=== PATIENT | male | born 1935 | race Caucasian/White ===

== ENCOUNTER 2018-06-18 11:32 | Emergency (ER) | payer MEDICARE, BC ==
[2018-06-18 12:03] VITALS: BP 158/90; PULSE 70; RESP 18; TEMP 98.4
--- NOTE | 2018-06-18 12:21 | ED ---
General Adult HPI - General Chief complaint: Skin/Abscess/Foreign Body Stated complaint: bleeding cyst in stomach Time Seen by Provider: 06/18/18 12:07 Source: patient Mode of arrival: ambulatory Limitations: no limitations - History of Present Illness Initial comments: 83-year-old male presenting with left lower abdominal quadrant skin lesion that he noticed 2 days ago. He denies any trauma, itching, pain to the area. He states he nurse's small amount bleeding from it today. He denies any fevers chills, chest pain shortness of breath, nausea vomiting diarrhea, other rashes. He did have a basal cell carcinoma removed recently but denies any other similar skin lesions. - Related Data Home Medications Medication Instructions Recorded Confirmed Tamsulosin HCl [Flomax] 0.4 mg PO BID 11/25/14 12/13/15 Finasteride [Proscar] 5 mg PO DAILY 11/11/15 12/13/15 Lovastatin [Mevacor] 40 mg PO HS 11/11/15 12/13/15 Multivit-Min/FA/Lycopen/Lutein 1 tab PO DAILY 11/11/15 12/13/15 [Centrum Silver Tablet] Ranitidine HCl [Zantac] 300 mg PO BID 11/11/15 12/13/15 amLODIPine BESYLATE/BENAZEPRIL 1 cap PO BID 11/11/15 12/13/15 [Lotrel 5-20 mg Capsule] Previous Rx's Medication Instructions Recorded Cephalexin [Keflex] 500 mg PO Q6HR 7 Days #28 cap 06/18/18 Allergies Allergy/AdvReac Type Severity Reaction Status Date / Time No Known Allergies Allergy Verified 12/13/15 11:32 Review of Systems ROS Statement: Those systems with pertinent positive or pertinent negative responses have been documented in the HPI. Review of Systems Constitutional: Denies fever, chills Eyes: Denies change in vision, Denies pain Ears, nose, mouth, throat: Denies headaches, Denies sore throat Cardiovascular: Denies chest pain. Denies palpitations Respiratory: Denies shortness of breath, Denies cough Gastrointestinal: Denies abdominal pain. Denies nausea, vomiting, diarrhea. Genitourinary: Denies hematuria, Denies infections Musculoskeletal: Denies pain, Denies swelling Integumentary: Positive rash Neurological: Denies headache, focal weakness, focal numbness Psychiatric: Denies anxiety, Denies depression Hematologic/Lymphatic: Denies easy bleeding or bruising ROS Other: All systems not noted in ROS Statement are negative. Past Medical History Past Medical History: Hypertension, Prostate Disorder History of Any Multi-Drug Resistant Organisms: None Reported Past Surgical History: Appendectomy Additional Past Surgical History / Comment(s): L sided basal cell carcinoma removed from L ear Past Psychological History: No Psychological Hx Reported Smoking Status: Never smoker Past Alcohol Use History: None Reported Past Drug Use History: None Reported General Exam - General Exam Comments Initial Comments: General: Awake, alert, No acute Distress HENT: Normocephalic. Atraumatic Eyes: PERRL. EOMI. No scleral icterus. No injected conjunctiva Neck: Full ROM Chest/Lungs: Clear to auscultation bilaterally. No wheezing, rhonchi, or rales Cardiac: Regular rate, rhythm. No murmurs or rubs Abdomen/GI: Soft, nontender, nondistended. No rebound, guarding, or rigidity. Musculoskeletal: Full ROM Skin: Warm, dry, intact. 1 cm circular lesion with serosanginous drainage. No induration or flluctuance. No warmth. Neurologic: A/Ox3, no weakness, no sensory deficit, no abnormal gait, no coordination deficit Limitations: no limitations Course Vital Signs 06/18/18 12:00 Temperature 98.4 F Pulse Rate 70 Respiratory 18 Rate Blood Pressure 158/90 O2 Sat by Pulse 93 L Oximetry Medical Decision Making - Medical Decision Making 83-year-old male presenting with skin lesion.On initial exam the patient is awake, alert, and in NAD. VSS. The lesion is not warm, there is no induration or fluctuance. Bedside ultrasound showed no area of fluid collection to be drained. A line of demarcation was drawn around the wound and it was dressed with Neosporin and a Band-Aid. The patient was instructed start taking Keflex tomorrow if the if any erythema extends beyond the line. He hasn't with his primary care physician on July 01 he was instructed to see him earlier this week for wound recheck. The patient is nontoxic and well-appearing and there is no evidence of systemic infection.No further emergent workup indicated. The patient was given return to ED instructions. They were instructed to follow up with their primary care provider. Stable for discharge at this time. Disposition Clinical Impression: Skin abnormality Disposition: HOME SELF-CARE Condition: Good Instructions: Cellulitis (ED) Prescriptions: Cephalexin [Keflex] 500 mg PO Q6HR 7 Days #28 cap Is patient prescribed a controlled substance at d/c from ED?: No
== END 2018-06-18 12:58 | disposition home or self-care (01) ==
LOC: EC 11:32
DX: L98.9 Disorder of the skin and subcutaneous tissue, unspecified (principal); I10 Essential (primary) hypertension; N42.9 Disorder of prostate, unspecified; Z85.828 Personal history of other malignant neoplasm of skin; Z90.49 Acquired absence of other specified parts of digestive tract; Z79.899 Other long term (current) drug therapy
CPT/HCPCS: 99283

== ENCOUNTER 2019-01-30 21:08 | Emergency (ER) | payer MEDICARE ==
[2019-01-30 21:39] VITALS: RESP 18; TEMP 98.5
[2019-01-30 22:50] VITALS: BP 136/83; PULSE 88
--- NOTE | 2019-01-30 23:32 | ED ---
ENT HPI - General Source: patient Mode of arrival: ambulatory Limitations: no limitations <Denise Lloyd - Last Filed: 01/31/19 04:28> <Ericka Salas - Last Filed: 01/31/19 06:17> - General Chief complaint: ENT Stated complaint: High BP, had a nosebleed - History of Present Illness Initial comments: 84-year-old male patient presents to the emergency department today for evaluation of epistaxis and elevated blood pressure. Patient states that around quarter after 8 this evening he developed nosebleed. Patient states he is ex periencing bleeding from the right nostril. Patient states this lasted approximately 45 minutes before stopped. Patient states during the nose. He did check his blood pressure was elevated in the 180s systolic, with diastolic around 100. Patient states he did check his blood pressures 6 or 7 times within a half an hour. In all blood pressures were elevated. Patient states he does take blood pressure medication Lotrel once in the morning and once at night. Patient denies any headache, facial pain, blurred vision, or double vision. Denies any chest pain or shortness of breath. Patient states he takes a baby aspirin but denies any other blood thinning medications. Denies any history of nosebleeds or nasal trauma. Patient denies any recent rash, fever, chills, abdominal pain, nausea, vomiting, diarrhea, constipation, back pain, numbness, tingling, dizziness, weakness, hematuria, dysuria, urinary urgency, urinary frequency, headache, visual changes, or any other complaints. (Denise Lloyd) - Related Data Home Medications Medication Instructions Recorded Confirmed Tamsulosin HCl [Flomax] 0.4 mg PO BID 11/25/14 12/13/15 Finasteride [Proscar] 5 mg PO DAILY 11/11/15 12/13/15 Lovastatin [Mevacor] 40 mg PO HS 11/11/15 12/13/15 Multivit-Min/FA/Lycopen/Lutein 1 tab PO DAILY 11/11/15 12/13/15 [Centrum Silver Tablet] Ranitidine HCl [Zantac] 300 mg PO BID 11/11/15 12/13/15 amLODIPine BESYLATE/BENAZEPRIL 1 cap PO BID 11/11/15 12/13/15 [Lotrel 5-20 mg Capsule] Previous Rx's Medication Instructions Recorded Cephalexin [Keflex] 500 mg PO Q6HR 7 Days #28 cap 06/18/18 Allergies Allergy/AdvReac Type Severity Reaction Status Date / Time No Known Allergies Allergy Verified 01/30/19 21:39 Review of Systems ROS Other: All systems not noted in ROS Statement are negative. <Denise Lloyd M - Last Filed: 01/31/19 04:28> ROS Other: All systems not noted in ROS Statement are negative. <Ericka Salas - Last Filed: 01/31/19 06:17> ROS Statement: Those systems with pertinent positive or pertinent negative responses have been documented in the HPI. Past Medical History Past Medical History: Hypertension, Prostate Disorder History of Any Multi-Drug Resistant Organisms: None Reported Past Surgical History: Appendectomy Additional Past Surgical History / Comment(s): L sided basal cell carcinoma removed from L ear, Past Psychological History: No Psychological Hx Reported Smoking Status: Never smoker Past Alcohol Use History: Daily Past Drug Use History: None Reported <Denise Lloyd M - Last Filed: 01/31/19 04:28> General Exam Limitations: no limitations General appearance: alert, in no apparent distress, other (Physical well- developed, well-nourished elderly male patient in no acute distress. Vital signs upon presentation are temperature 98.5F, pulse 95, respirations 18, blood pressure 167/91, pulse ox 93% on room air.) Eye exam: Present: normal appearance, PERRL, EOMI. Absent: scleral icterus, conjunctival injection, periorbital swelling ENT exam: Present: normal oropharynx, mucous membranes moist, other (Dried blood noted to the right naris. No evidence of septal hematoma or obvious nasal injury.). Absent: normal exam Neck exam: Present: normal inspection. Absent: tenderness, meningismus, lymphadenopathy Respiratory exam: Present: normal lung sounds bilaterally. Absent: respiratory distress, wheezes, rales, rhonchi, stridor Cardiovascular Exam: Present: regular rate, normal rhythm, normal heart sounds. Absent: systolic murmur, diastolic murmur, rubs, gallop, clicks GI/Abdominal exam: Present: soft, normal bowel sounds. Absent: distended, tenderness, guarding, rebound, rigid Neurological exam: Present: alert, oriented X3, CN II-XII intact Psychiatric exam: Present: normal affect, normal mood Skin exam: Present: warm, dry, intact, normal color. Absent: rash <Denise Lloyd - Last Filed: 01/31/19 04:28> Course Vital Signs 01/30/19 01/30/19 21:35 22:49 Temperature 98.5 F Pulse Rate 95 88 Respiratory 18 18 Rate Blood Pressure 167/91 136/83 O2 Sat by Pulse 93 L 94 L Oximetry Medical Decision Making <Denise Lloyd - Last Filed: 01/31/19 04:28> <Ericka Salas - Last Filed: 01/31/19 06:17> - Medical Decision Making 84-year-old male patient presented to the emergency department today for evaluation of nasal bleeding and elevated blood pressure. Physical examination did reveal dried blood to the right knee are however no active bleeding was noted. Patient's blood pressure did improve while in the emergency department to the 130s over 80s. He denies any current symptoms. We did discussed use of [id number] nasal saline to keep nasal passages moist. We discussed applying pressure if bleeding should recur. He is instructed to keep a log of his blood pressures and to follow-up with his primary care physician for recheck in 1-2 days. Return parameters were discussed in detail. He verbalizes understanding and agrees with this plan. (Denise Lloyd) I was available for consultation in the emergency department. The history and physical exam were done by the midlevel provider. I was consulted for this patient's care. I reviewed the case with the midlevel provider and based on their presentation of the patient, I agree with the assessment, medical decision making and plan of care as documented. Chart was dictated using [employer] dictation software. Attempts were made to correct any dictation errors however some typographical errors may persist. (Ericka Salas) Disposition Is patient prescribed a controlled substance at d/c from ED?: No Time of Disposition: 23:31 <Denise Lloyd - Last Filed: 01/31/19 04:28> <Ericka Salas - Last Filed: 01/31/19 06:17> Clinical Impression: Epistaxis, Hypertension Disposition: HOME SELF-CARE Condition: Good Instructions (If sedation given, give patient instructions): Nosebleed (ED), Hypertension (ED) Additional Instructions: Obtain nasal saline [id number]-vwo-[id number] and use to the nostrils 2-3 times a day to keep nasal passages moist. If bleeding recurs apply pressure for 20 minutes without letting up. It is process twice, bleeding continues present to the nearest emergency department for immediate evaluation. Monitor blood pressures over the next week, keep a log. Follow-up through primary care physician for recheck take the blood pressure log with you. Return to the emergency department immediately for any new, worsening, or concerning symptoms. Referrals: Hugh Walter MD [Primary Care Provider] - 1-2 days
== END 2019-01-31 00:04 | disposition home or self-care (01) ==
LOC: EC 21:08
DX: I10 Essential (primary) hypertension (principal); R04.0 Epistaxis; N42.9 Disorder of prostate, unspecified; Z79.82 Long term (current) use of aspirin; Z79.899 Other long term (current) drug therapy
CPT/HCPCS: 99283

== ENCOUNTER 2019-11-09 07:24 | Inpatient (IN) | payer MEDICARE ==
[2019-11-09] MEDS ORDERED: PANTOPRAZOLE 40 MG/10 ML VIAL IVP STA (07:51)
--- NOTE | 2019-11-09 07:54 | ED ---
General Adult HPI - General Chief complaint: GI Bleed Stated complaint: Rectal Bleeding Time Seen by Provider: 11/09/19 07:35 Source: patient, RN notes reviewed Mode of arrival: ambulatory Limitations: no limitations - History of Present Illness Initial comments: Patient is a pleasant 84-year-old male presenting to the emergency department with rectal bleeding. Patient did feel somewhat constipated and did take oral Dulcolax. Patient did have an episode of bright red blood per rectum around 36 hours ago. Patient had another episode is morning. No rectal pain. No abdominal pain. No history of similar symptoms. No nausea or vomiting. No weakness or fatigue or dyspnea. - Related Data Home Medications Medication Instructions Recorded Confirmed Tamsulosin HCl [Flomax] 0.4 mg PO BID 11/25/14 11/09/19 Finasteride [Proscar] 5 mg PO DAILY 11/11/15 11/09/19 Lovastatin [Mevacor] 40 mg PO HS 11/11/15 11/09/19 Ranitidine HCl [Zantac] 300 mg PO BID 11/11/15 11/09/19 amLODIPine BESYLATE/BENAZEPRIL 1 cap PO BID 11/11/15 11/09/19 [Lotrel 5-20 mg Capsule] Allergies Allergy/AdvReac Type Severity Reaction Status Date / Time No Known Allergies Allergy Verified 11/09/19 08:24 Review of Systems ROS Statement: Those systems with pertinent positive or pertinent negative responses have been documented in the HPI. ROS Other: All systems not noted in ROS Statement are negative. Constitutional: Denies: fever Eyes: Denies: eye pain ENT: Denies: ear pain Respiratory: Denies: cough Cardiovascular: Denies: chest pain Endocrine: Denies: fatigue Gastrointestinal: Reports: as per HPI. Denies: abdominal pain, nausea, vomiting , diarrhea Genitourinary: Denies: dysuria Musculoskeletal: Denies: back pain Skin: Denies: rash Neurological: Denies: weakness Past Medical History Past Medical History: Hypertension, Prostate Disorder History of Any Multi-Drug Resistant Organisms: None Reported Past Surgical History: Appendectomy Additional Past Surgical History / Comment(s): L sided basal cell carcinoma removed from L ear, Past Psychological History: No Psychological Hx Reported Smoking Status: Never smoker Past Alcohol Use History: Daily Past Drug Use History: None Reported General Exam Limitations: no limitations General appearance: alert, in no apparent distress Head exam: Present: normocephalic Eye exam: Present: normal appearance, PERRL ENT exam: Present: normal oropharynx Neck exam: Present: normal inspection Respiratory exam: Present: normal lung sounds bilaterally Cardiovascular Exam: Present: regular rate, normal rhythm Expanded Peripheral pulses: 2+: Dorsalis Pedis (R), Dorsalis Pedis (L) GI/Abdominal exam: Present: soft. Absent: distended, tenderness, guarding, rebound, rigid Rectal exam: Present: normal inspection, normal rectal tone, other (No stool on exam) Extremities exam: Present: normal inspection Neurological exam: Present: alert Psychiatric exam: Present: normal affect, normal mood Skin exam: Present: normal color Course Vital Signs 11/09/19 07:31 Temperature 97.8 F Pulse Rate 71 Respiratory 19 Rate Blood Pressure 181/106 O2 Sat by Pulse 94 L Oximetry Medical Decision Making - Medical Decision Making Patient reevaluated and updated. Case discussed with Dr. Bustillo, who will admit covering for medical call. - Lab Data Result diagrams: 11/09/19 08:04 11/09/19 08:04 Lab Results 11/09/19 11/09/19 11/09/19 Range/Units 08:04 08:04 08:04 WBC 4.6 (3.8-10.6) k/uL RBC 5.31 (4.30-5.90) m/uL Hgb 16.6 (13.0-17.5) gm/dL Hct 50.0 (39.0-53.0) % MCV 94.1 (80.0-100.0) fL MCH 31.2 (25.0-35.0) pg MCHC 33.2 (31.0-37.0) g/dL RDW 13.1 (11.5-15.5) % Plt Count 128 L (150-450) k/uL Neutrophils % 67 % Lymphocytes % 19 % Monocytes % 8 % Eosinophils % 2 % Basophils % 0 % Neutrophils # 3.1 (1.3-7.7) k/uL Lymphocytes # 0.9 L (1.0-4.8) k/uL Monocytes # 0.4 (0-1.0) k/uL Eosinophils # 0.1 (0-0.7) k/uL Basophils # 0.0 (0-0.2) k/uL PT 10.9 (9.0-12.0) sec INR 1.1 (<1.2) APTT 24.4 (22.0-30.0) sec Sodium (137-145) mmol/L Potassium (3.5-5.1) mmol/L Chloride (98-107) mmol/L Carbon Dioxide (22-30) mmol/L Anion Gap mmol/L BUN (9-20) mg/dL Creatinine (0.66-1.25) mg/dL Est GFR (CKD-EPI)AfAm (>60 ml/min/1.73 sqM) Est GFR (CKD-EPI)NonAf (>60 ml/min/1.73 sqM) Glucose (74-99) mg/dL Calcium (8.4-10.2) mg/dL Total Bilirubin (0.2-1.3) mg/dL AST (17-59) U/L ALT (4-49) U/L Alkaline Phosphatase (38-126) U/L Total Protein (6.3-8.2) g/dL Albumin (3.5-5.0) g/dL Stool Occult Blood Positive (Negative) 11/09/19 Range/Units 08:04 WBC (3.8-10.6) k/uL RBC (4.30-5.90) m/uL Hgb (13.0-17.5) gm/dL Hct (39.0-53.0) % MCV (80.0-100.0) fL MCH (25.0-35.0) pg MCHC (31.0-37.0) g/dL RDW (11.5-15.5) % Plt Count (150-450) k/uL Neutrophils % % Lymphocytes % % Monocytes % % Eosinophils % % Basophils % % Neutrophils # (1.3-7.7) k/uL Lymphocytes # (1.0-4.8) k/uL Monocytes # (0-1.0) k/uL Eosinophils # (0-0.7) k/uL Basophils # (0-0.2) k/uL PT (9.0-12.0) sec INR (<1.2) APTT (22.0-30.0) sec Sodium 139 (137-145) mmol/L Potassium 3.9 (3.5-5.1) mmol/L Chloride 107 (98-107) mmol/L Carbon Dioxide 28 (22-30) mmol/L Anion Gap 4 mmol/L BUN 16 (9-20) mg/dL Creatinine 0.97 (0.66-1.25) mg/dL Est GFR (CKD-EPI)AfAm 83 (>60 ml/min/1.73 sqM) Est GFR (CKD-EPI)NonAf 72 (>60 ml/min/1.73 sqM) Glucose 103 H (74-99) mg/dL Calcium 8.3 L (8.4-10.2) mg/dL Total Bilirubin 0.7 (0.2-1.3) mg/dL AST 20 (17-59) U/L ALT 12 (4-49) U/L Alkaline Phosphatase 61 (38-126) U/L Total Protein 6.2 L (6.3-8.2) g/dL Albumin 3.6 (3.5-5.0) g/dL Stool Occult Blood (Negative) Disposition Clinical Impression: Lower gastrointestinal hemorrhage Disposition: ADMITTED IP TO THIS HOSP Is patient prescribed a controlled substance at d/c from ED?: No Referrals: Hugh Walter MD [Primary Care Provider] - 1-2 days Decision Time: 10:00
[2019-11-09 08:24] LABS: Basophils % (A) 0 %; Eosinophils # (A) 0.1 k/uL (0-0.7); Eosinophils % (A) 2 %; HGB 16.6 gm/dL (13.0-17.5); Lymphocytes # (A) 0.9 k/uL (1.0-4.8); Lymphocytes % (A) 19 %; MCH 31.2 pg (25.0-35.0); MCHC 33.2 g/dL (31.0-37.0); MCV 94.1 fL (80.0-100.0); Mean Platelet Volume 7.2; Monocytes # (A) 0.4 k/uL (0-1.0); Monocytes % (A) 8 %; Neutrophils # (A) 3.1 k/uL (1.3-7.7); Neutrophils % (A) 67 %; Platelet Count 128 k/uL (150-450); RBC 5.31 m/uL (4.30-5.90); RDW 13.1 % (11.5-15.5); WBC 4.6 k/uL (3.8-10.6)
--- NOTE | 2019-11-09 08:29 | XR ---
EXAMINATION TYPE: XR abdomen 1V DATE OF EXAM: 11/09/2019 8:23 AM CLINICAL HISTORY: Rectal bleeding. TECHNIQUE: Two Upright KUB images of the abdomen are obtained. COMPARISON: None. FINDINGS: Scattered gas is seen in non-distended small bowel loops. Gas and fecal material is seen in non-distended colon. There is small left pleural effusion. Cardiomegaly. Osseous structures are kailey neralized. No pneumoperitoneum or suspicious calcifications. IMPRESSION: Overall nonobstructive bowel gas pattern.
[2019-11-09 08:34] LABS: INR 1.1 (<1.2); Partial Thromboplastin Time 24.4 sec (22.0-30.0); Prothrombin Time 10.9 sec (9.0-12.0)
[2019-11-09 08:37] LABS: Albumin 3.6 g/dL (3.5-5.0); Calcium 8.3 mg/dL (8.4-10.2); Potassium 3.9 mmol/L (3.5-5.1); Total Bilirubin 0.7 mg/dL (0.2-1.3); Total Protein 6.2 g/dL (6.3-8.2)
[2019-11-09] MEDS ORDERED: NALOXONE 0.4 MG/ML 1 ML VIAL IV PRN ×2 (10:00→11:17)
[2019-11-09] MEDS: SODIUM CHLORIDE 0.9% 1,000 ML IV SCH ×2 (11:01→21:34)
--- NOTE | 2019-11-09 11:29 | P.HPIM ---
History of Present Illness H&P Date: 11/09/19 Chief Complaint: Bleeding 84-year-old male presenting to the emergency department with rectal bleeding. Over the last few days patient has been feeling constipated, did not have a bowel movement for 2-3 days. He took oral Dulcolax. Patient had an episode of bright red blood per rectum around 36 hours ago then had another episode this morning. He states that he has history of hemorrhoids but they never bled in the past. He had constipation on and off but does not take any laxative on a regular basis. No rectal pain. No abdominal pain. No history of similar symptoms. No nausea or vomiting. No weakness or fatigue or dyspnea. No fevers or chills, no recent illness. In the emergency department her vital signs were all within normal limits. Hemoglobin was normal. No further bleeding was noted in the ER. He was admitted for further evaluation by GI. Review of Systems Complete review of system performed, pertinent positives per HPI, otherwise negative. Past Medical History Past Medical History: Hypertension, Prostate Disorder History of Any Multi-Drug Resistant Organisms: None Reported Past Surgical History: Appendectomy Additional Past Surgical History / Comment(s): L sided basal cell carcinoma removed from L ear, Past Psychological History: No Psychological Hx Reported Smoking Status: Never smoker Past Alcohol Use History: Daily Past Drug Use History: None Reported Medications and Allergies Home Medications Medication Instructions Recorded Confirmed Type Tamsulosin HCl [Flomax] 0.4 mg PO BID 11/25/14 11/09/19 History Finasteride [Proscar] 5 mg PO DAILY 11/11/15 11/09/19 History Lovastatin [Mevacor] 40 mg PO HS 11/11/15 11/09/19 History Ranitidine HCl [Zantac] 300 mg PO BID 11/11/15 11/09/19 History amLODIPine BESYLATE/BENAZEPRIL 1 cap PO BID 11/11/15 11/09/19 History [Lotrel 5-20 mg Capsule] Allergies Allergy/AdvReac Type Severity Reaction Status Date / Time No Known Allergies Allergy Verified 11/09/19 08:24 Physical Exam Vitals: Vital Signs Temp Pulse Resp BP Pulse Ox 11/09/19 10:20 89 18 144/89 94 L 11/09/19 07:31 97.8 F 71 19 181/106 94 L Intake and Output 0311/09/19 11/09/19 22:59 06:59 14:59 Other: Weight 109.679 kg Constitutional: No acute distress, conversant, pleasant Eyes:Anicteric sclerae, moist conjunctiva, no lid-lag, PERRLA, ENMT: Oropharynx clear, no erythema, exudates Neck: Supple, FROM, no masses, or JVD, No carotid bruits, No thyromegaly Lungs: Clear to auscultation, Clear to percussion, Normal respiratory effort, no accessory muscle use Cardiovascular: Heart regular in rate and rhythm, No murmurs, gallops, or rubs, No peripheral edema Abdominal: Soft, Nontender, no guarding, rebound or rigidity, Normoactive bowel sounds, No hepatomegaly, No splenomegaly, No palpable mass Skin: Normal temperature, tone, texture, turgor, no induration, No subcutaneous nodules, No rash, lesions, No ulcers Extremities: No digital cyanosis, No clubbing, Pedal pulses intact and symmetrical, Radial pulses intact and symmetrical, No calf tenderness Psychiatric: Alert and oriented to person, place and time, appropriate affect, intact judgement Neuro: Muscles Strength 5/5 in all 4 extremities, Sensation to light touch grossly present throughout, Cranial nerves II-XII grossly intact, no focal sensory deficits Results CBC & Chem 7: 11/09/19 08:04 11/09/19 08:04 Labs: Abnormal Lab Results - Last 24 Hours (Table) 11/09/19 11/09/19 Range/Units 08:04 08:04 Plt Count 128 L (150-450) k/uL Lymphocytes # 0.9 L (1.0-4.8) k/uL Glucose 103 H (74-99) mg/dL Calcium 8.3 L (8.4-10.2) mg/dL Total Protein 6.2 L (6.3-8.2) g/dL Assessment and Plan Plan: Acute lower GI bleeding Case discussed with GI, no plans for colonoscopy at this point. Bleeding is likely secondary to internal hemorrhoids We'll use Anusol rectal cream Monitor CBC Advised to take laxatives on a regular basis. Essential hypertension BPH Stable Resume meds Patient admitted to inpatient, expected length of stay more than 2 midnights Anticipated disposition: home anticipated discharge: 1-2 days
[2019-11-09] MEDS: FAMOTIDINE 20 MG TAB PO SCH ×2 (12:51→21:35)
[2019-11-09] MEDS: TAMSULOSIN 0.4 MG CAP.ER.24H PO SCH ×2 (12:51→21:35)
[2019-11-09] MEDS: amLODIPine 5 MG TAB PO SCH ×2 (12:51→21:35)
[2019-11-09] MEDS: FINASTERIDE 5 MG TAB PO SCH (12:51)
[2019-11-09] MEDS: LISINOPRIL 20 MG TAB PO SCH (12:51)
[2019-11-09] MEDS: HYDROCORTISONE 2.5% RECTAL CREAM 30 GM TUBE RECTAL SCH ×2 (12:52→21:36)
--- NOTE | 2019-11-09 20:24 | P.CONS ---
History of Present Illness - Reason for Consult Consult date: 11/09/19 Rectal bleeding Requesting physician: Adarsh Emanuel - Chief Complaint Rectal bleeding - History of Present Illness 84-year-old male with a medical history significant for hypertension, BPH and dyslipidemia who presented to the hospital due to reports of right red blood per rectum. The patient reports 2 episodes of painless bright red blood per rectum prior to presentation. He reports intermittent constipation over the past year. He reports that during times of constipation he will take MiraLAX as needed in order to bowel movement. Earlier in the week the patient had been suffering from constipation for 2-3 days and noted blood on the toilet paper and in the bowl after having a bowel movement. He does state that he was having significant straining with a bowel movement but denies any pain or cramping. No nausea, vomiting or melena. He does take aspirin daily. The patient subsequently had a further bloody bowel movement and presented for further e valuation. No prior history of GI bleed reported. Last colonoscopy over 10 years ago per his recollection and negative. The patient had an x-ray of the abdomen which was negative and stool testing which was positive. Hemoglobin on presentation 16.6 with WBC 4.6, platelet count 128,000 and INR 1.1. No further episodes since presentation. Review of Systems REVIEW OF SYSTEMS: CONSTITUTIONAL: Denies any fevers, chills, weight change or fatigue. CARDIOVASCULAR: Denies any chest pain, palpitations high or low blood pressures RESPIRATORY: Denies any shortness of breath, hemoptysis or cough. GENITOURINARY: No dysuria or hematuria, patient has a known history of BPH. MUSCULOSKELETAL: No weakness reported. SKIN: Denies any new rashes or lesions, jaundice or pallor. PSYCHIATRIC: Denies any depression or anxiety. NEUROLOGY: Denies headache, denies any new focal deficits. EARS/NOSE/THROAT: No recent hearing change, congestion, nasal discharge or sore throat. EYES: No pain in eyes, discharge or change in vision. GASTROINTESTINAL: As per HPI. Past Medical History Past Medical History: Hypertension, Prostate Disorder History of Any Multi-Drug Resistant Organisms: None Reported Past Surgical History: Appendectomy Additional Past Surgical History / Comment(s): L sided basal cell carcinoma removed from L ear, Past Psychological History: No Psychological Hx Reported Smoking Status: Never smoker Past Alcohol Use History: Daily Past Drug Use History: None Reported - Past Family History Mother Family Medical History: CVA/TIA Father Family Medical History: Myocardial Infarction ([place]) Medications and Allergies Home Medications Medication Instructions Recorded Confirmed Type Tamsulosin HCl [Flomax] 0.4 mg PO BID 11/25/14 11/09/19 History Finasteride [Proscar] 5 mg PO DAILY 11/11/15 11/09/19 History Lovastatin [Mevacor] 40 mg PO HS 11/11/15 11/09/19 History Ranitidine HCl [Zantac] 300 mg PO BID 11/11/15 11/09/19 History amLODIPine BESYLATE/BENAZEPRIL 1 cap PO BID 11/11/15 11/09/19 History [Lotrel 5-20 mg Capsule] Allergies Allergy/AdvReac Type Severity Reaction Status Date / Time No Known Allergies Allergy Verified 11/09/19 08:24 Physical Exam Vitals: Vital Signs Temp Pulse Pulse Resp BP BP Pulse Ox 11/09/19 16:00 76 17 11/09/19 15:00 97.8 F 76 17 145/88 89 L 11/09/19 13:04 18 11/09/19 10:40 97.8 F 89 18 144/89 94 L 11/09/19 10:20 89 18 144/89 94 L 11/09/19 07:31 97.8 F 71 19 181/106 94 L Intake and Output 11/09/19 11/09/19 11/09/19 06:59 14:59 22:59 Intake Total 600 Balance 600 Intake: Intake, IV Titration 350 Amount Sodium Chloride 0.9% 1, 350 000 ml @ 100 mls/hr IV . Q10H [facility] Rx#:[id number] Oral 250 Other: Weight 109.679 kg On physical examination, patient appears comfortable in no apparent distress. HEAD: Normocephalic, atraumatic. EYES: No scleral icterus. No conjunctival injection. MOUTH: No lesions, tongue midline. NECK: Trachea midline, no gross abnormalities. CHEST: Clear to auscultation with no wheezing or rhonchi appreciated. HEART: Regular rate and rhythm. ABDOMEN: Soft, obese. Bowel sounds are positive. No organomegaly. No guarding or rigidity. EXTREMITIES: No pedal edema. SKIN: No rashes, no jaundice. NEUROLOGIC: Alert and oriented x3. No focal deficits. Results CBC & Chem 7: 11/09/19 08:04 11/09/19 08:04 Labs: Abnormal Lab Results - Last 24 Hours (Table) 11/09/19 11/09/19 Range/Units 08:04 08:04 Plt Count 128 L (150-450) k/uL Lymphocytes # 0.9 L (1.0-4.8) k/uL Glucose 103 H (74-99) mg/dL Calcium 8.3 L (8.4-10.2) mg/dL Total Protein 6.2 L (6.3-8.2) g/dL Abdominal x-ray: report reviewed (Overall nonobstructive bowel gas pattern on x- ray abdomen.) Assessment and Plan (1) Lower gastrointestinal hemorrhage Narrative/Plan: 84-year-old male with no prior history of GI bleeding presenting to the hospital with complaints of 2 episodes of painless bright red blood per rectum. Patient reports intermittent constipation over the past year and prior to development of painless bright red blood per rectum. He'll intermittently uses MiraLAX for improvement of his constipation. He does report straining prior to seeing the blood both with wiping and in the toilet paper. Last colonoscopy over 10 years ago. No prior history of GI bleed. No abdominal pain or cramping reported. He does report some perirectal soreness. Unknown etiology of GI bleed with gregory picion for likely perirectal disease, cannot rule out diverticular bleed, AVM, malignancy or other etiology. Current Visit: Yes Status: Acute Code(s): K92.2 - GASTROINTESTINAL HEMORRHAGE, UNSPECIFIED SNOMED Code(s): 95551636 Plan: Supportive care Clear liquid diet Monitor hemoglobin and hematocrit and transfuse as needed Local hemorrhoidal care MiraLAX nightly Will hold off on endoscopic evaluation at this time, but can consider in the future either during hospitalization as patient has further rectal bleeding or fall in hemoglobin or in the outpatient setting after discharge Anusol twice a day Thank you for allowing us to participate in the care of the patient we will continue to follow
[2019-11-09] MEDS ORDERED: ATORVASTATIN 10 MG TAB PO SCH (21:00)
[2019-11-09] MEDS ORDERED: POLYETHYLENE GLYCOL 3350 17 GM POWD.PACK PO SCH (21:00)
[2019-11-09 21:02] VITALS: RESP 18
[2019-11-10 02:01] VITALS: PULSE 76
[2019-11-10] MEDS: SODIUM CHLORIDE 0.9% 1,000 ML IV SCH (05:55)
[2019-11-10 07:00] LABS: Basophils % (A) 0 %; Eosinophils # (A) 0.1 k/uL (0-0.7); Eosinophils % (A) 2 %; HGB 15.5 gm/dL (13.0-17.5); Lymphocytes # (A) 1.1 k/uL (1.0-4.8); Lymphocytes % (A) 21 %; MCH 31.3 pg (25.0-35.0); MCHC 33.1 g/dL (31.0-37.0); MCV 94.6 fL (80.0-100.0); Mean Platelet Volume 7.3; Monocytes # (A) 0.4 k/uL (0-1.0); Monocytes % (A) 7 %; Neutrophils # (A) 3.5 k/uL (1.3-7.7); Neutrophils % (A) 67 %; Platelet Count 131 k/uL (150-450); RBC 4.97 m/uL (4.30-5.90); RDW 13.1 % (11.5-15.5); WBC 5.2 k/uL (3.8-10.6)
[2019-11-10 07:11] LABS: African American GFR (CKD) >90 (>60 ml/min/1.73 sqM); Anion Gap 3 mmol/L; Blood Urea Nitrogen 10 mg/dL (9-20); Calcium 8.1 mg/dL (8.4-10.2); Carbon Dioxide 27 mmol/L (22-30); Chloride 107 mmol/L (98-107); Glucose 90 mg/dL (74-99); Non-African American GFR(CKD) 79 (>60 ml/min/1.73 sqM); Sodium 137 mmol/L (137-145)
[2019-11-10 07:35] VITALS: BP 154/82; TEMP 98.4
[2019-11-10] MEDS: FAMOTIDINE 20 MG TAB PO SCH (07:58)
[2019-11-10] MEDS: FINASTERIDE 5 MG TAB PO SCH (07:58)
[2019-11-10] MEDS: LISINOPRIL 20 MG TAB PO SCH (07:58)
[2019-11-10] MEDS: amLODIPine 5 MG TAB PO SCH (07:58)
[2019-11-10] MEDS: TAMSULOSIN 0.4 MG CAP.ER.24H PO SCH (07:59)
[2019-11-10] MEDS: HYDROCORTISONE 2.5% RECTAL CREAM 30 GM TUBE RECTAL SCH (07:59)
[2019-11-10] MEDS ORDERED: PANTOPRAZOLE 40 MG/10 ML VIAL IV SCH (09:00)
[2019-11-10] MEDS ORDERED: WITCH HAZEL 1 EACH MED..PAD TOPICAL PRN (11:53)
[2019-11-10] MEDS ORDERED: HYDROCORTISONE SUPPOSITORY 25 MG SUPP RECTAL SCH (12:00)
--- NOTE | 2019-11-10 13:07 | P.DS ---
Providers Date of admission: 11/09/19 11:17 Expected date of discharge: 11/10/19 Attending physician: Adarsh Emanuel MD Consults: 11/09/19 10:01 Consult Physician Urgent Consulting Provider: Antwan Porras Consult Reason/Comments: gi hemorrhage Do you want consulting provider notified?: Yes Primary care physician: [facility] Course: 84-year-old male presenting to the emergency department with rectal bleeding. Over the last few days patient has been feeling constipated, did not have a bowel movement for 2-3 days. He took oral Dulcolax. Patient had an episode of bright red blood per rectum around 36 hours ago then had another episode this morning. He states that he has history of hemorrhoids but they never bled in the past. His hemoglobin on admission was 16.6. His hemoglobin the following day was 15.5. He was evaluated by GI and recommended colonoscopy in the outpatient setting and symptomatic treatment for hemorrhoids. Patient was seen and examined. No acute events overnight. Patient reports streaks of blood when he wipes but has not had a bowel movement today. He denies any chest pain, shortness of breath or palpitations. No nausea or vomiting. No fever or chills. General: [non toxic], [no distress], [appears at stated age] Derm: [warm], [dry] Head: [atraumatic], [normocephalic], [symmetric] Eyes: [EOMI], [no lid lag], [anicteric sclera] Mouth: [no lip lesion], [mucus membranes moist] Cardiovascular: [S1S2 reg], [no murmur], [positive DP pulse bilateral], Lungs: [CTA bilateral], [no rhonchi, no rales] , [no accessory muscle use] Abdominal: [soft], [ nontender to palpation], [no guarding], [no appreciable organomegaly] Ext: [no gross muscle atrophy], [no edema], [no contractures] Neuro: [no focal neuro deficits] Psych: [Alert], [oriented], [appropriate affect] Acute lower GI bleed likely hemorrhoids Hypertension BPH Patient's hemoglobin has been stable during his admission. His stool for occult blood was positive. GI has evaluated the patient and recommended supportive care, advancing his diet and monitoring hemoglobin. I discussed the case with Dr. Porras, colonoscopy recommended in the outpatient setting. He has been started on hydrocortisone rectal suppository along with witch rich. His blood pressure today is 154/82. His home medication of amlodipine has been resumed. We'll monitor the patient during lunch for which she has been started on low fiber diet. If there is no further rectal bleed, patient will be discharged home today with close follow-up with his PCP within 3 days and with gastroenterology within 1 week. Patient verbalized understanding of the plan. This complex discharge took about 35 minutes to complete. Pertinent Studies: KUB Plan - Discharge Summary Discharge Rx Participant: No New Discharge Prescriptions: New Hydrocortisone Suppository [Anusol-Hc] 25 mg RECTAL DAILY #30 supp Polyethylene Glycol 3350 [Miralax] 17 gm PO HS #30 powd.pack Hydrocortisone Pr Cream [Proctosol-Hc 2.5%] 1 applic RECTAL BID applic Witch Rich [Tucks Medicated Pads] 1 each TOPICAL QID PRN med..pad PRN Reason: Hemorrhoids Continue Tamsulosin HCl [Flomax] 0.4 mg PO BID Finasteride [Proscar] 5 mg PO DAILY Lovastatin [Mevacor] 40 mg PO HS Ranitidine HCl [Zantac] 300 mg PO BID amLODIPine BESYLATE/BENAZEPRIL [Lotrel 5-20 MG] 1 cap PO BID Discharge Medication List Tamsulosin HCl [Flomax] 0.4 mg PO BID 11/25/14 [History] Finasteride [Proscar] 5 mg PO DAILY 11/11/15 [History] Lovastatin [Mevacor] 40 mg PO HS 11/11/15 [History] Ranitidine HCl [Zantac] 300 mg PO BID 11/11/15 [History] amLODIPine BESYLATE/BENAZEPRIL [Lotrel 5-20 MG] 1 cap PO BID 11/11/15 [History] Hydrocortisone Pr Cream [Proctosol-Hc 2.5%] 1 applic RECTAL BID applic 11/10/19 [Rx] Hydrocortisone Suppository [Anusol-Hc] 25 mg RECTAL DAILY #30 supp 11/10/19 [Rx] Polyethylene Glycol 3350 [Miralax] 17 gm PO HS #30 powd.pack 11/10/19 [Rx] Witch Rich [Tucks Medicated Pads] 1 each TOPICAL QID PRN med..pad 11/10/19 [Rx] Follow up Appointment(s)/Referral(s): Hugh Walter MD [Primary Care Provider] - 1-2 days Antwan Porras MD [STAFF PHYSICIAN] - 1 Week Activity/Diet/Wound Care/Special Instructions: Diet: Low fiber Follow-up PCP within 3 days of discharge. Follow-up with GI within 1 week of discharge. Take all medications as advised. Come back to the ED for large amounts of rectal bleed, chest pain, dizziness, shortness of breath or palpitations. Discharge Disposition: HOME SELF-CARE
== END 2019-11-10 14:47 | disposition home or self-care (01) | DRG 395 ==
LOC: EC 07:24 → 4SSUR 10:08 → OBSVTOIN 11:17
PROVIDERS: ADMIT Internal Medicine; ATTEND Internal Medicine
DX: K64.8 Other hemorrhoids (principal); E78.5 Hyperlipidemia, unspecified; I10 Essential (primary) hypertension; K59.00 Constipation, unspecified; N40.0 Benign prostatic hyperplasia without lower urinary tract symptoms; Z79.82 Long term (current) use of aspirin; Z79.899 Other long term (current) drug therapy; Z82.49 Family history of ischemic heart disease and other diseases of the circulatory system; Z85.828 Personal history of other malignant neoplasm of skin
CPT/HCPCS: 36415; 74018; 80048; 80053; 82272; 85025; 85610; 85730; 96374; 99284

== ENCOUNTER → 2023-06-01 | Outpatient (CLI) | payer MEDICARE ==
[2023-06-01 14:53] LABS: African American GFR (CKD) 86 (>60 ml/min/1.73 sqM); Blood Urea Nitrogen 17 mg/dL (9-20); Non-African American GFR(CKD) 75 (>60 ml/min/1.73 sqM)
--- NOTE | 2023-06-02 07:31 | CT ---
EXAMINATION TYPE: CT urogram wo/w con CT DLP: 5132.90 mGycm, Automated exposure control for dose reduction was used. DATE OF EXAM: 06/01/2023 4:06 PM COMPARISON: None CLINICAL INDICATION:Male, 88 years old with history of R31.0 GROSS HEMATURIA; PHH, UTI, gross hematur ia TECHNIQUE: Urogram of the abdomen and pelvis was performed before and after the administration of 100 cc of IV c ontrast Isovue 300 contrast. Delayed imaging was performed. Coronal and sagittal reformats were perfo rmed. One or more CT dose reduction strategies were utilized during this examination. 2D and 3D recon structions are performed to assist visualization of the urinary tract on a separate workstation. FINDINGS: GENITOURINARY: RIGHT KIDNEY AND URETER: No calculi. No hydronephrosis or hydroureter. No renal mass or other lesions . No urothelial lesions: no filling defect, dilation, stricture or wall thickening. LEFT KIDNEY AND URETER: No calculi. No hydronephrosis or hydroureter. No solid enhancing mass. Exophy tic left mid kidney 1.4 cm cyst. No urothelial lesions: no filling defect, dilation, stricture or wal l thickening. URINARY BLADDER: Not optimally distended. No evidence of calculi. No gross evidence of mass or other lesions. REPRODUCTIVE: Markedly enlarged prostate gland measuring 8.1 x 7.9 cm. Coarse calcifications identifi ed. This indents upon the urinary bladder base. ABDOMEN LIVER: . GALLBLADDER AND BILE DUCTS: Unremarkable PANCREAS: Unremarkable. SPLEEN: Unremarkable. ADRENAL GLANDS: Unremarkable. STOMACH AND BOWEL: Distal colonic diverticulosis without evidence for acute diverticulitis.. No evide nce of bowel obstruction. PERITONEUM: No evidence of pneumoperitoneum, free fluid, or adenopathy. VASCULATURE: Atherosclerotic calcifications are present throughout the abdominal aorta and its branch es. No abdominal aortic aneurysm. MUSCULOSKELETAL: No acute osseous abnormalities. Moderate multilevel degenerative changes of the thor acolumbar spine. Remote anterior wedge compression deformity of the L1 vertebral body with approximat tesha 50% height loss and no retropulsion. There are 6 lumbar type vertebral bodies identified. SOFT TISSUE/ABDOMINAL WALL: Fat filled bilateral inguinal hernias. 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 Bilate ral gynecomastia. Left basilar subsegmental atelectasis. Moderate coronary artery calcifications. Dil ated main pulmonary measuring up to 3.8 cm. IMPRESSION: 1. No evidence of urolithiasis or concerning renal/urothelial neoplasm. 2. Markedly enlarged prostate gland with indentation upon the urinary bladder base. Correlate with PS A values. 3. 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 4. Colonic diverticulosis without evidence for acute diverticulitis. 5. Chronic appearing anterior wedge compression deformity the L1 vertebral body. Correlate with point tenderness. 6. Dilated main pulmonary artery which can be seen in the setting of pulmonary arterial hypertension. 7. Fat filled bilateral inguinal hernias.
== END | disposition home or self-care (01) ==
LOC: RADCTMAIN 13:49
PROVIDERS: ATTEND Urology
DX: N39.0 Urinary tract infection, site not specified (principal); K57.30 Diverticulosis of large intestine without perforation or abscess without bleeding; M48.56XA Collapsed vertebra, not elsewhere classified, lumbar region, initial encounter for fracture; N40.2 Nodular prostate without lower urinary tract symptoms; K40.20 Bilateral inguinal hernia, without obstruction or gangrene, not specified as recurrent; R31.0 Gross hematuria
CPT/HCPCS: 82565; 84520; 74178; 36415; 74400; Q9967

== ENCOUNTER 2023-11-09 13:08 | Inpatient (IN) | payer MEDICARE ==
[2023-11-09] MEDS: ACETAMINOPHEN TAB 500 MG TAB PO STA (13:38)
[2023-11-09] MEDS: IBUPROFEN 600 MG TAB PO STA (13:39)
[2023-11-09 13:40] LABS: HCT 45.4 % (39.0-53.0); HGB 14.8 gm/dL (13.0-17.5); MCH 32.2 pg (25.0-35.0); MCHC 32.7 g/dL (31.0-37.0); MCV 98.5 fL (80.0-100.0); Mean Platelet Volume 7.4; RBC 4.61 m/uL (4.30-5.90); RDW 13.4 % (11.5-15.5); WBC 3.8 k/uL (3.8-10.6)
--- NOTE | 2023-11-09 13:51 | ED ---
General Adult HPI - General Chief complaint: Arrhythmia/Palpitations Stated complaint: AFIB Time Seen by Provider: 11/09/23 13:15 Source: patient, EMS, RN notes reviewed, old records reviewed Mode of arrival: EMS Limitations: no limitations - History of Present Illness Initial comments: This is an 88-year-old male who presents to the emergency department because he was having difficulty breathing and felt his heart racing. When EMS arrived his heart rate was 145 and they gave the patient 20 of Cardizem. On arrival patient's heart rate was about 90 beats a minute. Patient states he still feels short of breath in the emergency department. Patient denies any fever chills or cough. Patient denies any chest pain. Patient has no abdominal pain patient has no nausea vomiting diarrhea. Patient denies any headache patient denies numbness or weakness - Related Data Home Medications Medication Instructions Recorded Confirmed Tamsulosin HCl [Flomax] 0.4 mg PO BID 11/25/14 11/09/23 Finasteride [Proscar] 5 mg PO DAILY 11/11/15 11/09/23 Lovastatin [Mevacor] 40 mg PO HS 11/11/15 11/09/23 amLODIPine BESYLATE/BENAZEPRIL 1 cap PO BID 11/11/15 11/09/23 [Lotrel 5-20 MG] Apixaban [Eliquis] 2.5 mg PO BID 11/09/23 11/09/23 Aspirin EC [Ecotrin Low Dose] 81 mg PO DAILY 11/09/23 11/09/23 Calcium 1000mg 1,000 mg PO DAILY 11/09/23 11/09/23 Cholecalciferol [Vitamin D3 (25 25 mcg PO DAILY 11/09/23 11/09/23 Mcg = 1000 Iu)] Famotidine [Pepcid] 40 mg PO BID 11/09/23 11/09/23 Hydrocortisone Cream 1 applic TOPICAL BID PRN 11/09/23 11/09/23 [Hydrocortisone 2.5% Cream] Ibandronate Sodium [Boniva] 150 mg PO Q30D 11/09/23 11/09/23 Msm(Unknown Dose) 1 tab PO DAILY 11/09/23 11/09/23 Multivitamins, Thera [Multivitamin 1 tab PO DAILY 11/09/23 11/09/23 (formulary)] Vitamin C(Unknown Dose) 1 tab PO DAILY 11/09/23 11/09/23 polyethylene glycoL 3350 [Miralax] 17 gm PO DAILY 11/09/23 11/09/23 Allergies Allergy/AdvReac Type Severity Reaction Status Date / Time No Known Allergies Allergy Verified 11/09/23 16:26 Review of Systems ROS Statement: Those systems with pertinent positive or pertinent negative responses have been documented in the HPI. ROS Other: All systems not noted in ROS Statement are negative. Past Medical History Past Medical History: Atrial Fibrillation, Hypertension, Prostate Disorder History of Any Multi-Drug Resistant Organisms: None Reported Past Surgical History: Appendectomy Additional Past Surgical History / Comment(s): L sided basal cell carcinoma removed from L ear, Past Psychological History: No Psychological Hx Reported Past Alcohol Use History: Daily Past Drug Use History: None Reported - Past Family History Mother Family Medical History: CVA/TIA Father Family Medical History: Myocardial Infarction ([place]) General Exam - General Exam Comments Initial Comments: GENERAL: Patient is well-developed and well-nourished. Patient is nontoxic and well- hydrated and is in mild distress. Patient's O2 sat is 67% on room air ENT: Neck is soft and supple. No significant lymphadenopathy is noted. Oropharynx is clear. Moist mucous membranes. Neck has full range of motion without eliciting any pain. EYES: The sclera were anicteric and conjunctiva were pink and moist. Extraocular movements were intact and pupils were equal round and reactive to light. Eyelids were unremarkable. PULMONARY: Unlabored respirations. Good breath sounds bilaterally. No audible rales rhonchi or wheezing was noted. CARDIOVASCULAR: Patient has an irregular heart rate at that rate of about 90 ABDOMEN: Soft and nontender with normal bowel sounds. SKIN: Skin is clear with no lesions or rashes and otherwise unremarkable. NEUROLOGIC: Patient is alert and oriented x3. Cranial nerves II through XII are grossly intact. Motor and sensory are also intact. Normal speech, volume and content. Symmetrical smile. MUSCULOSKELETAL: Normal extremities with adequate strength and full range of motion. 1+ edema bilaterally LYMPHATICS: No significant lymphadenopathy is noted PSYCHIATRIC: Normal psychiatric evaluation. Limitations: no limitations Course Vital Signs 11/09/23 11/09/23 11/09/23 13:15 13:20 13:30 Temperature 100.7 F H Pulse Rate 102 H Pulse Rate [ 105 H Powerhouse Tender ] Respiratory 17 Rate Blood Pressure 109/59 112/57 O2 Sat by Pulse 83 L Oximetry Fraction of Inspired Oxygen (FIO2) 11/09/23 11/09/23 11/09/23 13:45 14:00 14:01 Temperature Pulse Rate 97 101 H 96 Pulse Rate [ Powerhouse Tender ] Respiratory 17 19 Rate Blood Pressure 116/63 O2 Sat by Pulse 90 L 91 L Oximetry Fraction of Inspired Oxygen (FIO2) 11/09/23 11/09/23 11/09/23 14:16 15:30 15:45 Temperature Pulse Rate 92 89 89 Pulse Rate [ Powerhouse Tender ] Respiratory 16 15 Rate Blood Pressure 101/60 102/63 O2 Sat by Pulse 94 L 91 L Oximetry Fraction of Inspired Oxygen (FIO2) 11/09/23 11/09/23 11/09/23 16:00 17:32 17:38 Temperature Pulse Rate 90 Pulse Rate [ Powerhouse Tender ] Respiratory 16 Rate Blood Pressure 99/67 O2 Sat by Pulse 91 L Oximetry Fraction of 100 100 Inspired Oxygen (FIO2) Medical Decision Making - Medical Decision Making EKG shows atrial flutter at 88 bpm QRS is 142 QT interval 386 QTc is 432. Patient's EKG shows no ST segment ovation or depression patient has a right bundle branch block Was pt. sent in by a medical professional or institution (, [facility], TELECOMMUNICATIONS MANAGER, urgent care, hospital, or skilled nursing...) When possible be specific @ -No Did you speak to anyone other than the patient for history (EMS, parent, family, police, friend...)? What history was obtained from this source @ -EMS gave most of the history Did you review nursing and triage notes (agree or disagree)? Why? @ -I reviewed and agree with nursing and triage notes Were old charts reviewed (outside hosp., previous admission, EMS record, old EKG, old radiological studies, urgent care reports/EKG's, skilled nursing records)? Report findings @ -I reviewed old charts and old lab work on this patient Differential Diagnosis (chest pain, altered mental status, abdominal pain women, abdominal pain men, vaginal bleeding, weakness, fever, dyspnea, syncope, headache, dizziness, GI bleed, back pain, seizure, CVA, palpatations, mental health, musculoskeletal)? @ -Differential Palpitations Ventricular arrhythmias, atrial arrhythmias, myocardial infarction, anemia, thyrotoxicosis, electrolyte imbalance, hypokalemia, pulmonary embolism, pulmonary disease, drugs, alcohol, anxiety, stress.... This is not meant to be an all-inclusive list. EKG interpreted by me (3pts min.). @ -As above X-rays interpreted by me (1pt min.). @ -Chest x-ray shows a hiatal hernia and some mild pulmonary edema CT interpreted by me (1pt min.). @ -CT scan of the chest shows no obvious PEs. U/S interpreted by me (1pt. min.). @ -None done What testing was considered but not performed or refused? (CT, X-rays, U/S, labs)? Why? @ -None What meds were considered but not given or refused? Why? @ -None Did you discuss the management of the patient with other professionals (professionals i.e. , PA, TELECOMMUNICATIONS MANAGER, lab, RT, psych nurse, sr. social media & mobile manager, technical applications scientist, teacher, front desk officer, pillowcase cutter)? Give summary @ -I spoke with [facility] they agreed admit the patient admit the patient wrote admitting orders Was smoking cessation discussed for >3mins.? @ -No Was critical care preformed (if so, how long)? @ -No Were there social determinants of health that impacted care today? How? (Homelessness, low income, unemployed, alcoholism, drug addiction, transportation, low edu. Level, literacy, decrease access to med. care, fpc, rehab)? @ -No Was there de-escalation of care discussed even if they declined (Discuss DNR or withdrawal of care, Hospice)? DNR status @ -No What co-morbidities impacted this encounter? (DM, HTN, Smoking, COPD, CAD, Cancer, CVA, ARF, Chemo, Hep., AIDS, mental health diagnosis, sleep apnea, morbid obesity)? @ -None Was patient admitted / discharged? Hospital course, mention meds given and route, prescriptions, significant lab abnormalities, going to OR and other pertinent info. @ -Patient's pulse ox was low when he arrived at 67% we placed the patient on 8 L and he got up to 93 so I put the patient on BiPAP. Patient also had a urinary tract infection so I started the patient on antibiotics when I noticed the urinary tract infection at 5:25 PM patient will be admitted to [facility]. I consulted pulmonary Undiagnosed new problem with uncertain prognosis? @ -No Drug Therapy requiring intensive monitoring for toxicity (Heparin, Nitro, Insulin, Cardizem)? @ -No Were any procedures done? @ -No Diagnosis/symptom? @ -Urinary tract infection Acute, or Chronic, or Acute on Chronic? @ -Acute Uncomplicated (without systemic symptoms) or Complicated (systemic symptoms)? @ -Complicated Side effects of treatment? @ -No Exacerbation, Progression, or Severe Exacerbation? @ -No Poses a threat to life or bodily function? How? (Chest pain, [place], [place], pneumonia, PE, COPD, DKA, ARF, appy, cholecystitis, CVA, Diverticulitis, Homicidal, Suicidal, threat to staff... and all critical care pts) @ -No Diagnosis/symptom? @ -Pulmonary edema Acute, or Chronic, or Acute on Chronic? @ -Acute Uncomplicated (without systemic symptoms) or Complicated (systemic symptoms)? @ -Complicated Side effects of treatment? @ -None Exacerbation, Progression, or Severe Exacerbation] @ -No Poses a threat to life or bodily function? @ -Yes this can lead to hypoxia and endorgan dysfunction - Lab Data Result diagrams: 11/09/23 13:23 11/09/23 13:23 Lab Results 11/09/23 11/09/23 11/09/23 Range/Units 13:23 13:23 13:23 WBC 3.8 (3.8-10.6) k/uL RBC 4.61 (4.30-5.90) m/uL Hgb 14.8 (13.0-17.5) gm/dL Hct 45.4 (39.0-53.0) % MCV 98.5 (80.0-100.0) fL MCH 32.2 (25.0-35.0) pg MCHC 32.7 (31.0-37.0) g/dL RDW 13.4 (11.5-15.5) % Plt Count 94 L (150-450) k/uL MPV 7.4 Neutrophils % (Manual) 87 % Band Neuts % (Manual) 10 % Lymphocytes % (Manual) 4 % Monocytes % (Manual) 1 % Other Cells % % Neutrophils # (Manual) 3.60 (1.3-7.7) k/uL Lymphocytes # (Manual) 0.15 L (1.0-4.8) k/uL Monocytes # (Manual) 0.04 (0-1.0) k/uL Nucleated RBCs 0 (0-0) /100 WBC Differential Comment PT 12.2 (10.0-12.5) sec INR 1.1 (<1.2) APTT 21.8 L (22.0-30.0) sec Sample Site ABG pH (7.35-7.45) ABG pCO2 (35-45) mmHg ABG pO2 (83-108) mmHg ABG HCO3 (21-25) mmol/L ABG O2 Saturation (94-97) % ABG Base Excess mmol/L Greg Test FiO2 % Sodium 137 (137-145) mmol/L Potassium 3.7 (3.5-5.1) mmol/L Chloride 106 (98-107) mmol/L Carbon Dioxide 25 (22-30) mmol/L Anion Gap 6 mmol/L BUN 18 (9-20) mg/dL Creatinine 0.93 (0.66-1.25) mg/dL Est GFR (CKD-EPI)AfAm 84 (>60 ml/min/1.73 sqM) Est GFR (CKD-EPI)NonAf 73 (>60 ml/min/1.73 sqM) Glucose 95 (74-99) mg/dL Plasma Lactic Acid Brijesh (0.7-2.0) mmol/L Calcium 7.8 L (8.4-10.2) mg/dL Total Bilirubin 0.9 (0.2-1.3) mg/dL AST 23 (17-59) U/L ALT 15 (4-49) U/L Alkaline Phosphatase 60 (38-126) U/L Troponin I (0.000-0.034) ng/mL NT-Pro-B Natriuret Pep 541 pg/mL Total Protein 5.4 L (6.3-8.2) g/dL Albumin 3.0 L (3.5-5.0) g/dL Urine Color Urine Appearance (Clear) Urine pH (5.0-8.0) Ur Specific Sandoval (1.001-1.035) Urine Protein (Negative) Urine Glucose (UA) (Negative) Urine Ketones (Negative) Urine Blood (Negative) Urine Nitrite (Negative) Urine Bilirubin (Negative) Urine Urobilinogen (<2.0) mg/dL Ur Leukocyte Esterase (Negative) Urine RBC (0-5) /hpf Urine WBC (0-5) /hpf Ur Squamous Epith Cells (0-4) /hpf Urine Bacteria (None) /hpf Urine Mucus (None) /hpf Influenza Type A (PCR) (Not Detectd) Influenza Type B (PCR) (Not Detectd) RSV (PCR) (Not Detectd) SARS-CoV-2 (PCR) (Not Detectd) 11/09/23 11/09/23 11/09/23 Range/Units 13:23 13:23 13:28 WBC (3.8-10.6) k/uL RBC (4.30-5.90) m/uL Hgb (13.0-17.5) gm/dL Hct (39.0-53.0) % MCV (80.0-100.0) fL MCH (25.0-35.0) pg MCHC (31.0-37.0) g/dL RDW (11.5-15.5) % Plt Count (150-450) k/uL MPV Neutrophils % (Manual) % Band Neuts % (Manual) % Lymphocytes % (Manual) % Monocytes % (Manual) % Other Cells % % Neutrophils # (Manual) (1.3-7.7) k/uL Lymphocytes # (Manual) (1.0-4.8) k/uL Monocytes # (Manual) (0-1.0) k/uL Nucleated RBCs (0-0) /100 WBC Differential Comment PT (10.0-12.5) sec INR (<1.2) APTT (22.0-30.0) sec Sample Site ABG pH (7.35-7.45) ABG pCO2 (35-45) mmHg ABG pO2 (83-108) mmHg ABG HCO3 (21-25) mmol/L ABG O2 Saturation (94-97) % ABG Base Excess mmol/L Greg Test FiO2 % Sodium (137-145) mmol/L Potassium (3.5-5.1) mmol/L Chloride (98-107) mmol/L Carbon Dioxide (22-30) mmol/L Anion Gap mmol/L BUN (9-20) mg/dL Creatinine (0.66-1.25) mg/dL Est GFR (CKD-EPI)AfAm (>60 ml/min/1.73 sqM) Est GFR (CKD-EPI)NonAf (>60 ml/min/1.73 sqM) Glucose (74-99) mg/dL Plasma Lactic Acid Brijesh 1.3 (0.7-2.0) mmol/L Calcium (8.4-10.2) mg/dL Total Bilirubin (0.2-1.3) mg/dL AST (17-59) U/L ALT (4-49) U/L Alkaline Phosphatase (38-126) U/L Troponin I <0.012 (0.000-0.034) ng/mL NT-Pro-B Natriuret Pep pg/mL Total Protein (6.3-8.2) g/dL Albumin (3.5-5.0) g/dL Urine Color Urine Appearance (Clear) Urine pH (5.0-8.0) Ur Specific Sandoval (1.001-1.035) Urine Protein (Negative) Urine Glucose (UA) (Negative) Urine Ketones (Negative) Urine Blood (Negative) Urine Nitrite (Negative) Urine Bilirubin (Negative) Urine Urobilinogen (<2.0) mg/dL Ur Leukocyte Esterase (Negative) Urine RBC (0-5) /hpf Urine WBC (0-5) /hpf Ur Squamous Epith Cells (0-4) /hpf Urine Bacteria (None) /hpf Urine Mucus (None) /hpf Influenza Type A (PCR) Not Detected (Not Detectd) Influenza Type B (PCR) Not Detected (Not Detectd) RSV (PCR) Not Detected (Not Detectd) SARS-CoV-2 (PCR) Not Detected (Not Detectd) 11/09/23 11/09/23 Range/Units 13:28 14:08 WBC (3.8-10.6) k/uL RBC (4.30-5.90) m/uL Hgb (13.0-17.5) gm/dL Hct (39.0-53.0) % MCV (80.0-100.0) fL MCH (25.0-35.0) pg MCHC (31.0-37.0) g/dL RDW (11.5-15.5) % Plt Count (150-450) k/uL MPV Neutrophils % (Manual) % Band Neuts % (Manual) % Lymphocytes % (Manual) % Monocytes % (Manual) % Other Cells % % Neutrophils # (Manual) (1.3-7.7) k/uL Lymphocytes # (Manual) (1.0-4.8) k/uL Monocytes # (Manual) (0-1.0) k/uL Nucleated RBCs (0-0) /100 WBC Differential Comment PT (10.0-12.5) sec INR (<1.2) APTT (22.0-30.0) sec Sample Site Right Radial ABG pH 7.35 (7.35-7.45) ABG pCO2 52 H (35-45) mmHg ABG pO2 68 L (83-108) mmHg ABG HCO3 29 H (21-25) mmol/L ABG O2 Saturation 93.0 L (94-97) % ABG Base Excess 1.9 mmol/L Greg Test Yes FiO2 44 % Sodium (137-145) mmol/L Potassium (3.5-5.1) mmol/L Chloride (98-107) mmol/L Carbon Dioxide (22-30) mmol/L Anion Gap mmol/L BUN (9-20) mg/dL Creatinine (0.66-1.25) mg/dL Est GFR (CKD-EPI)AfAm (>60 ml/min/1.73 sqM) Est GFR (CKD-EPI)NonAf (>60 ml/min/1.73 sqM) Glucose (74-99) mg/dL Plasma Lactic Acid Brijesh (0.7-2.0) mmol/L Calcium (8.4-10.2) mg/dL Total Bilirubin (0.2-1.3) mg/dL AST (17-59) U/L ALT (4-49) U/L Alkaline Phosphatase (38-126) U/L Troponin I (0.000-0.034) ng/mL NT-Pro-B Natriuret Pep pg/mL Total Protein (6.3-8.2) g/dL Albumin (3.5-5.0) g/dL Urine Color Light Yellow Urine Appearance Cloudy (Clear) Urine pH 6.5 (5.0-8.0) Ur Specific Sand[place] 1.020 (1.001-1.035) Urine Protein Negative (Negative) Urine Glucose (UA) Negative (Negative) Urine Ketones Negative (Negative) Urine Blood Moderate H (Negative) Urine Nitrite Positive (Negative) Urine Bilirubin Negative (Negative) Urine Urobilinogen <2.0 (<2.0) mg/dL Ur Leukocyte Esterase Moderate H (Negative) Urine RBC >182 H (0-5) /hpf Urine WBC 16 H (0-5) /hpf Ur Squamous Epith Cells <1 (0-4) /hpf Urine Bacteria Rare H (None) /hpf Urine Mucus Rare H (None) /hpf Influenza Type A (PCR) (Not Detectd) Influenza Type B (PCR) (Not Detectd) RSV (PCR) (Not Detectd) SARS-CoV-2 (PCR) (Not Detectd) Critical Care Time Critical Care Time: Yes Total Critical Care Time: 35 Disposition Clinical Impression: Urinary tract infection, Pulmonary edema Disposition: ADMITTED IP TO THIS HOSP Referrals: Hugh Walter MD [Primary Care Provider] - 1-2 days Time of Disposition: 17:41
[2023-11-09 13:55] LABS: ALT 15 U/L (4-49); AST 23 U/L (17-59); African American GFR (CKD) 84 (>60 ml/min/1.73 sqM); Alkaline Phosphatase 60 U/L (38-126); Anion Gap 6 mmol/L; Blood Urea Nitrogen 18 mg/dL (9-20); Calcium 7.8 mg/dL (8.4-10.2); Carbon Dioxide 25 mmol/L (22-30); Chloride 106 mmol/L (98-107); Glucose 95 mg/dL (74-99); Non-African American GFR(CKD) 73 (>60 ml/min/1.73 sqM); Potassium 3.7 mmol/L (3.5-5.1); Sodium 137 mmol/L (137-145); Total Bilirubin 0.9 mg/dL (0.2-1.3); Total Protein 5.4 g/dL (6.3-8.2)
[2023-11-09] MEDS: IPRATROPIUM-ALBUTEROL 3 ML NEB INHALATION STA (14:01)
[2023-11-09 14:03] LABS: NT-Pro-B-Type Natriuretic Pept 541 pg/mL
[2023-11-09 14:10] LABS: INR 1.1 (<1.2); Prothrombin Time 12.2 sec (10.0-12.5)
[2023-11-09 14:12] LABS: Platelet Count 94 k/uL (150-450)
[2023-11-09 14:12] LABS: ABG Base Excess 1.9 mmol/L; ABG HCO3 29 mmol/L (21-25); ABG PCO2 52 mmHg (35-45); ABG PH 7.35 (7.35-7.45); ABG PO2 68 mmHg (83-108); Allen Test Performed? Yes
[2023-11-09 14:16] LABS: Band Neutrophils % 10 %; Lymphocytes # (M) 0.15 k/uL (1.0-4.8); Monocytes # (M) 0.04 k/uL (0-1.0); Neutrophils % (M) 87 %; Nucleated Red Blood Cells 0 /100 WBC (0-0); Total Cells Counted 200
[2023-11-09 14:24] LABS: Partial Thromboplastin Time 21.8 sec (22.0-30.0)
[2023-11-09 15:59] LABS: Appearance,Urine Cloudy (Clear); Bacteria,Urine Rare /hpf; Bilirubin,Urine Negative (Negative); Blood,Urine Moderate (Negative); Color,Urine Light Yellow; Glucose,Urine (UA) Negative (Negative); Ketones,Urine Negative (Negative); Leukocyte Esterase,Urine Moderate (Negative); Mucus,Urine Rare /hpf; Nitrite,Urine Positive (Negative); PH, Urine 6.5 (5.0-8.0); Protein,Urine Negative (Negative); RBC,Urine >182 /hpf (0-5); Squamous Epithelial Cell,Urine <1 /hpf (0-4); Urobilinogen,Urine <2.0 mg/dL (<2.0); WBC,Urine 16 /hpf (0-5)
--- NOTE | 2023-11-09 16:12 | XR ---
EXAMINATION TYPE: XR chest 2V DATE OF EXAM: 11/09/2023 COMPARISON: None TECHNIQUE: PA and lateral views submitted. HISTORY: Fever FINDINGS: Elevated left hemidiaphragm with bibasilar subsegmental consolidation. The heart is enlarged. Coarsen ed interstitium with no pneumothorax. Arthropathy of the shoulders and degenerative change of the spi ne. IMPRESSION: 1. Elevated hemidiaphragm on the left with bilateral lower lobe infiltrate. Correlate for pneumonia..
--- NOTE | 2023-11-09 16:17 | CT ---
EXAMINATION TYPE: CT chest angio for PE CT DLP: 636.2 mGycm, Automated exposure control for dose reduction was used. DATE OF EXAM: 11/09/2023 3:24 PM COMPARISON: Chest radiograph from same day. CLINICAL INDICATION:Male, 88 years old with history of short of breath; Shortness of breath TECHNIQUE/CONTRAST: CTA scan of the thorax is performed with IV Contrast, patient injected with 100 mL of Isovue 370, MIP images are created and reviewed these are created on a separate workstation.. FINDINGS: Pulmonary Artery: There is no evidence for a filling defect within the pulmonary vasculature to sugge st acute pulmonary embolism. The pulmonary artery is of normal size. Lungs/Pleura: No evidence of focal consolidation, pleural effusion or pneumothorax. Consolidation joaquim nges in lung bases felt to be invasive expiratory exam. Airway: Large airways are patent. Heart: Mild cardiomegaly with coronary artery atherosclerosis. Vasculature: No evidence of aortic aneurysm. Mediastinum: No gross evidence of adenopathy. Musculoskeletal: No acute osseous abnormalities Soft Tissues: Unremarkable. Lower neck: No significant findings. Upper Abdomen: No significant findings. IMPRESSION: 1. No evidence of pulmonary embolism. 2. Large hiatal hernia containing the stomach taking a majority of the left lung.. 3. Low lung volumes with basilar atelectasis. 4. Mild cardiomegaly with mild coronary artery atherosclerosis.
[2023-11-09] MEDS: cefTRIAXone IN SWFI 1,000 MG/10 ML SYRINGE IVP STA (17:36)
[2023-11-09] MEDS: SODIUM CHLORIDE 0.9% 500 ML 500 ML IV ONE (17:37)
[2023-11-09 18:02] LABS: ABG Base Excess 1.5 mmol/L; ABG HCO3 29 mmol/L (21-25); ABG Oxygen Saturation 95.4 % (94-97); ABG PCO2 56 mmHg (35-45); ABG PH 7.32 (7.35-7.45); ABG PO2 80 mmHg (83-108); Allen Test Performed? Yes
[2023-11-09] MEDS: DEXTROSE 5% IN WATER 100 ML with AMIODARONE 150 MG IV ONE (20:00)
[2023-11-09] MEDS: AMIODARONE 360 MG in DEXTROSE 5% IN WATER 200 ML IV ONE (20:00)
[2023-11-09 21:41] LABS: ABG TCO2 31 mmol/L (19-24)
[2023-11-09] MEDS: TAMSULOSIN 0.4 MG CAP.ER.24H PO SCH (22:15)
[2023-11-09] MEDS: APIXABAN 2.5 MG TABLET PO SCH (22:15)
[2023-11-09] MEDS: FAMOTIDINE 20 MG TAB PO SCH (22:15)
[2023-11-09] MEDS: FUROSEMIDE 10 MG/ML 2 ML VIAL IV SCH (22:15)
--- NOTE | 2023-11-10 02:34 | P.HPIM ---
History of Present Illness H&P Date: 11/09/23 Chief Complaint: Shortness of breath 88-year-old male with A-fib on Eliquis, patient is not on any home oxygen Patient unable to provide meaningful history at this time due to being BiPAP dependent. History was obtained by talking to the family at bedside. Patient lives with his grandson he has been in good health up until today. Over the weekend he went to the [facility] and yesterday he was totally at his baseline per family report. Today the patient made a phone call to his family describing that he is having trouble breathing and having a panic attack. Family went home to check up on him found him shaky and anxious. No reports of fevers chills chest pain nausea vomiting cough sore throat body aches. Patient has a pulse oximeter which was placed on him and showed a heart rate of 1 30-1 50, with oxygen saturation dropping into 87% for which family got alarmed and decided to bring him to the hospital for evaluation patient was only describing a sense of anxiety and panic without any other complaints. Patient is known to have A-fib he was planned to have an ablation next week Patient denies any history of COPD or diabetes denies any recent travel or h ospital stay denies any history of blood clots No report of falling patient ambulates using a walker review of systems Pertinent positives as noted in HPI. All other systems were reviewed and are ne gative on exam Constitutional: BiPAP dependent limited history Eyes: Anicteric sclerae, moist conjunctiva, Pupils equal round reactive to light ENMT: NC/AT Oropharynx clear, no erythema, or exudates Neck: Supple, no masses, or JVD No carotid bruits No thyromegaly Lungs: Decreased breath sounds over the left mid and lower lung Clear to percussion Normal respiratory effort, no accessory muscle use Cardiovascular: Heart irregular No murmurs, gallops, or rubs Trace leg edema on the left side Abdominal: Soft Nontender, no guarding, rebound or rigidity Abdomen moving with respiration Normoactive bowel sounds No hepatomegaly, No splenomegaly Extremities: No digital cyanosis No clubbing Pedal pulses intact and symmetrical Radial pulses intact and symmetrical No calf tenderness Psychiatric: Alert and oriented to person, place Neuro Muscles Strength 4/5 in all 4 extremities Sensation to light touch grossly present throughout Cranial nerves II-XII grossly intact Past Medical History Past Medical History: Atrial Fibrillation, Hypertension, Prostate Disorder History of Any Multi-Drug Resistant Organisms: None Reported Past Surgical History: Appendectomy Additional Past Surgical History / Comment(s): L sided basal cell carcinoma removed from L ear, Smoking Status: Never smoker - Past Family History Mother Family Medical History: CVA/TIA Father Family Medical History: Myocardial Infarction ([place]) Medications and Allergies Home Medications Medication Instructions Recorded Confirmed Type Tamsulosin HCl [Flomax] 0.4 mg PO BID 11/25/14 11/09/23 History Finasteride [Proscar] 5 mg PO DAILY 11/11/15 11/09/23 History Lovastatin [Mevacor] 40 mg PO HS 11/11/15 11/09/23 History amLODIPine BESYLATE/BENAZEPRIL 1 cap PO BID 11/11/15 11/09/23 History [Lotrel 5-20 MG] Apixaban [Eliquis] 2.5 mg PO BID 11/09/23 11/09/23 History Aspirin EC [Ecotrin Low Dose] 81 mg PO DAILY 11/09/23 11/09/23 History Calcium 1000mg 1,000 mg PO DAILY 11/09/23 11/09/23 History Cholecalciferol [Vitamin D3 (25 25 mcg PO DAILY 11/09/23 11/09/23 History Mcg = 1000 Iu)] Famotidine [Pepcid] 40 mg PO BID 11/09/23 11/09/23 History Hydrocortisone Cream 1 applic TOPICAL BID PRN 11/09/23 11/09/23 History [Hydrocortisone 2.5% Cream] Ibandronate Sodium [Boniva] 150 mg PO Q30D 11/09/23 11/09/23 History Msm(Unknown Dose) 1 tab PO DAILY 11/09/23 11/09/23 History Multivitamins, Thera [Multivitamin 1 tab PO DAILY 11/09/23 11/09/23 History (formulary)] Vitamin C(Unknown Dose) 1 tab PO DAILY 11/09/23 11/09/23 History polyethylene glycoL 3350 [Miralax] 17 gm PO DAILY 11/09/23 11/09/23 History Allergies Allergy/AdvReac Type Severity Reaction Status Date / Time No Known Allergies Allergy Verified 11/09/23 16:26 Physical Exam Vitals: Vital Signs Temp Pulse Pulse Resp BP BP Pulse Ox 11/10/23 00:38 98.9 F 95 22 112/60 99 11/09/23 23:20 11/09/23 22:30 64 15 91/67 98 11/09/23 22:00 70 19 97/64 98 11/09/23 21:30 70 13 100/63 98 11/09/23 21:00 73 14 101/70 98 11/09/23 20:30 79 15 96/63 98 11/09/23 20:00 78 13 97/72 98 11/09/23 19:34 11/09/23 19:30 80 17 109/67 97 11/09/23 19:06 161 H 16 100/68 98 11/09/23 18:30 82 94/66 97 11/09/23 18:00 79 85/58 96 11/09/23 17:38 11/09/23 17:32 11/09/23 17:30 92 94/61 93 L 11/09/23 17:00 92 93/61 91 L 11/09/23 16:30 89 73/37 91 L 11/09/23 16:00 90 16 99/67 91 L 11/09/23 15:45 89 15 102/63 91 L 11/09/23 15:30 89 16 101/60 94 L 11/09/23 14:16 92 11/09/23 14:01 96 11/09/23 14:00 101 H 19 116/63 91 L 11/09/23 13:45 97 17 90 L 11/09/23 13:30 112/57 11/09/23 13:20 105 H 11/09/23 13:15 100.7 F H 102 H 17 109/59 83 L FiO2 11/10/23 00:38 100 11/09/23 23:20 80 11/09/23 22:30 11/09/23 22:00 11/09/23 21:30 11/09/23 21:00 11/09/23 20:30 11/09/23 20:00 11/09/23 19:34 100 11/09/23 19:30 11/09/23 19:06 11/09/23 18:30 11/09/23 18:00 11/09/23 17:38 100 11/09/23 17:32 100 11/09/23 17:30 11/09/23 17:00 11/09/23 16:30 11/09/23 16:00 11/09/23 15:45 11/09/23 15:30 11/09/23 14:16 11/09/23 14:01 11/09/23 14:00 11/09/23 13:45 11/09/23 13:30 11/09/23 13:20 11/09/23 13:15 Intake and Output 11/09/23 11/09/23 11/10/23 14:59 22:59 06:59 Other: Weight 108.862 kg 108.862 kg Results CBC & Chem 7: 11/09/23 13:23 11/09/23 13:23 Labs: Abnormal Lab Results - Last 24 Hours (Table) 11/09/23 11/09/23 11/09/23 Range/Units 13:23 13:23 13:23 Plt Count 94 L (150-450) k/uL Lymphocytes # (Manual) 0.15 L (1.0-4.8) k/uL APTT 21.8 L (22.0-30.0) sec ABG pH (7.35-7.45) ABG pCO2 (35-45) mmHg ABG pO2 (83-108) mmHg ABG HCO3 (21-25) mmol/L ABG Total CO2 (19-24) mmol/L ABG O2 Saturation (94-97) % Calcium 7.8 L (8.4-10.2) mg/dL Total Protein 5.4 L (6.3-8.2) g/dL Albumin 3.0 L (3.5-5.0) g/dL Urine Blood (Negative) Ur Leukocyte Esterase (Negative) Urine RBC (0-5) /hpf Urine WBC (0-5) /hpf Urine Bacteria (None) /hpf Urine Mucus (None) /hpf 11/09/23 11/09/23 11/09/23 Range/Units 13:28 14:08 17:57 Plt Count (150-450) k/uL Lymphocytes # (Manual) (1.0-4.8) k/uL APTT (22.0-30.0) sec ABG pH 7.32 L (7.35-7.45) ABG pCO2 52 H 56 H (35-45) mmHg ABG pO2 68 L 80 L (83-108) mmHg ABG HCO3 29 H 29 H (21-25) mmol/L ABG Total CO2 31 H (19-24) mmol/L ABG O2 Saturation 93.0 L (94-97) % Calcium (8.4-10.2) mg/dL Total Protein (6.3-8.2) g/dL Albumin (3.5-5.0) g/dL Urine Blood Moderate H (Negative) Ur Leukocyte Esterase Moderate H (Negative) Urine RBC >182 H (0-5) /hpf Urine WBC 16 H (0-5) /hpf Urine Bacteria Rare H (None) /hpf Urine Mucus Rare H (None) /hpf Thrombosis Risk Factor Assmnt - Choose All That Apply Each Factor Represents 1 point: Swollen legs (current) Other Risk Factors: Yes Each Risk Factor Represents 3 Points: Age 75 years or older Other congenital or acquired thrombophilia - If yes, enter type in comment: No Thrombosis Risk Factor Assessment Total Risk Factor Score: 4 Thrombosis Risk Factor Assessment Level: Moderate Risk Assessment and Plan Assessment: 88-year-old male with A-fib on Eliquis coming in for what he is describing as panic attack and anxiety I discussed the case with ED doctor and accepted the admission for A-fib with RVR and hypoxemia with anticipated length of stay more than 2 midnights Acute hypoxic and hypercapnic respiratory failure Atrial fibrillation with rapid ventricular response CT angio of the chest showed no evidence of pulmonary embolism, positive for large left hiatal hernia Patient was given amiodarone bolus and started on amiodarone drip in the ED Cardiology consult Continue with Eliquis Continue with aspirin Continue with atorvastatin 10 mg nightly Troponin negative proBNP 541 Continue with BiPAP Cardiology and pulmonary consult UTI Urine analysis positive for leukocyte esterase and nitrite, follow-up cultures Rocephin 2 g IV piggyback daily BPH Continue with Flomax and finasteride Full code DVT prophylaxis on Eliquis for A-fib GI prophylaxis famotidine 40 mg p.o. twice daily Blood work overall unremarkable showing white count 3.8 hemoglobin 14.8 platelets 94 Sodium 137 potassium 3.7 BUN 18 creatinine 0.9
[2023-11-10] MEDS: AMIODARONE 450 MG in DEXTROSE 5% IN WATER 250 ML IV SCH (02:41)
[2023-11-10] MEDS ORDERED: IPRATROPIUM-ALBUTEROL 3 ML NEB INHALATION PRN ×2 (07:54)
[2023-11-10] MEDS: IPRATROPIUM-ALBUTEROL 3 ML NEB INHALATION SCH (08:28)
[2023-11-10] MEDS: AMPICILLIN-SULBACTAM 3 GM in SODIUM CHLORIDE 0.9% 100 ML IVPB SCH (08:29)
[2023-11-10] MEDS ORDERED: NON FORMULARY DRUG (Aspirin Ec 81 MG Tablet) PO SCH (09:00)
[2023-11-10] MEDS ORDERED: NON FORMULARY DRUG (Amlodipine Besylate/Benazepril [Lotrel 5-20 Mg] 1 EACH Capsule) PO SCH (09:00)
[2023-11-10] MEDS: lisinopriL 20 MG TAB PO SCH (09:05)
--- NOTE | 2023-11-10 09:43 | P.CRDCN ---
History of Present Illness History of present illness: HISTORY OF PRESENT ILLNESS: This is a 88-year-old male with a past medical history significant for atrial flutter, hypertension, and hyperlipidemia. Patient follows in the office with Dr. Salas. We have been asked to see the patient in consultation for hypoxia. Patient examined at the bedside. Patient states he came to the emergency room because his family was concerned about him. He states that he thought he was having a panic attack. He states that his upper extremities were shaking vigorously. He does report having a fever. He denied any chest pain or pressure. He reported having some shortness of breath which is chronic for him. The patient was found to be hypoxic upon arrival to the emergency room and was started on BiPAP. This morning he states his shortness of breath is at his baseline. He is currently on nasal cannula at the time of examination. The patient was also found to be febrile. Patient was diagnosed with a UTI and started on IV antibiotics. The patient has a known history of atrial flutter and is scheduled for an ablation on December 27, [address] Salas DIAGNOSTICS: - EKG reveals atrial flutter with controlled ventricular rate. - Chest xray elevated hemidiaphragm of the left with bilateral lower lobe infiltrate. Correlate for pneumonia.. - Laboratory data: WBC 3.8. Hemoglobin 14.8. Platelet count 94. Sodium 137. Potassium 3.7. BUN 18. Creatinine 0.93. Lactic acid 1.3. Troponin negative x 1. proBNP 541. - Current home cardiac medications include lovastatin 40 mg at night, amlodipine/benazepril 5-20 mg twice a day, Eliquis 2.5 mg twice a day, aspirin 81 mg daily. REVIEW OF SYSTEMS: At the time of my exam: CONSTITUTIONAL: Denies fever or chills. HEENT: Denies blurred vision, vision changes, or eye pain. Denies hemoptysis CARDIOVASCULAR: Denies chest pain. Denies orthopnea. Denies PND. Denies palpitations RESPIRATORY: Denies shortness of breath. GASTROINTESTINAL: Denies abdominal pain. Denies nausea or vomiting. HEMATOLOGIC: Denies bleeding disorders. GENITOURINARY: Denies any blood in urine. SKIN: Denies pruitis. Denies rash. PHYSICAL EXAM: VITAL SIGNS: Reviewed. GENERAL: Well-developed in no acute distress. HEENT: Head is normocephalic. Pupils are equal, round. Sclerae anicteric. Mucous membranes of the mouth are moist. Neck supple. No JVD or thyromegaly LUNGS: Respirations even and unlabored. Lungs essentially clear to auscultation bilaterally. HEART: Regular rate and rhythm. S1 and S2 heard. ABDOMEN: Soft. Nondistended. Nontender. EXTREMITIES: Normal range of motion. No clubbing or cyanosis. Peripheral pulses intact. Minimal lower extremity edema NEUROLOGIC: Awake and alert. Oriented x 3. ASSESSMENT: Acute hypoxic respiratory failure Urinary tract infection Persistent typical atrial flutter with controlled ventricular rate Chronic heart failure, type unknown, echo pending, currently appears to be euvolemic, BNP 541 Fever with rigors Hypertension Hyperlipidemia Large hiatal hernia PLAN: Discontinue IV amiodarone. No need for oral amiodarone. Continue anticoagulation with Eliquis Continue IV Lasix per pulmonary. May be transition to oral diuretics from a cardiology standpoint Continue additional cardiac medications Patient scheduled for atrial flutter ablation with Dr. Salas on December 27, 2023 Further recommendations pending patient course Nurse practitioner note has been reviewed by physician. Signing provider agrees with the documented findings, assessment, and plan of care documented by [employer] as a scribe. Past Medical History Past Medical History: Atrial Fibrillation, Hypertension, Prostate Disorder History of Any Multi-Drug Resistant Organisms: None Reported Past Surgical History: Appendectomy Additional Past Surgical History / Comment(s): L sided basal cell carcinoma removed from L ear, Smoking Status: Never smoker - Past Family History Mother Family Medical History: CVA/TIA Father Family Medical History: Myocardial Infarction ([place]) Medications and Allergies Home Medications Medication Instructions Recorded Confirmed Type Tamsulosin HCl [Flomax] 0.4 mg PO BID 11/25/14 11/09/23 History Finasteride [Proscar] 5 mg PO DAILY 11/11/15 11/09/23 History Lovastatin [Mevacor] 40 mg PO HS 11/11/15 11/09/23 History amLODIPine BESYLATE/BENAZEPRIL 1 cap PO BID 11/11/15 11/09/23 History [Lotrel 5-20 MG] Apixaban [Eliquis] 2.5 mg PO BID 11/09/23 11/09/23 History Aspirin EC [Ecotrin Low Dose] 81 mg PO DAILY 11/09/23 11/09/23 History Calcium 1000mg 1,000 mg PO DAILY 11/09/23 11/09/23 History Cholecalciferol [Vitamin D3 (25 25 mcg PO DAILY 11/09/23 11/09/23 History Mcg = 1000 Iu)] Famotidine [Pepcid] 40 mg PO BID 11/09/23 11/09/23 History Hydrocortisone Cream 1 applic TOPICAL BID PRN 11/09/23 11/09/23 History [Hydrocortisone 2.5% Cream] Ibandronate Sodium [Boniva] 150 mg PO Q30D 11/09/23 11/09/23 History Msm(Unknown Dose) 1 tab PO DAILY 11/09/23 11/09/23 History Multivitamins, Thera [Multivitamin 1 tab PO DAILY 11/09/23 11/09/23 History (formulary)] Vitamin C(Unknown Dose) 1 tab PO DAILY 11/09/23 11/09/23 History polyethylene glycoL 3350 [Miralax] 17 gm PO DAILY 11/09/23 11/09/23 History Allergies Allergy/AdvReac Type Severity Reaction Status Date / Time No Known Allergies Allergy Verified 11/09/23 16:26 Physical Exam Vitals: Vital Signs Temp Pulse Pulse Resp BP BP Pulse Ox 11/10/23 09:05 101/65 11/10/23 08:39 84 16 11/10/23 08:32 95 11/10/23 08:28 72 16 11/10/23 07:55 98.1 F 75 20 98/62 95 11/10/23 07:54 69 11/10/23 03:50 11/10/23 03:15 98.7 F 55 L 20 120/64 97 11/10/23 02:00 70 22 11/10/23 00:38 98.9 F 95 22 112/60 99 11/09/23 23:20 11/09/23 22:30 64 15 91/67 98 11/09/23 22:00 70 19 97/64 98 11/09/23 21:30 70 13 100/63 98 11/09/23 21:00 73 14 101/70 98 11/09/23 20:30 79 15 96/63 98 11/09/23 20:00 78 13 97/72 98 11/09/23 19:34 11/09/23 19:30 80 17 109/67 97 11/09/23 19:06 161 H 16 100/68 98 11/09/23 18:30 82 94/66 97 11/09/23 18:00 79 85/58 96 11/09/23 17:38 11/09/23 17:32 11/09/23 17:30 92 94/61 93 L 11/09/23 17:00 92 93/61 91 L 11/09/23 16:30 89 73/37 91 L 11/09/23 16:00 90 16 99/67 91 L 11/09/23 15:45 89 15 102/63 91 L 11/09/23 15:30 89 16 101/60 94 L 11/09/23 14:16 92 11/09/23 14:01 96 11/09/23 14:00 101 H 19 116/63 91 L 11/09/23 13:45 97 17 90 L 11/09/23 13:30 112/57 11/09/23 13:20 105 H 11/09/23 13:15 100.7 F H 102 H 17 109/59 83 L FiO2 11/10/23 09:05 11/10/23 08:39 11/10/23 08:32 11/10/23 08:28 11/10/23 07:55 11/10/23 07:54 11/10/23 03:50 80 11/10/23 03:15 80 11/10/23 02:00 11/10/23 00:38 100 11/09/23 23:20 80 11/09/23 22:30 11/09/23 22:00 11/09/23 21:30 11/09/23 21:00 11/09/23 20:30 11/09/23 20:00 11/09/23 19:34 100 11/09/23 19:30 11/09/23 19:06 11/09/23 18:30 11/09/23 18:00 11/09/23 17:38 100 11/09/23 17:32 100 11/09/23 17:30 11/09/23 17:00 11/09/23 16:30 11/09/23 16:00 11/09/23 15:45 11/09/23 15:30 11/09/23 14:16 11/09/23 14:01 11/09/23 14:00 11/09/23 13:45 11/09/23 13:30 11/09/23 13:20 11/09/23 13:15 Intake and Output 11/09/23 11/10/23 11/10/23 22:59 06:59 14:59 Intake Total 240 110 Output Total 200 Balance 40 110 Intake: Oral 240 110 Output: Urine 200 Other: Voiding Method Urinal Weight 107.5 kg Results 11/09/23 13:23 11/09/23 13:23 Cardiac Enzymes 11/09/23 11/09/23 Range/Units 13:23 13:23 AST 23 (17-59) U/L Troponin I <0.012 (0.000-0.034) ng/mL Coagulation 11/09/23 Range/Units 13:23 PT 12.2 (10.0-12.5) sec APTT 21.8 L (22.0-30.0) sec CBC 11/09/23 Range/Units 13:23 WBC 3.8 (3.8-10.6) k/uL RBC 4.61 (4.30-5.90) m/uL Hgb 14.8 (13.0-17.5) gm/dL Hct 45.4 (39.0-53.0) % Plt Count 94 L (150-450) k/uL Comprehensive Metabolic Panel 11/09/23 Range/Units 13:23 Sodium 137 (137-145) mmol/L Potassium 3.7 (3.5-5.1) mmol/L Chloride 106 (98-107) mmol/L Carbon Dioxide 25 (22-30) mmol/L BUN 18 (9-20) mg/dL Creatinine 0.93 (0.66-1.25) mg/dL Glucose 95 (74-99) mg/dL Calcium 7.8 L (8.4-10.2) mg/dL AST 23 (17-59) U/L ALT 15 (4-49) U/L Alkaline Phosphatase 60 (38-126) U/L Total Protein 5.4 L (6.3-8.2) g/dL Albumin 3.0 L (3.5-5.0) g/dL Current Medications Generic Name Dose Route Start Last Admin Trade Name Freq PRN Reason Stop Dose Admin Albuterol/Ipratropium 3 ml 03/20/24 07:54 Ipratropium-Albuterol 3 Ml Neb INHALATION RT-Q2H PRN Shortness Of Breath Or Wheezing Albuterol/Ipratropium 3 ml 11/10/23 08:00 11/10/23 08:28 Ipratropium-Albuterol 3 Ml Neb INHALATION 3 ml RT-QID [facility] Administration Amlodipine Besylate 5 mg 11/10/23 09:00 Amlodipine 5 Mg Tab PO BID [facility] Apixaban 2.5 mg 11/09/23 21:00 11/09/23 22:15 Apixaban 2.5 Mg Tablet PO 2.5 mg BID [facility] Administration Protocol Aspirin 81 mg 11/10/23 09:00 Aspirin 81 Mg PO DAILY [facility] Atorvastatin Calcium 10 mg 11/10/23 21:00 Atorvastatin 10 Mg Tab PO [facility] Calcium Carbonate/Glycine 1,000 mg 11/10/23 09:00 Calcium Carbonate 500 Mg Chewable PO DAILY [facility] Cholecalciferol 25 mcg 11/10/23 09:00 Cholecalciferol 25 Mcg (1000 Iu) Tablet PO DAILY [facility] Famotidine 40 mg 11/09/23 21:00 11/09/23 22:15 Famotidine 20 Mg Tab PO 40 mg BID [facility] Administration Finasteride 5 mg 11/10/23 09:00 Finasteride 5 Mg Tab PO DAILY [facility] Furosemide 20 mg 11/09/23 21:00 11/09/23 22:15 Furosemide 10 Mg/Ml 2 Ml Vial IV 20 mg Q12HR [facility] Administration Doxycycline Hyclate 100 mg/ 100 mls @ 100 mls/hr 11/10/23 09:00 Sodium Chloride IVPB Q12HR [facility] Ampicillin Sodium/Sulbactam 100 mls @ 200 mls/hr 11/10/23 08:00 11/10/23 08:29 Sodium 3 gm/ Sodium Chloride IVPB 200 mls/hr Q8HR [facility] Administration Lisinopril 20 mg 11/10/23 09:00 11/10/23 09:05 Lisinopril 20 Mg Tab PO Not Given BID [facility] Multivitamins 1 each 11/10/23 09:00 Multivitamins, Thera 1 Each Tab PO DAILY [facility] Tamsulosin HCl 0.4 mg 11/09/23 21:00 11/09/23 22:15 Tamsulosin 0.4 Mg Cap.Er.24h PO 0.4 mg BID [facility] Administration Intake and Output 11/09/23 11/10/23 11/10/23 22:59 06:59 14:59 Intake Total 240 110 Output Total 200 Balance 40 110 Intake: Oral 240 110 Output: Urine 200 Other: Voiding Method Urinal Weight 107.5 kg 11/09/23 13:23 11/09/23 13:23
[2023-11-10] MEDS: ASPIRIN 81 MG PO SCH (10:01)
[2023-11-10] MEDS: FINASTERIDE 5 MG TAB PO SCH (10:02)
[2023-11-10] MEDS: MULTIVITAMINS, THERA 1 EACH TAB PO SCH (10:02)
[2023-11-10] MEDS: amLODIPine 5 MG TAB PO SCH (10:02)
[2023-11-10] MEDS: CHOLECALCIFEROL 25 MCG (1000 IU) TABLET PO SCH (10:03)
[2023-11-10] MEDS: CALCIUM CARBONATE 500 MG CHEWABLE PO SCH (10:05)
[2023-11-10] MEDS: DOXYCYCLINE 100 MG in SODIUM CHLORIDE 0.9% 100 ML IVPB SCH (10:23)
[2023-11-10 11:05] LABS: Appearance,Urine Clear (Clear); Bilirubin,Urine Negative (Negative); Blood,Urine Negative (Negative); Color,Urine Yellow; Glucose,Urine (UA) Negative (Negative); Ketones,Urine Negative (Negative); Leukocyte Esterase,Urine Moderate (Negative); Mucus,Urine Rare /hpf; Nitrite,Urine Negative (Negative); Protein,Urine Negative (Negative); Specific Gravity,Urine 1.027 (1.001-1.035); Squamous Epithelial Cell,Urine <1 /hpf (0-4); Urobilinogen,Urine <2.0 mg/dL (<2.0); WBC,Urine 43 /hpf (0-5)
--- NOTE | 2023-11-10 11:55 | P.PN ---
Subjective Progress Note Date: 11/10/23 On today's evaluation of the , the patient was taken off the BiPAP and the patient is currently on 8 L of O2 nasal cannula which was further weaned down to 6 L. Current pulse ox is in the order of 95%. Cardiac rhythm is A-fib yet with a controlled rate. Awaiting repeat labs from today.The patient remains on Lasix 20 g IV every 12 hours. The patient remains on anticoagulation with Eliquis 2.5 mg twice a day. He was started with empiric antibiotic coverage and the patient is currently on IV Unasyn and doxycycline. Awake and alert and ommunicating. The patient has no significant dyspnea at rest. Objective - Vital Signs Vital signs: Vital Signs Temp 98.1 F 11/10/23 07:55 Pulse 82 11/10/23 11:32 Resp 18 11/10/23 11:32 BP 101/65 11/10/23 09:05 Pulse Ox 95 11/10/23 11:24 FiO2 80 11/10/23 03:50 Intake & Output 11/09/23 11/10/23 11/10/23 18:59 06:59 18:59 Intake Total 240 110 Output Total 200 Balance 40 110 Weight 108.862 kg 107.5 kg Intake: Oral 240 110 Output: Urine 200 Other: Voiding Method Urinal # Voids 1 - Exam General appearance the patient is calm and comfortable tolerating oxygen by dennis al cannula at 6 L/min. Awake and alert and communicating. Head exam was generally normal. There was no scleral icterus or corneal arcus. Mucous membranes were moist. Neck was supple and without jugular venous distension, thyromegaly, or carotid bruits. Carotids were easily palpable bilaterally. There was no adenopathy. Lung sounds are diminished bilaterally and few crackles in lung bases and breath sounds are quite diminished in left lung base. Heart sounds are irregular tachycardic consistent with atrial fibrillation. Overall heart sounds are distant. Abdominal exam revealed normal bowel sounds. The abdomen was soft, non-tender, and without masses, organomegaly, or appreciable enlargement of the abdominal aorta. The patient is obese and organs cannot be accurately palpated. Extremities reveal +1 edema and there is no cyanosis or clubbing at this point in time. Neurologically, moving all 4 extremities there is no focal neurological deficit. - Labs CBC & Chem 7: 11/09/23 13:23 03/19/24 13:23 Labs: Abnormal Lab Results - Last 24 Hours (Table) 11/09/23 11/09/23 11/09/23 Range/Units 13:23 13:23 13:23 Plt Count 94 L (150-450) k/uL Lymphocytes # (Manual) 0.15 L (1.0-4.8) k/uL APTT 21.8 L (22.0-30.0) sec ABG pH (7.35-7.45) ABG pCO2 (35-45) mmHg ABG pO2 (83-108) mmHg ABG HCO3 (21-25) mmol/L ABG Total CO2 (19-24) mmol/L ABG O2 Saturation (94-97) % Calcium 7.8 L (8.4-10.2) mg/dL Total Protein 5.4 L (6.3-8.2) g/dL Albumin 3.0 L (3.5-5.0) g/dL Urine Blood (Negative) Ur Leukocyte Esterase (Negative) Urine RBC (0-5) /hpf Urine WBC (0-5) /hpf Urine Bacteria (None) /hpf Urine Mucus (None) /hpf 11/09/23 11/09/23 11/09/23 Range/Units 13:28 14:08 17:57 Plt Count (150-450) k/uL Lymphocytes # (Manual) (1.0-4.8) k/uL APTT (22.0-30.0) sec ABG pH 7.32 L (7.35-7.45) ABG pCO2 52 H 56 H (35-45) mmHg ABG pO2 68 L 80 L (83-108) mmHg ABG HCO3 29 H 29 H (21-25) mmol/L ABG Total CO2 31 H (19-24) mmol/L ABG O2 Saturation 93.0 L (94-97) % Calcium (8.4-10.2) mg/dL Total Protein (6.3-8.2) g/dL Albumin (3.5-5.0) g/dL Urine Blood Moderate H (Negative) Ur Leukocyte Esterase Moderate H (Negative) Urine RBC >182 H (0-5) /hpf Urine WBC 16 H (0-5) /hpf Urine Bacteria Rare H (None) /hpf Urine Mucus Rare H (None) /hpf 11/10/23 Range/Units 10:59 Plt Count (150-450) k/uL Lymphocytes # (Manual) (1.0-4.8) k/uL APTT (22.0-30.0) sec ABG pH (7.35-7.45) ABG pCO2 (35-45) mmHg ABG pO2 (83-108) mmHg ABG HCO3 (21-25) mmol/L ABG Total CO2 (19-24) mmol/L ABG O2 Saturation (94-97) % Calcium (8.4-10.2) mg/dL Total Protein (6.3-8.2) g/dL Albumin (3.5-5.0) g/dL Urine Blood (Negative) Ur Leukocyte Esterase Moderate H (Negative) Urine RBC (0-5) /hpf Urine WBC 43 H (0-5) /hpf Urine Bacteria (None) /hpf Urine Mucus Rare H (None) /hpf Assessment and Plan Plan: Acute hypoxic/hypercapnic respiratory failure. Patient is currently on a BiPAP pressure of 12/6 with an FiO2 of 100%. Blood gas shows a component of chronic hypercapnic respiratory failure and is quite expected as the patient has a large hiatal hernia occupying the majority of the left lung causing some restrictive physiology on his lungs. Note that the patient is not oxygen dependent. He is obese. There may be a component of CHF in the setting of A-fib RVR contributing to his acute hypoxic and hypercapnic respiratory failure. No evidence of pn eumonia. No evidence of any pulmonary embolism based on the CTA of the chest. The patient was supported with BiPAP overnight and the patient is currently on 6 L of O2 nasal cannula. Awake and alert and communicating. The patient is also on Lasix 20 mg IV every 12 hours. Patient is on Unasyn as an empiric antibiotic coverage pending further cultures. Shortness of breath secondary to above, acute Paroxysmal atrial fibrillation with controlled rate currently on anticoagulation with Eliquis 2.5 mg twice a day Large hiatal hernia occupying the majority of the left hemithorax along with atelectatic changes in the left lung base Hypertension Hyperlipidemia BPH History of skin cancer in the form of basal cell carcinoma resected from his left earlobe. Plan BiPAP has been discontinued and the patient is currently on 6 L O2 nasal cannula Patient was seen by cardiology. Amiodarone has been discontinued and the patient remains in A-fib with a controlled rate Echocardiogram pending from today Continue anticoagulation with Eliquis Lasix 20 mg IV every 12 hours Continue Unasyn pending further cultures Monitor electrolytes Will consult cardiology Will establish again a CODE STATUS. Based on preliminary conversations with the family, the patient does not want any heroic measures. I am assuming that he is a DNI CODE STATUS at this point in time. Will continue to follow.
--- NOTE | 2023-11-10 11:55 | P.CNPUL ---
History of Present Illness Consult date: 11/09/23 History of present illness: *Live* [facility] [address], [place] [address] Pulmonology - Consult Note Patient Name: Carola Johnson Date of : 1935 Patient Status: Surgical Day Care Attending Provider: Rajan Salas Date: 11/09/23 19:06 Initialization Date: 11/09/23 19:06 History of Present Illness Consult date: 11/09/23 Reason for consult: dyspnea, hypoxemia History of present illness: Patient is a 88-year-old male patient was brought into the Emergency Department because of increased shortness of breath. The patient is known to have paroxysmal atrial fibrillation. The patient has been managed by Dr. Ny on outpatient basis and the patient was being considered for ablation of the atrial fibrillation. This was scheduled to be done a few months time. In the emergency department, the patient was having tachycardia he was found to be in A-fib RVR and he was having paroxysmal atrial fibrillation with sinus rhythm in between. He also was found to be hypoxic and the patient was placed on a BiPAP pressure of 12/6 and a meters of water with an FiO2 of 100%. He is able to tolerate the BiPAP reasonably well without any major difficulties and generating adequate tidal volumes. The patient's blood work showed a white cell count of 3.8 with a hemoglobin 14.8 and a platelet count of 94. Normal coagulation profile. Initial blood gas showed a pH of 7.35 with a pCO2 of 52 and pO2 of 68 and the patient had a BUN of 18 with a creatinine of 0.9 and sodium level of 137. Potassium level is at 3.7. The LFTs are within normal limits. The viral panel including influenza, COVID-19 and RSV were all negative. The first set of cardiac enzymes was negative and the proBNP level was 541. Based on his underlying hypoxic respiratory failure, the patient was given a chest x-ray that showed a large hiatal hernia involving the left hemithorax. Left hemidiaphragm was also elevated. There was some increased interstitial markings bilaterally. Subsequently, the patient was given a CT angiogram of the chest that showed no evidence of any pulmonary embolism. There was a large hiatal hernia containing the stomach taking the majority of the left lung. There are some atelectatic change in the left lung base along with cardiomegaly and increased pulmonary vascular markings bilaterally. No significant mediastinal lymphadenopathy. The patient continued to have episodes of atrial fibrillation. I saw the patient in the emergency. I started him on amiodarone drip per protocol. He was also loaded with amiodarone. He will be gently diuresed with IV Lasix. He was started on empiric antibiotic coverage with IV Rocephin although there is no clear indication that the patient may be infected at this point in time. UA was abnormal essentially bloody. He is sluggishly responsive he communicates. He states that he does not want any aggressive measures done and I believe that he may be a DNR/DNI CODE STATUS. His grandson and his [id number] are at the bedside at this point in time. His previous echocardiogram and LV function is not known to me at this point. He has history of BPH, hyperlipidemia and hypertension. He also has history of skin cancer in the form of basal cell carcinoma involving the left ear that has been resected. Review of Systems Constitutional: Reports fatigue, Reports weakness Eyes: denies as per HPI, denies blurred vision, denies bulging eye, denies decreased vision, denies diplopia, denies discharge, denies dry eye, denies irritation, denies itching, denies pain, denies photophobia, denies loss of peripheral vision, denies loss of vision, denies tunnel vision/blind spots Ears: bilateral: decreased hearing, deny: ear discharge, earache, tinnitus Ears, nose, mouth and throat: Reports as per HPI Breasts: absent: as per HPI, gynecomastia Cardiovascular: Reports decreased exercise tolerance, Reports dyspnea on exertion, Reports irregular heart beat, Reports palpitations, Reports rapid heart beat Respiratory: Reports dyspnea Gastrointestinal: Reports as per HPI Genitourinary: Reports as per HPI Musculoskeletal: Reports as per HPI Musculoskeletal: bilateral: ankle swelling, absent: ankle pain, ankle stiffness Integumentary: Reports as per HPI Neurological: Reports as per HPI Psychiatric: Reports as per HPI Endocrine: Reports as per HPI Hematologic/Lymphatic: Reports as per HPI Allergic/Immunologic: Reports as per HPI Past Medical History Past Medical History: Atrial Fibrillation, Cancer (skin cancer), Hyperlipidemia, Hypertension, Prostate Disorder History of Any Multi-Drug Resistant Organisms: None Reported Past Surgical History: Appendectomy Additional Past Surgical History / Comment(s): L sided basal cell carcinoma removed from L ear, Past Psychological History: No Psychological Hx Reported Smoking Status: Former smoker Past Alcohol Use History: Daily (daily martini) Past Drug Use History: None Reported - Past Family History Mother Family Medical History: CVA/TIA Father Family Medical History: Myocardial Infarction ([place]) Medications and Allergies Home Medications Medication Instructions Recorded Confirmed Type Tamsulosin HCl [Flomax] 0.4 mg PO BID 11/25/14 11/09/23 History Finasteride [Proscar] 5 mg PO DAILY 11/11/15 11/09/23 History Lovastatin [Mevacor] 40 mg PO HS 11/11/15 11/09/23 History amLODIPine BESYLATE/BENAZEPRIL 1 cap PO BID 11/11/15 11/09/23 History [Lotrel 5-20 MG] Apixaban [Eliquis] 2.5 mg PO BID 11/09/23 11/09/23 History Aspirin EC [Ecotrin Low Dose] 81 mg PO DAILY 11/09/23 11/09/23 History Calcium 1000mg 1,000 mg PO DAILY 11/09/23 11/09/23 History Cholecalciferol [Vitamin D3 (25 25 mcg PO DAILY 11/09/23 11/09/23 History Mcg = 1000 Iu)] Famotidine [Pepcid] 40 mg PO BID 11/09/23 11/09/23 History Hydrocortisone Cream 1 applic TOPICAL BID PRN 11/09/23 11/09/23 History [Hydrocortisone 2.5% Cream] Ibandronate Sodium [Boniva] 150 mg PO Q30D 11/09/23 11/09/23 History Msm(Unknown Dose) 1 tab PO DAILY 11/09/23 11/09/23 History Multivitamins, Thera [Multivitamin 1 tab PO DAILY 11/09/23 11/09/23 History (formulary)] Vitamin C(Unknown Dose) 1 tab PO DAILY 11/09/23 11/09/23 History polyethylene glycoL 3350 [Miralax] 17 gm PO DAILY 11/09/23 11/09/23 History Allergies Allergy/AdvReac Type Severity Reaction Status Date / Time No Known Allergies Allergy Verified 11/09/23 16:26 Physical Exam General appearance the patient is calm and comfortable tolerating BiPAP pressure of 12/6 with an FiO2 of 100% and the patient seems to be in mild degree of respiratory distress at this point in time. Arousable, follows simple commands. Head exam was generally normal. There was no scleral icterus or corneal arcus. Mucous membranes were moist. Neck was supple and without jugular venous distension, thyromegaly, or carotid b ruits. Carotids were easily palpable bilaterally. There was no adenopathy. Lung sounds are diminished bilaterally and few crackles in lung bases and breath sounds are quite diminished in left lung base. Heart sounds are irregular tachycardic consistent with atrial fibrillation. Overall heart sounds are distant. Abdominal exam revealed normal bowel sounds. The abdomen was soft, non-tender, and without masses, organomegaly, or appreciable enlargement of the abdominal aorta. The patient is obese and organs cannot be accurately palpated. Extremities reveal +1 edema and there is no cyanosis or clubbing at this point in time. Neurologically, moving all 4 extremities there is no focal neurological deficit. Results - Diagnostic Findings Chest x-ray: image reviewed CT scan - chest: image reviewed Assessment and Plan Plan: Acute hypoxic/hypercapnic respiratory failure. Patient is currently on a BiPAP pressure of 12/6 with an FiO2 of 100%. Blood gas shows a component of chronic hypercapnic respiratory failure and is quite expected as the patient has a large hiatal hernia occupying the majority of the left lung causing some restrictive physiology on his lungs. Note that the patient is not oxygen dependent. He is obese. There may be a component of CHF in the setting of A-fib RVR contributing to his acute hypoxic and hypercapnic respiratory failure. No evidence of pneumonia. No evidence of any pulmonary embolism based on the CTA of the chest Shortness of breath secondary to above, acute Paroxysmal atrial fibrillation with rapid ventricular response and a heart rate is as high as 150 during the episodes of A-fib RVR Large hiatal hernia occupying the majority of the left hemithorax along with atelectatic changes in the left lung base Hypertension Hyperlipidemia BPH History of skin cancer in the form of basal cell carcinoma resected from his left earlobe. Plan Continue BiPAP and wean down FiO2 as tolerated to maintain saturation above 90% Repeat blood gas in the morning. Will keep the patient on BiPAP throughout the night Amiodarone loading and this will be continued per protocol Echocardiogram Continue anticoagulation with Eliquis Lasix 20 mg IV every 12 hours Monitor electrolytes Will consult cardiology Will establish again a CODE STATUS. Based on preliminary conversations with the family, the patient does not want any heroic measures. I am assuming that he is a DNI CODE STATUS at this point in time. Will continue to follow. Past Medical History Past Medical History: Atrial Fibrillation, Hypertension, Prostate Disorder History of Any Multi-Drug Resistant Organisms: None Reported Past Surgical History: Appendectomy Additional Past Surgical History / Comment(s): L sided basal cell carcinoma rem myriam from L ear, Smoking Status: Never smoker - Past Family History Mother Family Medical History: CVA/TIA Father Family Medical History: Myocardial Infarction ([place]) Medications and Allergies Home Medications Medication Instructions Recorded Confirmed Type Tamsulosin HCl [Flomax] 0.4 mg PO BID 11/25/14 11/09/23 History Finasteride [Proscar] 5 mg PO DAILY 11/11/15 11/09/23 History Lovastatin [Mevacor] 40 mg PO HS 11/11/15 11/09/23 History amLODIPine BESYLATE/BENAZEPRIL 1 cap PO BID 11/11/15 11/09/23 History [Lotrel 5-20 MG] Apixaban [Eliquis] 2.5 mg PO BID 11/09/23 11/09/23 History Aspirin EC [Ecotrin Low Dose] 81 mg PO DAILY 11/09/23 11/09/23 History Calcium 1000mg 1,000 mg PO DAILY 11/09/23 11/09/23 History Cholecalciferol [Vitamin D3 (25 25 mcg PO DAILY 11/09/23 11/09/23 History Mcg = 1000 Iu)] Famotidine [Pepcid] 40 mg PO BID 11/09/23 11/09/23 History Hydrocortisone Cream 1 applic TOPICAL BID PRN 11/09/23 11/09/23 History [Hydrocortisone 2.5% Cream] Ibandronate Sodium [Boniva] 150 mg PO Q30D 11/09/23 11/09/23 History Msm(Unknown Dose) 1 tab PO DAILY 11/09/23 11/09/23 History Multivitamins, Thera [Multivitamin 1 tab PO DAILY 11/09/23 11/09/23 History (formulary)] Vitamin C(Unknown Dose) 1 tab PO DAILY 11/09/23 11/09/23 History polyethylene glycoL 3350 [Miralax] 17 gm PO DAILY 11/09/23 11/09/23 History Allergies Allergy/AdvReac Type Severity Reaction Status Date / Time No Known Allergies Allergy Verified 11/09/23 16:26 Physical Exam Vitals: Vital Signs Temp Pulse Pulse Resp BP BP Pulse Ox 11/10/23 11:32 82 18 11/10/23 11:24 80 18 95 11/10/23 09:05 101/65 11/10/23 08:39 84 16 11/10/23 08:32 95 11/10/23 08:28 72 16 11/10/23 07:55 98.1 F 75 20 98/62 95 11/10/23 07:54 69 11/10/23 03:50 11/10/23 03:15 98.7 F 55 L 20 120/64 97 11/10/23 02:00 70 22 11/10/23 00:38 98.9 F 95 22 112/60 99 11/09/23 23:20 11/09/23 22:30 64 15 91/67 98 11/09/23 22:00 70 19 97/64 98 11/09/23 21:30 70 13 100/63 98 11/09/23 21:00 73 14 101/70 98 11/09/23 20:30 79 15 96/63 98 11/09/23 20:00 78 13 97/72 98 11/09/23 19:34 11/09/23 19:30 80 17 109/67 97 11/09/23 19:06 161 H 16 100/68 98 11/09/23 18:30 82 94/66 97 11/09/23 18:00 79 85/58 96 11/09/23 17:38 11/09/23 17:32 11/09/23 17:30 92 94/61 93 L 11/09/23 17:00 92 93/61 91 L 11/09/23 16:30 89 73/37 91 L 11/09/23 16:00 90 16 99/67 91 L 11/09/23 15:45 89 15 102/63 91 L 11/09/23 15:30 89 16 101/60 94 L 11/09/23 14:16 92 11/09/23 14:01 96 11/09/23 14:00 101 H 19 116/63 91 L 11/09/23 13:45 97 17 90 L 11/09/23 13:30 112/57 11/09/23 13:20 105 H 11/09/23 13:15 100.7 F H 102 H 17 109/59 83 L FiO2 11/10/23 11:32 11/10/23 11:24 11/10/23 09:05 11/10/23 08:39 11/10/23 08:32 11/10/23 08:28 11/10/23 07:55 11/10/23 07:54 11/10/23 03:50 80 11/10/23 03:15 80 11/10/23 02:00 11/10/23 00:38 100 11/09/23 23:20 80 11/09/23 22:30 11/09/23 22:00 11/09/23 21:30 11/09/23 21:00 11/09/23 20:30 11/09/23 20:00 11/09/23 19:34 100 11/09/23 19:30 11/09/23 19:06 11/09/23 18:30 11/09/23 18:00 11/09/23 17:38 100 11/09/23 17:32 100 11/09/23 17:30 11/09/23 17:00 11/09/23 16:30 11/09/23 16:00 11/09/23 15:45 11/09/23 15:30 11/09/23 14:16 11/09/23 14:01 11/09/23 14:00 11/09/23 13:45 11/09/23 13:30 11/09/23 13:20 11/09/23 13:15 Intake and Output 11/09/23 11/10/23 11/10/23 22:59 06:59 14:59 Intake Total 240 110 Output Total 200 Balance 40 110 Intake: Oral 240 110 Output: Urine 200 Other: Voiding Method Urinal # Voids 1 Weight 107.5 kg Results - Laboratory Findings CBC and BMP: 11/09/23 13:23 11/09/23 13:23 ABG ABG pH 7.32 (7.35-7.45) L 11/09/23 17:57 ABG pCO2 56 mmHg (35-45) H 11/09/23 17:57 ABG pO2 80 mmHg (83-108) L 11/09/23 17:57 ABG O2 Saturation 95.4 % (94-97) 11/09/23 17:57 PT/INR, D-dimer PT 12.2 sec (10.0-12.5) 11/09/23 13:23 INR 1.1 (<1.2) 11/09/23 13:23 Abnormal lab findings: Abnormal Labs 11/09/23 11/09/23 11/09/23 13:23 13:23 13:23 Plt Count 94 L Lymphocytes # (Manual) 0.15 L APTT 21.8 L ABG pH ABG pCO2 ABG pO2 ABG HCO3 ABG Total CO2 ABG O2 Saturation Calcium 7.8 L Total Protein 5.4 L Albumin 3.0 L Urine Blood Ur Leukocyte Esterase Urine RBC Urine WBC Urine Bacteria Urine Mucus 11/09/23 11/09/23 11/09/23 13:28 14:08 17:57 Plt Count Lymphocytes # (Manual) APTT ABG pH 7.32 L ABG pCO2 52 H 56 H ABG pO2 68 L 80 L ABG HCO3 29 H 29 H ABG Total CO2 31 H ABG O2 Saturation 93.0 L Calcium Total Protein Albumin Urine Blood Moderate H Ur Leukocyte Esterase Moderate H Urine RBC >182 H Urine WBC 16 H Urine Bacteria Rare H Urine Mucus Rare H 11/10/23 10:59 Plt Count Lymphocytes # (Manual) APTT ABG pH ABG pCO2 ABG pO2 ABG HCO3 ABG Total CO2 ABG O2 Saturation Calcium Total Protein Albumin Urine Blood Ur Leukocyte Esterase Moderate H Urine RBC Urine WBC 43 H Urine Bacteria Urine Mucus Rare H
[2023-11-10] MEDS ORDERED: DEXTROSE 50% SYRINGE 50 ML IVP PRN ×2 (12:13)
--- NOTE | 2023-11-10 12:23 | P.PN ---
Subjective Progress Note Date: 11/10/23 Hospital course: Patient is a very pleasant 88-year-old male with a past medical history of atrial fibrillation on anticoagulation with Eliquis, hypertension, and BPH. He presented to the emergency department on 11/09/2023 in respiratory distress after calling EMS for shortness of breath. Per documentation in chart patient arrived to the ED with SpO2 of 67% on room air. Vital signs upon arrival positive for sepsis with blood pressure 109/59, heart rate 105, respiratory rate 17, temp 100.7 F, and SpO2 of 67% on room air requiring O2 supplementation 6 L for an SpO2 of 90% and later titrated upwards eventually placing patient on BiPAP with an FiO2 of 100% maintaining SpO2 of 96% or above. EKG upon arrival showing atrial fibrillation/flutter with a controlled ventricular rate of 88 bpm and a right bundle branch block with QRS duration of 142 ms. Chest x-ray showing elevated hemidiaphragm on the left with bilateral lobe lower infiltrate concerning for pneumonia. CTA chest was completed showing a large hiatal hernia containing the stomach taking the majority of the left lung with mild cardiomegaly and coronary artery atherosclerosis. Labs completed and reviewed. CBC showing thrombocytopenia with platelet count of 94. Coagulation profile rex wing slightly low PTT of 21.8. BMP was unremarkable. Lactic acid normal findings at 1.3. Liver profile unremarkable. Calcium 7.8 with albumin of 3.0 indicating a corrected calcium of 8.6. Troponin was negative at less than 0.012 and proBNP was 541. Urinalysis positive for blood nitrates and greater than 182 RBCs not specific for infection showing only 16 WBCs. Influenza A, influenza B, RSV, and COVID PCR were negative. Patient admitted under our services with consultation to pulmonology and general surgery. Patient later went into atrial fibrillation with RVR and given an amiodarone bolus followed by placement on maintenance amiodarone infusion. Physical exam: Vital signs reviewed and stable. General: Nontoxic, no distress and appears stated age. Derm: Skin warm and dry, normal coloration for ethnicity. Head: Atraumatic, normocephalic and symmetric. Eyes: EOMs intact, no lid lag, and anicteric sclera Mouth: no lip lesions, mucus membranes moist Cardiovascular: regular rate and rhythm with normal S1S2, no murmur, positive posterior tibial pulses bilaterally, and cap refill < 2 seconds. Lungs: Respirations even, regular, and unlabored on 8 L O2 via high flow NC. Lungs diminished. Abdominal: soft, nontender to palpation, no guarding, no appreciable organomegaly Ext: ROM intact. No gross muscle atrophy, scant lower extremity edema, no contractures Neuro: Speech clear, face symmetrical and CN II-XII grossly intact with no noted focal neuro deficits Psych: Alert and oriented to person, place, time, and situation. Appropriate and pleasant affect. Assessment and Plan of Care: Acute respiratory failure with hypoxia and hypercapnia Suspected Bilateral lower lobe pneumonia, possible aspiration as pt reports dysphasia Large hiatal hernia taking the majority of the left lung space -Continue supplemental oxygen and/or BiPAP as needed, titrate to maintain SPO2 equal to or greater than 90% -Continuous telemetry monitoring. -Monitor pulse-oximetry -Duonebs scheduled 4 times daily and as needed for SOB and/or wheezing -Patient febrile and tachycardic upon arrival, urinalysis not convincing for UTI and concerns for possible lower lobe pneumonia, possibly aspiration secondary to his reports of dysphasia. Discussed with pulmonology we will continue antibiotics with: Unasyn 3 g IVPB every 8 hours and doxycycline 100 mg IVPB every 12 hours -Follow-up on blood cultures -Pulmonology following, discussed plan of care with Dr. Louise. -General surgery following, discussed plan of care with general surgery PA and placed patient on NPO diet. -Order placed for barium swallow evaluation and aspiration precautions Atrial fibrillation with RVR Chronic heart failure, unclear type pending echocardiogram results Hypertension -Cardiology following, discussed plan of care with cardiac AGRICULTURE MANAGER. Amiodarone discontinued. -Telemetry monitoring -Troponin was negative at less than 0.012 and proBNP was only 541. -Continue cardiac medication regimen with aspirin 81 mg daily, atorvastatin 10 mg nightly, Eliquis 2.5 mg twice daily, amlodipine 5 mg twice daily and lisinopril 20 mg twice daily. -Patient started on Lasix 20 mg IVP per pulmonology -Echocardiogram to be completed Abnormal urinalysis -Urinalysis positive for blood, nitrates, leukocytes, greater than 182 RBCs but only 16 WBCs which is not convincing for infection and patient currently denies any urinary complaints including frequency, urgency, or dysuria. -Will repeat urinalysis and obtain a urine culture. BPH -Continue Flomax 0.4 mg twice daily. Data and imaging reviewed: -EKG upon arrival showing atrial fibrillation/flutter with a controlled ventricular rate of 88 bpm and a right bundle branch block with QRS duration of 142 ms. -Chest x-ray showing elevated hemidiaphragm on the left with bilateral lobe lower infiltrate concerning for pneumonia. -CTA chest was completed showing a large hiatal hernia containing the stomach taking the majority of the left lung with mild cardiomegaly and coronary artery atherosclerosis. -Labs reviewed. CBC showing thrombocytopenia with platelet count of 94. Coagulation profile showing slightly low PTT of 21.8. BMP was unremarkable. Lactic acid normal findings at 1.3. Liver profile unremarkable. Calcium 7.8 with albumin of 3.0 indicating a corrected calcium of 8.6. Troponin was negative at less than 0.012 and proBNP was 541. -Urinalysis positive for blood nitrates and greater than 182 RBCs not specific for infection showing only 16 WBCs. -Influenza A, influenza B, RSV, and COVID PCR were negative. -Vital signs reviewed. Blood pressure 98/62, heart rate 75, respiratory rate 20, temp 98.1 F, and SpO2 of 95% on 8 L high flow nasal cannula. CODE STATUS: Full code DVT prophylaxis: Eliquis Anticipated discharge date: Clinical course to determine Anticipated discharge place: Clinical course to determine Patient was seen independently by Nurse Pracitioner. This document was prepared using [employer] dictation software. Please allow for errors in information technology project manager, while rare they do occur. Rogers Leyva NP rendered care for this patient independently, reviewed the findings and plan as documented in the note above. I did not physically speak with or examine the patient on this date. Objective - Vital Signs Vital signs: Vital Signs Temp 98.7 F 11/10/23 03:15 Pulse 55 L 11/10/23 03:15 Resp 20 11/10/23 03:15 BP 120/64 11/10/23 03:15 Pulse Ox 97 11/10/23 03:15 FiO2 80 11/10/23 03:50 Intake & Output 11/09/23 11/10/23 11/10/23 18:59 06:59 18:59 Intake Total 240 Output Total 200 Balance 40 Weight 108.862 kg 107.5 kg Intake: Oral 240 Output: Urine 200 - Labs CBC & Chem 7: 11/10/23 17:25 11/10/23 17:25 Labs: Abnormal Lab Results - Last 24 Hours (Table) 11/09/23 11/09/23 11/09/23 Range/Units 13:23 13:23 13:23 Plt Count 94 L (150-450) k/uL Lymphocytes # (Manual) 0.15 L (1.0-4.8) k/uL APTT 21.8 L (22.0-30.0) sec ABG pH (7.35-7.45) ABG pCO2 (35-45) mmHg ABG pO2 (83-108) mmHg ABG HCO3 (21-25) mmol/L ABG Total CO2 (19-24) mmol/L ABG O2 Saturation (94-97) % Calcium 7.8 L (8.4-10.2) mg/dL Total Protein 5.4 L (6.3-8.2) g/dL Albumin 3.0 L (3.5-5.0) g/dL Urine Blood (Negative) Ur Leukocyte Esterase (Negative) Urine RBC (0-5) /hpf Urine WBC (0-5) /hpf Urine Bacteria (None) /hpf Urine Mucus (None) /hpf 11/09/23 11/09/23 11/09/23 Range/Units 13:28 14:08 17:57 Plt Count (150-450) k/uL Lymphocytes # (Manual) (1.0-4.8) k/uL APTT (22.0-30.0) sec ABG pH 7.32 L (7.35-7.45) ABG pCO2 52 H 56 H (35-45) mmHg ABG pO2 68 L 80 L (83-108) mmHg ABG HCO3 29 H 29 H (21-25) mmol/L ABG Total CO2 31 H (19-24) mmol/L ABG O2 Saturation 93.0 L (94-97) % Calcium (8.4-10.2) mg/dL Total Protein (6.3-8.2) g/dL Albumin (3.5-5.0) g/dL Urine Blood Moderate H (Negative) Ur Leukocyte Esterase Moderate H (Negative) Urine RBC >182 H (0-5) /hpf Urine WBC 16 H (0-5) /hpf Urine Bacteria Rare H (None) /hpf Urine Mucus Rare H (None) /hpf
--- NOTE | 2023-11-10 14:45 | FL ---
EXAMINATION TYPE: FL barium swallow DATE OF EXAM: 11/10/2023 2:28 PM COMPARISON: CT 11/09/2023 CLINICAL INDICATION:Male, 88 years old with history of evaluate swallowing, lg hiatal hernia; PHH, TECHNIQUE: The procedure was explained and patient history elicited. All patient questions were ans wered prior to start of procedure. Multiple spot fluoroscopic images of the esophagus were obtained a fter the oral ingestion of effervescent crystals and liquid barium as the contrast agent. Fluoroscopic time: 37 sec Fluoroscopic images: Radiographs taken: DAP: [id number] [id number] FINDINGS: Limited exam due to patient mobility. Tertiary contractions are seen throughout the esophagus with slow motility through the esophagus. The re is a large hiatal hernia as seen on CT imaging. IMPRESSION: Esophageal dysmotility with large hiatal hernia with the stomach in the thorax as seen on recent CT c hest.
--- NOTE | 2023-11-10 15:42 | P.GSCN ---
History of Present Illness Consult date: 11/10/23 History of present illness: CHIEF COMPLAINT: Shortness of breath HISTORY OF PRESENT ILLNESS: This is a 88-year-old male who presented with worsening shortness of breath and racing heart. He was found to have evidence of A-fib with RVR UTI and CHF exacerbation. Patient had a CTA of the chest to rule out PE. There was no evidence of PE but did report a large hiatal hernia containing stomach and a major portion of the left lung. Patient reports he has had a hiatal hernia for about 20 years and within the last year it had increased in size and it was noted is a large hiatal hernia. Patient reports that he was told just to monitor the hiatal hernia. Patient denies any nausea or vomiting or heartburn. He does admit to having shortness of breath as well as coughing. Patient reports difficulty with swallowing both solids and liquids. However, it is more difficult with the solids than the liquids. He denies any abdominal pain. He is on eliquis for Afib. PAST MEDICAL HISTORY: See list. PAST SURGICAL HISTORY: See list. MEDICATIONS: See list. ALLERGIES: See list. SOCIAL HISTORY: No illicit drug use. REVIEW OF SYSTEMS: CONSTITUTIONAL: Denies fever or chills. HEENT: Denies blurred vision, vision changes, or eye pain. Denies hemoptysis ENDOCRINE: Denies heat or cold intolerance. CARDIOVASCULAR: Denies chest pain or pressure. RESPIRATORY: No shortness of breath. GASTROINTESTINAL: Denies abdominal pain. Denies nausea or vomiting. NEURO: Denies history of seizures. PSYCH: No depression or suicidal ideation HEMATOLOGIC: Denies bleeding disorders. LYMPHATIC: The patient denies any lumps and bumps around the neck. GENITOURINARY: Denies any blood in urine or increased urinary frequency. MUSCULOSKELETAL: Denies myalgias. Denies joint swelling. Denies decreased range of motion beyond patients baseline. SKIN: Denies pruitis. Denies rash. PHYSICAL EXAM: VITAL SIGNS: Reviewed GENERAL: Well-developed in no acute distress. HEENT: No sclera icterus. Extraocular movements grossly intact. Moist buccal mucosa. Head is atraumatic, normocephalic. Hears conversational speech. No nasal drainage. NECK: Supple without lymphadenopathy. CHEST: Non-labored respirations and equal bilateral excursions. CARDIOVASCULAR: Palpable 2+ radial pulses. ABDOMEN: Soft. Nondistended. Nontender MUSCULOSKELETAL: No clubbing or cyanosis. NEUROLOGIC: No focal or lateralizing signs. Cranial nerves II through XII grossly intact. PSYCH: Appropriate affect. Alert and oriented to person, place and time. SKIN: Well perfused. Good skin turgor. LABORATORY DATA: WBC 3.8 Hgb 14.8 platelets 94 Sodium is 137 potassium 3.7 creatinine 0.93 Lactic acid 1.3 LFTs normal IMAGING: Chest CTA shows no evidence of pulmonary embolism. Large hiatal hernia containing stomach taking the majority of the left lung. Low lung volumes with basilar atelectasis. Cardiomegaly and coronary artery arthrosclerosis ASSESSMENT: 1. Large hiatal hernia containing stomach and the majority of the left lung PLAN: -Recommend consulting cardiothoracic service for evaluation of the large hiatal hernia -Keep patient n.p.o. for now -Agree with modified barium swallow Physician Menswear Salesperson note has been reviewed by physician. Signing provider agrees with the documented findings, assessment, and plan of care. Please see additional documentation below CHIEF COMPLAINT: Shortness of breath HISTORY OF PRESENT ILLNESS: The patient is a 88 year old male who presented to the hospital with shortness of breath including chest pain. Patient presented with acute onset atrial fibrillation with rapid ventricular response. He is on blood thinners. Patient was being evaluated for potential pulmonary embolism with a CT chest. Incidental finding of large paraesophageal hiatal hernia hence general surgery was consulted. Patient has pre-existing history of dysphagia. Patient also confirms pre-existing known history of his hiatal hernia without prior surgical intervention being sought. PAST MEDICAL HISTORY: See list and reviewed PAST SURGICAL HISTORY: See list and reviewed MEDICATIONS: See list and reviewed ALLERGIES: See list and reviewed SOCIAL HISTORY: See list and reviewed FAMILY HISTORY: See list and reviewed REVIEW OF ORGAN SYSTEMS: CONSTITUTIONAL: No fevers or chills. No recent weight loss. EYES: Denies any trouble with vision. No glasses. HEENT: No difficulties with hearing. No nosebleeds. Has difficulty with swallowing liquids and solids. RESPIRATORY: Has shortness of breath CARDIOVASCULAR: Has chest pain with atrial fibrillation and rapid ventricular response. Has hypertensive heart disease. Congestive heart failure GASTROINTESTINAL: Denies fatty food intolerance. Denies change in bowel habits and gas bloat. GENITOURINARY: Has obstructive uropathy. NEUROLOGICAL: Denies any numbness or tingling along the distal extremities. No seizure disorders or headaches. MUSCULOSKELETAL: Has back pain, stiffness or joint arthritis. Has osteoporosis. SKIN: History of basal cell cancer. PSYCHIATRIC: Denies current depression or suicidal thoughts. ENDOCRINE: Denies current thyroid disorders. Denies any blood sugar glucose intolerance. HEME/LYMPHATIC: Currently on blood thinners. ALLERGY/IMMUNOLOGY: No immunoglobulin therapy. No immune deficiencies. BREAST: Denies current breast lumps, pain or nipple discharge. PHYSICAL EXAM: VITALS: Reviewed CONSTITUTIONAL: Well developed and in no acute distress. EYES: Conjuctivae without sclera icterus. Extraocular movements grossly intact. HEAD, EARS, NOSE, THROAT: Moist buccal mucosa. Head is atraumatic, normocephalic. Hears conversational speech. No nasal drainage. NECK: Supple. No JV distention. No thyroidomegaly. RESPIRATORY: Non-labored respirations and equal bilateral excursions. No gross wheezes. CARDIOVASCULAR: Palpable 2+ radial pulses. ABDOMEN: Nontender nondistended. LYMPH: No neck lymphadenopathy. MUSCULOSKELETAL: No clubbing cyanosis or edema SKIN: Warm and well perfused with good skin turgor. NEUROLOGIC: Cranial nerves II through XII grossly intact. No focal or lateralizing signs. PSYCH: Appropriate affect. Alert and oriented to person, place and time. Displays appropriate insight. CLINCAL LABS: Reviewed. White count on admission 3.8 elevated 12.6. Hemoglobin normal. IMAGING: Independently reviewed. CT chest independently reviewed demonstrates grade 4 paraesophageal hiatal hernia involving stomach including portion of bowel. Stomach is completely intrathoracic. This is my independent interpretation. STUDIES: Modified barium swallow independently reviewed demonstrate moderate to severe presbyesophagus. Large paraesophageal hiatal hernia also confirmed. Presence of short esophagus identified. This is my independent interpretation. RADIOLOGY: Report reviewed. CT chest demonstrates paraesophageal hiatal hernia involving majority of left lung. No pulmonary embolism. Cardiomegaly. Swallow study confirms intrathoracic stomach. ASSESSMENT: 1. Intrathoracic paraesophageal hernia, symptomatic 2. Atrial fibrillation with rapid ventricular sponsor 3. Hypertensive cardiomyopathy with congestive heart failure 4. Presbyesophagus with dysphagia PLAN: 1. Due to findings of completely intrathoracic grade 4 hiatal hernia, cardiothoracic surgery has been consulted 2. Hold long-acting blood thinners due to possible surgical invention 3. Cardiac risk assessment in process CODE STATUS in chart ADVANCE DIRECTIVE: Thank you for this kind consultation. Past Medical History Past Medical History: Atrial Fibrillation, Hypertension, Prostate Disorder History of Any Multi-Drug Resistant Organisms: None Reported Past Surgical History: Appendectomy Additional Past Surgical History / Comment(s): L sided basal cell carcinoma removed from L ear, Smoking Status: Never smoker - Past Family History Mother Family Medical History: CVA/TIA Father Family Medical History: Myocardial Infarction (DC) Medications and Allergies Home Medications Medication Instructions Recorded Confirmed Type Tamsulosin HCl [Flomax] 0.4 mg PO BID 11/25/14 11/09/23 History Finasteride [Proscar] 5 mg PO DAILY 11/11/15 11/09/23 History Lovastatin [Mevacor] 40 mg PO HS 11/11/15 11/09/23 History amLODIPine BESYLATE/BENAZEPRIL 1 cap PO BID 11/11/15 11/09/23 History [Lotrel 5-20 MG] Apixaban [Eliquis] 2.5 mg PO BID 11/09/23 11/09/23 History Aspirin EC [Ecotrin Low Dose] 81 mg PO DAILY 11/09/23 11/09/23 History Calcium 1000mg 1,000 mg PO DAILY 11/09/23 11/09/23 History Cholecalciferol [Vitamin D3 (25 25 mcg PO DAILY 11/09/23 11/09/23 History Mcg = 1000 Iu)] Famotidine [Pepcid] 40 mg PO BID 11/09/23 11/09/23 History Hydrocortisone Cream 1 applic TOPICAL BID PRN 11/09/23 11/09/23 History [Hydrocortisone 2.5% Cream] Ibandronate Sodium [Boniva] 150 mg PO Q30D 11/09/23 11/09/23 History Msm(Unknown Dose) 1 tab PO DAILY 11/09/23 11/09/23 History Multivitamins, Thera [Multivitamin 1 tab PO DAILY 11/09/23 11/09/23 History (formulary)] Vitamin C(Unknown Dose) 1 tab PO DAILY 11/09/23 11/09/23 History polyethylene glycoL 3350 [Miralax] 17 gm PO DAILY 11/09/23 11/09/23 History Allergies Allergy/AdvReac Type Severity Reaction Status Date / Time No Known Allergies Allergy Verified 11/09/23 16:26 Surgical - Exam Vital Signs Temp Pulse Resp BP Pulse Ox 100.7 F H 105 H 17 109/59 67 L 11/09/23 13:15 11/09/23 13:15 11/09/23 13:15 11/09/23 13:15 11/09/23 13:15 Results - Labs 11/11/23 07:22 11/11/23 07:45 Abnormal Lab Results - Last 24 Hours (Table) 11/09/23 11/09/23 11/09/23 Range/Units 13:23 13:23 13:23 Plt Count 94 L (150-450) k/uL Lymphocytes # (Manual) 0.15 L (1.0-4.8) k/uL APTT 21.8 L (22.0-30.0) sec ABG pH (7.35-7.45) ABG pCO2 (35-45) mmHg ABG pO2 (83-108) mmHg ABG HCO3 (21-25) mmol/L ABG Total CO2 (19-24) mmol/L ABG O2 Saturation (94-97) % Calcium 7.8 L (8.4-10.2) mg/dL Total Protein 5.4 L (6.3-8.2) g/dL Albumin 3.0 L (3.5-5.0) g/dL Urine Blood (Negative) Ur Leukocyte Esterase (Negative) Urine RBC (0-5) /hpf Urine WBC (0-5) /hpf Urine Bacteria (None) /hpf Urine Mucus (None) /hpf 11/09/23 11/09/23 11/09/23 Range/Units 13:28 14:08 17:57 Plt Count (150-450) k/uL Lymphocytes # (Manual) (1.0-4.8) k/uL APTT (22.0-30.0) sec ABG pH 7.32 L (7.35-7.45) ABG pCO2 52 H 56 H (35-45) mmHg ABG pO2 68 L 80 L (83-108) mmHg ABG HCO3 29 H 29 H (21-25) mmol/L ABG Total CO2 31 H (19-24) mmol/L ABG O2 Saturation 93.0 L (94-97) % Calcium (8.4-10.2) mg/dL Total Protein (6.3-8.2) g/dL Albumin (3.5-5.0) g/dL Urine Blood Moderate H (Negative) Ur Leukocyte Esterase Moderate H (Negative) Urine RBC >182 H (0-5) /hpf Urine WBC 16 H (0-5) /hpf Urine Bacteria Rare H (None) /hpf Urine Mucus Rare H (None) /hpf 11/10/23 Range/Units 10:59 Plt Count (150-450) k/uL Lymphocytes # (Manual) (1.0-4.8) k/uL APTT (22.0-30.0) sec ABG pH (7.35-7.45) ABG pCO2 (35-45) mmHg ABG pO2 (83-108) mmHg ABG HCO3 (21-25) mmol/L ABG Total CO2 (19-24) mmol/L ABG O2 Saturation (94-97) % Calcium (8.4-10.2) mg/dL Total Protein (6.3-8.2) g/dL Albumin (3.5-5.0) g/dL Urine Blood (Negative) Ur Leukocyte Esterase Moderate H (Negative) Urine RBC (0-5) /hpf Urine WBC 43 H (0-5) /hpf Urine Bacteria (None) /hpf Urine Mucus Rare H (None) /hpf Diabetes panel 11/09/23 Range/Units 13:23 Sodium 137 (137-145) mmol/L Potassium 3.7 (3.5-5.1) mmol/L Chloride 106 (98-107) mmol/L Carbon Dioxide 25 (22-30) mmol/L BUN 18 (9-20) mg/dL Creatinine 0.93 (0.66-1.25) mg/dL Glucose 95 (74-99) mg/dL Calcium 7.8 L (8.4-10.2) mg/dL AST 23 (17-59) U/L ALT 15 (4-49) U/L Alkaline Phosphatase 60 (38-126) U/L Total Protein 5.4 L (6.3-8.2) g/dL Albumin 3.0 L (3.5-5.0) g/dL Calcium panel 11/09/23 Range/Units 13:23 Calcium 7.8 L (8.4-10.2) mg/dL Albumin 3.0 L (3.5-5.0) g/dL Pituitary panel 11/09/23 Range/Units 13:23 Sodium 137 (137-145) mmol/L Potassium 3.7 (3.5-5.1) mmol/L Chloride 106 (98-107) mmol/L Carbon Dioxide 25 (22-30) mmol/L BUN 18 (9-20) mg/dL Creatinine 0.93 (0.66-1.25) mg/dL Glucose 95 (74-99) mg/dL Calcium 7.8 L (8.4-10.2) mg/dL Adrenal panel 11/09/23 Range/Units 13:23 Sodium 137 (137-145) mmol/L Potassium 3.7 (3.5-5.1) mmol/L Chloride 106 (98-107) mmol/L Carbon Dioxide 25 (22-30) mmol/L BUN 18 (9-20) mg/dL Creatinine 0.93 (0.66-1.25) mg/dL Glucose 95 (74-99) mg/dL Calcium 7.8 L (8.4-10.2) mg/dL Total Bilirubin 0.9 (0.2-1.3) mg/dL AST 23 (17-59) U/L ALT 15 (4-49) U/L Alkaline Phosphatase 60 (38-126) U/L Total Protein 5.4 L (6.3-8.2) g/dL Albumin 3.0 L (3.5-5.0) g/dL
[2023-11-10] MEDS: ALPRAZolam 0.5 MG TAB PO PRN (17:43)
--- NOTE | 2023-11-10 17:57 | P.GSCN ---
History of Present Illness Consult date: 11/10/23 Reason for Consult: Large hiatal hernia Requesting physician: Harmony Freitas History of present illness: This is an 88-year-old gentleman who follows on an outpatient basis with Dr. Hugh Walter for his primary care service. He has a past medical history significant for hypertension, hyperlipidemia, benign prostatic hypertrophy, remote history of nicotine dependence in which she quit smoking in 1969, atrial fibrillation on Eliquis as an outpatient basis for anticoagulation, occasional constipation, hard of hearing and history of UTIs. He presented to the emergency department here at [facility] on November 09, 2023 with complaints of increased shortness of breath, felt like he was having a panic attack and felt his heart racing. The patient denies any recent fever, chills, nausea, vomiting, headache, hemoptysis, hematemesis, chest pain, chest pressure, presyncope or syncope. While in the emergency department he was found to be hypoxic and was placed on BiPAP with an FiO2 of 100%. Currently he is on 4 L nasal cannula oxygen with oxygen saturations 94%. Also on admission the patient had a low-grade fever of 100.7 F. A chest x-ray was completed which demonstrated an elevated hemidiaphragm on the left with bilateral lower lobe infiltrate. A twelve-lead EKG was completed which demonstrated atrial flutter with a heart rate of 88 bpm. For further evaluation a CT chest angio for PE protocol was completed which demonstrated no evidence of pulmonary embolism, a large hiatal hernia containing the stomach taking a majority of the left lung, low lung volumes with basilar atelectasis, and mild cardiomegaly with mild coronary artery atherosclerosis. Due to the findings on the CT of the chest the patient underwent a barium swallow today which showed esophageal dysmotility with a large hiatal hernia with stomach in the thorax as seen on the CT of the chest. Subsequently, due to the findings of a large hiatal hernia a consult was placed to Dr. Jose Luis Landa from cardiothoracic surgery for further evaluation and treatment recommendations. Review of Systems A 14 point review of systems was completed and was negative except as mentioned in the HPI. Past Medical History Past Medical History: Atrial Fibrillation, Hyperlipidemia, Hypertension, Prostate Disorder History of Any Multi-Drug Resistant Organisms: None Reported Past Surgical History: Appendectomy Additional Past Surgical History / Comment(s): L sided basal cell carcinoma re moved from L ear, eyelid lift surgery. Past Anesthesia/Blood Transfusion Reactions: No Reported Reaction Past Psychological History: No Psychological Hx Reported Smoking Status: Former smoker (Quit smoking in 1969) Past Alcohol Use History: Daily (Drinks 1 alcoholic drink per day) Past Drug Use History: None Reported - Past Family History Mother Family Medical History: CVA/TIA Father Family Medical History: Myocardial Infarction ([place]) Medications and Allergies Home Medications Medication Instructions Recorded Confirmed Type Tamsulosin HCl [Flomax] 0.4 mg PO BID 11/25/14 11/09/23 History Finasteride [Proscar] 5 mg PO DAILY 11/11/15 11/09/23 History Lovastatin [Mevacor] 40 mg PO HS 11/11/15 11/09/23 History amLODIPine BESYLATE/BENAZEPRIL 1 cap PO BID 11/11/15 11/09/23 History [Lotrel 5-20 MG] Apixaban [Eliquis] 2.5 mg PO BID 11/09/23 11/09/23 History Aspirin EC [Ecotrin Low Dose] 81 mg PO DAILY 11/09/23 11/09/23 History Calcium 1000mg 1,000 mg PO DAILY 11/09/23 11/09/23 History Cholecalciferol [Vitamin D3 (25 25 mcg PO DAILY 11/09/23 11/09/23 History Mcg = 1000 Iu)] Famotidine [Pepcid] 40 mg PO BID 11/09/23 11/09/23 History Hydrocortisone Cream 1 applic TOPICAL BID PRN 11/09/23 11/09/23 History [Hydrocortisone 2.5% Cream] Ibandronate Sodium [Boniva] 150 mg PO Q30D 11/09/23 11/09/23 History Msm(Unknown Dose) 1 tab PO DAILY 11/09/23 11/09/23 History Multivitamins, Thera [Multivitamin 1 tab PO DAILY 11/09/23 11/09/23 History (formulary)] Vitamin C(Unknown Dose) 1 tab PO DAILY 11/09/23 11/09/23 History polyethylene glycoL 3350 [Miralax] 17 gm PO DAILY 11/09/23 11/09/23 History Allergies Allergy/AdvReac Type Severity Reaction Status Date / Time No Known Allergies Allergy Verified 11/09/23 16:26 Surgical - Exam Vital Signs Temp Pulse Resp BP Pulse Ox 100.7 F H 105 H 17 109/59 67 L 11/09/23 13:15 11/09/23 13:15 11/09/23 13:15 11/09/23 13:15 11/09/23 13:15 - General well developed, well nourished, no distress, no pain, obese - Eyes PERRL, normal ocular movement, no pale, no icteric - ENT normal pinna, normal nares, normal mucosa, no congestion, decreased hearing - Neck Neck is supple, no lymph adenopathy no masses, no bruits, trachea midline, no venous distension - Respiratory Lungs essentially clear throughout, diminished to his left lower lobe. No wheezes, rhonchi or crackles. Respirations are symmetrical and nonlabored. Oxygen saturations 94% on 4 L nasal cannula. - Cardiovascular Irregular heart rhythm with controlled rate. S1 and S2 present, negative for S3, gallop or murmur. - Abdomen Abdomen is soft, nontender nondistended. Active bowel sounds present all 4 abdominal quadrants. No guarding rigidity. No organomegaly appreciated. - Genitourinary Deferred - Rectum Deferred - Integumentary Skin is warm and dry. No clubbing or cyanosis is present. no rash, no growths, no abnormal pigmentation - Neurologic Cranial nerves II through XII intact. No focal deficits. normal coordination, normal sensation - Musculoskeletal Moves all 4 extremities with equal strength bilateral. - Psychiatric oriented to time, oriented to person, oriented to place, speech is normal, memory intact Results - Labs 11/11/23 07:22 11/11/23 07:45 Abnormal Lab Results - Last 24 Hours (Table) 11/09/23 11/10/23 Range/Units 17:57 10:59 ABG pH 7.32 L (7.35-7.45) ABG pCO2 56 H (35-45) mmHg ABG pO2 80 L (83-108) mmHg ABG HCO3 29 H (21-25) mmol/L ABG Total CO2 31 H (19-24) mmol/L Ur Leukocyte Esterase Moderate H (Negative) Urine WBC 43 H (0-5) /hpf Urine Mucus Rare H (None) /hpf Microbiology - Last 24 Hours (Table) 11/09/23 13:28 Blood Culture - Preliminary Blood - Imaging Chest x-ray: report reviewed, image reviewed CT scan - chest: report reviewed, image reviewed Assessment and Plan Assessment: Large hiatal hernia occupying the majority of the left hemithorax on CT scan Acute hypoxic/hypercapnic respiratory failure, currently on 4 L nasal cannula Shortness of breath, secondary to above, acute Paroxysmal atrial fibrillation with RVR, on Eliquis for anticoagulation as an outpatient Hypertension Hyperlipidemia Benign prostatic hypertrophy History of skin cancer in the form of basal cell carcinoma resected to his left earlobe Remote history of nicotine dependence, quit smoking in 1969 Plan: The patient was seen and examined at his bedside on the third floor cardiac stepdown unit. His chart and diagnostics were reviewed. His case was discussed in detail with Dr. Landa from cardiothoracic surgery. At this time the patient is not a candidate for hiatal hernia surgery and would likely benefit from a gastropexy surgery. This was discussed with the patient and the general surgery PA. Medical management other comorbidities per primary care service and other consultants. Please contact cardiothoracic surgery for any further recommendations regarding the hiatal hernia. Thank you for this consult. I have personally seen and examined the patient, performed the documentation and the assessment and plan as written. Number of minutes spent on the visit: 30. DANIAL Cr Attending Addendum: Pt seen and evaluated with STITCH MARKER above. Agree with his assessment and plan. This is an 88 y/o M admitted with failure to thrive. 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 Recommend gastropexy this admission. We will continue to follow. I spent 35min reviewing the data and discussing findings with the team. Time with Patient: Greater than 30
[2023-11-10 18:06] LABS: Basophils % (A) 0 %; Eosinophils # (A) 0.1 k/uL (0-0.7); Eosinophils % (A) 1 %; HCT 47.7 % (39.0-53.0); HGB 15.2 gm/dL (13.0-17.5); Lymphocytes # (A) 1.1 k/uL (1.0-4.8); Lymphocytes % (A) 8 %; MCH 32.5 pg (25.0-35.0); MCHC 31.8 g/dL (31.0-37.0); MCV 102.3 fL (80.0-100.0); Macrocytosis Slight; Mean Platelet Volume 8.1; Monocytes # (A) 0.7 k/uL (0-1.0); Monocytes % (A) 5 %; Neutrophils # (A) 10.5 k/uL (1.3-7.7); Neutrophils % (A) 84 %; RBC 4.66 m/uL (4.30-5.90); RDW 13.4 % (11.5-15.5); WBC 12.6 k/uL (3.8-10.6)
[2023-11-10 18:16] LABS: ALT 19 U/L (4-49); AST 29 U/L (17-59); African American GFR (CKD) 53 (>60 ml/min/1.73 sqM); Albumin 3.5 g/dL (3.5-5.0); Alkaline Phosphatase 62 U/L (38-126); Anion Gap 4 mmol/L; Blood Urea Nitrogen 29 mg/dL (9-20); Calcium 7.9 mg/dL (8.4-10.2); Carbon Dioxide 30 mmol/L (22-30); Chloride 104 mmol/L (98-107); Glucose 90 mg/dL (74-99); Non-African American GFR(CKD) 46 (>60 ml/min/1.73 sqM); Potassium 4.3 mmol/L (3.5-5.1); Sodium 138 mmol/L (137-145); Total Protein 6.1 g/dL (6.3-8.2)
[2023-11-10 18:20] LABS: Platelet Count 79 k/uL (150-450)
[2023-11-10] MEDS: ATORVASTATIN 10 MG TAB PO SCH (20:33)
[2023-11-11 00:11] LABS: Glucose,Whole Blood 101 mg/dL (70-110)
[2023-11-11 06:08] LABS: Glucose,Whole Blood 91 mg/dL (70-110)
[2023-11-11 08:07] LABS: HCT 42.8 % (39.0-53.0); HGB 13.8 gm/dL (13.0-17.5); MCH 32.8 pg (25.0-35.0); MCHC 32.3 g/dL (31.0-37.0); MCV 101.6 fL (80.0-100.0); Macrocytosis Slight; Mean Platelet Volume 8.2; Platelet Count 100 k/uL (150-450); RBC 4.21 m/uL (4.30-5.90); RDW 13.9 % (11.5-15.5); WBC 10.6 k/uL (3.8-10.6)
--- NOTE | 2023-11-11 08:18 | P.PN ---
Progress Note - Text Progress Note Date: 11/11/23 Due to surgical complexity of case, second opinion being sought additional provider.
[2023-11-11 08:28] LABS: African American GFR (CKD) 72 (>60 ml/min/1.73 sqM); Anion Gap 5 mmol/L; Blood Urea Nitrogen 25 mg/dL (9-20); Calcium 7.5 mg/dL (8.4-10.2); Carbon Dioxide 29 mmol/L (22-30); Chloride 104 mmol/L (98-107); Glucose 85 mg/dL (74-99); Magnesium 2.1 mg/dL (1.6-2.3); Non-African American GFR(CKD) 62 (>60 ml/min/1.73 sqM); Sodium 138 mmol/L (137-145)
--- NOTE | 2023-11-11 09:02 | P.PN ---
Subjective Progress Note Date: 11/11/23 Principal diagnosis: Large hiatal hernia. Past medical history significant for hypertension, hyperlipidemia, benign prostatic hypertrophy, remote history of nicotine dependence in which she quit smoking in 1969, atrial fibrillation on Eliquis as an outpatient basis for anticoagulation, occasional constipation, hard of hearing and history of UTIs. The patient was seen and examined at his bedside in follow-up today November 11, 2023 on the third floor cardiac stepdown unit., Currently the patient is laying in bed, is awake, alert, oriented x 3 and is in no acute apparent distress. Oxygen saturations are 94% on 4 L nasal cannula. Remote telemetry showing atrial flutter heart rate [address] Landa met with the patient this morning, discussed treatment options including robotic assisted laparoscopy with gastropexy, G-tube placement and EGD for Wednesday, November 15, 2023 to be performed by Dr. Landa. Risks and benefits of surgery were discussed with the patient and knowing and understanding the risks the patient wished to proceed with the surgical procedure. Laboratory results reviewed. Objective - Vital Signs Vital signs: Vital Signs Temp 98.3 F 11/11/23 04:00 Pulse 80 11/11/23 04:00 Resp 20 11/11/23 04:00 BP 104/59 11/11/23 04:00 Pulse Ox 94 L 11/11/23 04:00 FiO2 80 11/10/23 03:50 Intake & Output 11/10/23 11/11/23 11/11/23 18:59 06:59 18:59 Intake Total 590 0 Output Total 650 1000 Balance -60 -1000 Weight 77.5 kg Intake: Oral 590 0 Output: Urine 650 1000 Other: Voiding Method Urinal Urinal # Voids 1 - Exam CONSTITUTIONAL: Appears comfortable, cooperative, no apparent acute distress. HEENT: Neck is supple, no JVD, no lymphadenopathy. RESPIRATORY: Lungs sounds essentially clear throughout, diminished to his left lower lobe. Respirations are symmetrical and nonlabored. Currently on 4 L nasal cannula with oxygen saturations 94%. CARDIOVASCULAR: Irregular rhythm and controlled rate. S1 and S2 present, negative for S3, gallop or murmur. He can hide alert GASTROINTESTINAL: Abdomen soft, nontender, nondistended. Active bowel sounds present 4 quadrants. Passing flatus. No guarding or rigidity. GENITOURINARY: Continues to void. INTEGUMENTARY: Skin is warm and dry with no evidence of clubbing or cyanosis. NEUROLOGIC: Cranial nerves II through XII intact. No focal deficits. MUSKULOSKELETAL: Able to move all extremities, strength equal bilaterally. PSYCHIATRIC: Alert and oriented to person place and time, appropriate affect, intact judgment and insight. - Allied health notes Allied health notes reviewed: nursing - Labs CBC & Chem 7: 11/11/23 07:22 11/10/23 17:25 Labs: Abnormal Lab Results - Last 24 Hours (Table) 11/10/23 11/10/23 11/10/23 Range/Units 10:59 17:25 17:25 WBC 12.6 H (3.8-10.6) k/uL RBC (4.30-5.90) m/uL MCV 102.3 H (80.0-100.0) fL Plt Count 79 L (150-450) k/uL Neutrophils # 10.5 H (1.3-7.7) k/uL BUN 29 H (9-20) mg/dL Creatinine 1.35 H (0.66-1.25) mg/dL Calcium 7.9 L (8.4-10.2) mg/dL Total Protein 6.1 L (6.3-8.2) g/dL Ur Leukocyte Esterase Moderate H (Negative) Urine WBC 43 H (0-5) /hpf Urine Mucus Rare H (None) /hpf 11/11/23 Range/Units 07:22 WBC (3.8-10.6) k/uL RBC 4.21 L (4.30-5.90) m/uL MCV 101.6 H (80.0-100.0) fL Plt Count 100 L (150-450) k/uL Neutrophils # (1.3-7.7) k/uL BUN (9-20) mg/dL Creatinine (0.66-1.25) mg/dL Calcium (8.4-10.2) mg/dL Total Protein (6.3-8.2) g/dL Ur Leukocyte Esterase (Negative) Urine WBC (0-5) /hpf Urine Mucus (None) /hpf Microbiology - Last 24 Hours (Table) 11/09/23 13:28 Blood Culture - Preliminary Blood 11/09/23 13:28 Blood Culture - Preliminary Blood Assessment and Plan Assessment: Large hiatal hernia occupying the majority of the left hemithorax on CT scan Acute hypoxic/hypercapnic respiratory failure, currently on 4 L nasal cannula Shortness of breath, secondary to above, acute Paroxysmal atrial fibrillation with RVR, on Eliquis for anticoagulation as an outpatient Hypertension Hyperlipidemia Benign prostatic hypertrophy History of skin cancer in the form of basal cell carcinoma resected to his left earlobe Remote history of nicotine dependence, quit smoking in 1969 Plan: The patient will be scheduled for robotic assisted laparoscopy with gastropexy, G-tube placement and EGD for Wednesday, November 15, 2023 to be performed by Dr. Landa. N.p.o. after midnight on November 15, 2023. Incentive spirometry ordered, encourage use of incentive spirometry 10 times every hour while awake. Medical management and other comorbidities per primary care service. Eliquis was placed on hold in anticipation for surgery on Wednesday. More recommendations to follow based on patient's clinical course.
[2023-11-11 09:13] LABS: Potassium 3.8 mmol/L (3.5-5.1)
[2023-11-11] MEDS: FAMOTIDINE 20 MG TAB PO SCH (09:24)
[2023-11-11 11:22] LABS: Glucose,Whole Blood 138 mg/dL (70-110)
[2023-11-11] MEDS ORDERED: CAFFEINE CITRATE 60 MG/3 ML VIAL IV PRN (11:43)
--- NOTE | 2023-11-11 13:33 | P.GSCN ---
History of Present Illness Consult date: 11/11/23 History of present illness: CHIEF COMPLAINT: Shortness of breath HISTORY OF PRESENT ILLNESS: This is a 88-year-old male who presented with worsening shortness of breath and racing heart. He was found to have evidence of A-fib with RVR, UTI and CHF exacerbation. Patient had a CTA of the chest to rule out PE. There was no evidence of PE but did report a large hiatal hernia containing stomach and a major portion of the left lung. Patient reports he has had a hiatal hernia for about 20 years and within the last year it had increased in size and it was noted is a large hiatal hernia. Patient reports that he was told just to monitor the hiatal hernia. Patient denies any nausea or vomiting or heartburn. He does admit to having shortness of breath as well as coughing. Patient reports difficulty with swallowing both solids and liquids. Patient had modified barium swallow completed that reported esophageal dysmotility with large hiatal hernia with the stomach in the thorax. Dr. Craig consulted for second opinion regarding hiatal hernia. Patient seen and evaluated also by cardiothoracic service. PAST MEDICAL HISTORY: Atrial Fibrillation, Hypertension, Prostate Disorder, hiatal hernia PAST SURGICAL HISTORY: Appendectomy MEDICATIONS: See below ALLERGIES: See below SOCIAL HISTORY: No illicit drug use. REVIEW OF SYSTEMS: CONSTITUTIONAL: Denies fever or chills. HEENT: Denies blurred vision, vision changes, or eye pain. Denies hemoptysis CARDIOVASCULAR: Denies chest pain or pressure. RESPIRATORY: No shortness of breath. GASTROINTESTINAL: See HPI for pertinent findings HEMATOLOGIC: Denies bleeding disorders. GENITOURINARY: Denies any blood in urine or increased urinary frequency. SKIN: Denies pruitis. Denies rash. PHYSICAL EXAM: VITAL SIGNS: Reviewed GENERAL: Well-developed in no acute distress. HEENT: No sclera icterus. Extraocular movements grossly intact. Moist buccal mucosa. Head is atraumatic, normocephalic. No nasal drainage. ABDOMEN: Soft. Nondistended. Tenderness with palpation to right lower quadrant. NEUROLOGIC: Alert and oriented. Cranial nerves II through XII grossly intact. LABORATORY DATA: WBC 12 0.6 out of 10.6 Hgb 13.8 platelets 100 Sodium is 138 potassium 3.8 creatinine 1.06 IMAGING: Chest CTA shows no evidence of pulmonary embolism. Large hiatal hernia containing stomach taking the majority of the left lung. Low lung volumes with basilar atelectasis. Cardiomegaly and coronary artery arthrosclerosis ASSESSMENT: 1. Large hiatal hernia containing stomach and majority of the left lung PLAN: -Further recommendations forthcoming per Dr. Craig -Continue clear liquid diet Physician Drafter Electronic note has been reviewed by physician. Signing provider agrees with the documented findings, assessment, and plan of care. Past Medical History Past Medical History: Atrial Fibrillation, Hyperlipidemia, Hypertension, Prostate Disorder History of Any Multi-Drug Resistant Organisms: None Reported Past Surgical History: Appendectomy Additional Past Surgical History / Comment(s): L sided basal cell carcinoma removed from L ear, eyelid lift surgery. Past Anesthesia/Blood Transfusion Reactions: No Reported Reaction Past Psychological History: No Psychological Hx Reported Smoking Status: Former smoker (Quit smoking in 1969) Past Alcohol Use History: Daily (Drinks 1 alcoholic drink per day) Past Drug Use History: None Reported - Past Family History Mother Family Medical History: CVA/TIA Father Family Medical History: Myocardial Infarction ([place]) Medications and Allergies Home Medications Medication Instructions Recorded Confirmed Type Tamsulosin HCl [Flomax] 0.4 mg PO BID 11/25/14 11/09/23 History Finasteride [Proscar] 5 mg PO DAILY 11/11/15 11/09/23 History Lovastatin [Mevacor] 40 mg PO HS 11/11/15 11/09/23 History amLODIPine BESYLATE/BENAZEPRIL 1 cap PO BID 11/11/15 11/09/23 History [Lotrel 5-20 MG] Apixaban [Eliquis] 2.5 mg PO BID 11/09/23 11/09/23 History Aspirin EC [Ecotrin Low Dose] 81 mg PO DAILY 11/09/23 11/09/23 History Calcium 1000mg 1,000 mg PO DAILY 11/09/23 11/09/23 History Cholecalciferol [Vitamin D3 (25 25 mcg PO DAILY 11/09/23 11/09/23 History Mcg = 1000 Iu)] Famotidine [Pepcid] 40 mg PO BID 11/09/23 11/09/23 History Hydrocortisone Cream 1 applic TOPICAL BID PRN 11/09/23 11/09/23 History [Hydrocortisone 2.5% Cream] Ibandronate Sodium [Boniva] 150 mg PO Q30D 11/09/23 11/09/23 History Msm(Unknown Dose) 1 tab PO DAILY 11/09/23 11/09/23 History Multivitamins, Thera [Multivitamin 1 tab PO DAILY 11/09/23 11/09/23 History (formulary)] Vitamin C(Unknown Dose) 1 tab PO DAILY 11/09/23 11/09/23 History polyethylene glycoL 3350 [Miralax] 17 gm PO DAILY 11/09/23 11/09/23 History Allergies Allergy/AdvReac Type Severity Reaction Status Date / Time No Known Allergies Allergy Verified 11/09/23 16:26 Surgical - Exam Vital Signs Temp Pulse Resp BP Pulse Ox 100.7 F H 105 H 17 109/59 67 L 11/09/23 13:15 11/09/23 13:15 11/09/23 13:15 11/09/23 13:15 11/09/23 13:15 Results - Labs 11/11/23 07:22 11/11/23 07:45 Abnormal Lab Results - Last 24 Hours (Table) 11/10/23 11/10/23 11/10/23 Range/Units 10:59 17:25 17:25 WBC 12.6 H (3.8-10.6) k/uL RBC (4.30-5.90) m/uL MCV 102.3 H (80.0-100.0) fL Plt Count 79 L (150-450) k/uL Neutrophils # 10.5 H (1.3-7.7) k/uL BUN 29 H (9-20) mg/dL Creatinine 1.35 H (0.66-1.25) mg/dL Calcium 7.9 L (8.4-10.2) mg/dL Total Protein 6.1 L (6.3-8.2) g/dL Ur Leukocyte Esterase Moderate H (Negative) Urine WBC 43 H (0-5) /hpf Urine Mucus Rare H (None) /hpf 11/11/23 11/11/23 Range/Units 07:22 07:45 WBC (3.8-10.6) k/uL RBC 4.21 L (4.30-5.90) m/uL MCV 101.6 H (80.0-100.0) fL Plt Count 100 L (150-450) k/uL Neutrophils # (1.3-7.7) k/uL BUN 25 H (9-20) mg/dL Creatinine (0.66-1.25) mg/dL Calcium 7.5 L (8.4-10.2) mg/dL Total Protein (6.3-8.2) g/dL Ur Leukocyte Esterase (Negative) Urine WBC (0-5) /hpf Urine Mucus (None) /hpf Microbiology - Last 24 Hours (Table) 11/09/23 13:28 Blood Culture - Preliminary Blood 11/09/23 13:28 Blood Culture - Preliminary Blood Diabetes panel 11/10/23 11/11/23 Range/Units 17:25 07:45 Sodium 138 138 (137-145) mmol/L Potassium 4.3 3.8 (3.5-5.1) mmol/L Chloride 104 104 (98-107) mmol/L Carbon Dioxide 30 29 (22-30) mmol/L BUN 29 H 25 H (9-20) mg/dL Creatinine 1.35 H 1.06 (0.66-1.25) mg/dL Glucose 90 85 (74-99) mg/dL Calcium 7.9 L 7.5 L (8.4-10.2) mg/dL AST 29 (17-59) U/L ALT 19 (4-49) U/L Alkaline Phosphatase 62 (38-126) U/L Total Protein 6.1 L (6.3-8.2) g/dL Albumin 3.5 (3.5-5.0) g/dL Calcium panel 11/10/23 11/11/23 Range/Units 17:25 07:45 Calcium 7.9 L 7.5 L (8.4-10.2) mg/dL Albumin 3.5 (3.5-5.0) g/dL Pituitary panel 11/10/23 11/11/23 Range/Units 17:25 07:45 Sodium 138 138 (137-145) mmol/L Potassium 4.3 3.8 (3.5-5.1) mmol/L Chloride 104 104 (98-107) mmol/L Carbon Dioxide 30 29 (22-30) mmol/L BUN 29 H 25 H (9-20) mg/dL Creatinine 1.35 H 1.06 (0.66-1.25) mg/dL Glucose 90 85 (74-99) mg/dL Calcium 7.9 L 7.5 L (8.4-10.2) mg/dL Adrenal panel 11/10/23 11/11/23 Range/Units 17:25 07:45 Sodium 138 138 (137-145) mmol/L Potassium 4.3 3.8 (3.5-5.1) mmol/L Chloride 104 104 (98-107) mmol/L Carbon Dioxide 30 29 (22-30) mmol/L BUN 29 H 25 H (9-20) mg/dL Creatinine 1.35 H 1.06 (0.66-1.25) mg/dL Glucose 90 85 (74-99) mg/dL Calcium 7.9 L 7.5 L (8.4-10.2) mg/dL Total Bilirubin 1.0 (0.2-1.3) mg/dL AST 29 (17-59) U/L ALT 19 (4-49) U/L Alkaline Phosphatase 62 (38-126) U/L Total Protein 6.1 L (6.3-8.2) g/dL Albumin 3.5 (3.5-5.0) g/dL
--- NOTE | 2023-11-11 13:37 | P.PN ---
Subjective Progress Note Date: 11/11/23 CHIEF COMPLAINT: Large hiatal hernia HISTORY OF PRESENT ILLNESS: Patient sitting in bed comfortably. Denies pain. Denies any nausea or vomiting. Denies any heartburn. Patient reports that he is breathing easier. He is requiring less oxygen. Patient evaluated by cardiothoracic team. The recommendations noted. Case discussed with cardiothoracic nurse practitioner. Afebrile. Requiring 3 L of oxygen satting 93%. WBC is down from 12.6-10.6 Hgb 13.8 platelets 100 PHYSICAL EXAM: VITAL SIGNS: Reviewed GENERAL: Well-developed in no acute distress. HEENT: No sclera icterus. Extraocular movements grossly intact. Moist buccal mucosa. Head is atraumatic, normocephalic. Hears conversational speech. No nasal drainage. NECK: Supple without lymphadenopathy. CHEST: Non-labored respirations and equal bilateral excursions. CARDIOVASCULAR: Palpable 2+ radial pulses. ABDOMEN: Soft. Nondistended. Nontender. MUSCULOSKELETAL: No clubbing or cyanosis. NEUROLOGIC: No focal or lateralizing signs. Cranial nerves II through XII grossly intact. PSYCH: Appropriate affect. Alert and oriented to person, place and time. SKIN: Well perfused. Good skin turgor. ASSESSMENT: 1. Symptomatic large hiatal hernia containing stomach and the majority of the left lung 2. Atrial fibrillation with rapid ventricular sponsor 3. Hypertensive cardiomyopathy with congestive heart failure 4. Presbyesophagus with dysphagia PLAN: -Dr. Craig consulted for second opinion regarding the large hiatal hernia -Eliquis currently on hold for possible surgical intervention -Continue clear liquid diet Physician Agriculture Intern note has been reviewed by physician. Signing provider agrees with the documented findings, assessment, and plan of care. As above. Due to complexity of case, second opinion in process. Objective - Vital Signs Vital signs: Vital Signs Temp 98.3 F 11/11/23 04:00 Pulse 76 11/11/23 08:49 Resp 20 11/11/23 04:00 BP 104/59 11/11/23 04:00 Pulse Ox 93 L 11/11/23 08:37 FiO2 80 11/10/23 03:50 Intake & Output 11/10/23 11/11/23 11/11/23 18:59 06:59 18:59 Intake Total 590 0 660 Output Total 650 1000 Balance -60 -1000 660 Weight 77.5 kg Intake: Oral 590 0 660 Output: Urine 650 1000 Other: Voiding Method Urinal Urinal # Voids 1 - Labs CBC & Chem 7: 11/11/23 07:22 11/11/23 07:45 Labs: Abnormal Lab Results - Last 24 Hours (Table) 11/10/23 11/10/23 11/11/23 Range/Units 17:25 17:25 07:22 WBC 12.6 H (3.8-10.6) k/uL RBC 4.21 L (4.30-5.90) m/uL MCV 102.3 H 101.6 H (80.0-100.0) fL Plt Count 79 L 100 L (150-450) k/uL Neutrophils # 10.5 H (1.3-7.7) k/uL BUN 29 H (9-20) mg/dL Creatinine 1.35 H (0.66-1.25) mg/dL POC Glucose (mg/dL) (70-110) mg/dL Calcium 7.9 L (8.4-10.2) mg/dL Total Protein 6.1 L (6.3-8.2) g/dL 11/11/23 11/11/23 Range/Units 07:45 11:17 WBC (3.8-10.6) k/uL RBC (4.30-5.90) m/uL MCV (80.0-100.0) fL Plt Count (150-450) k/uL Neutrophils # (1.3-7.7) k/uL BUN 25 H (9-20) mg/dL Creatinine (0.66-1.25) mg/dL POC Glucose (mg/dL) 138 H (70-110) mg/dL Calcium 7.5 L (8.4-10.2) mg/dL Total Protein (6.3-8.2) g/dL Microbiology - Last 24 Hours (Table) 11/10/23 10:59 Urine Culture - Final Urine,Voided 11/09/23 13:28 Blood Culture - Preliminary Blood 11/09/23 13:28 Blood Culture - Preliminary Blood
--- NOTE | 2023-11-11 13:38 | P.PN ---
Subjective HISTORY OF PRESENT ILLNESS: This is a 88-year-old male with a past medical history significant for atrial flutter, hypertension, and hyperlipidemia. Patient follows in the office with Dr. Salas. We have been asked to see the patient in consultation for hypoxia. Patient examined at the bedside. Patient states he came to the emergency room because his family was concerned about him. He states that he thought he was having a panic attack. He states that his upper extremities were shaking vigorously. He does report having a fever. He denied any chest pain or pressure. He reported having some shortness of breath which is chronic for him. The patient was found to be hypoxic upon arrival to the emergency room and was started on BiPAP. This morning he states his shortness of breath is at his baseline. He is currently on nasal cannula at the time of examination. The patient was also found to be febrile. Patient was diagnosed with a UTI and started on IV antibiotics. The patient has a known history of atrial flutter and is scheduled for an ablation on December 27, [address] Salas DIAGNOSTICS: - EKG reveals atrial flutter with controlled ventricular rate. - Chest xray elevated hemidiaphragm of the left with bilateral lower lobe infiltrate. Correlate for pneumonia.. - Laboratory data: WBC 3.8. Hemoglobin 14.8. Platelet count 94. Sodium 137. Potassium 3.7. BUN 18. Creatinine 0.93. Lactic acid 1.3. Troponin negative x 1. proBNP 541. - Current home cardiac medications include lovastatin 40 mg at night, amlodip ine/benazepril 5-20 mg twice a day, Eliquis 2.5 mg twice a day, aspirin 81 mg daily. 11/11/2023 Patient examined this morning at the bedside. Patient's daughter is present. Patient currently denies any chest pain or pressure. He reports improvement in his shortness of breath. He remains on IV Lasix per pulmonary medicine. Telemetry reveals atrial flutter with controlled ventricular rate. Patient was evaluated by CT surgery and is scheduled to undergo robotic assisted laparoscopy with gastropexy, G-tube placement and EGD for Wednesday, November 15, 2023 to be performed by Dr. Landa. Echocardiogram completed revealing ejection fraction 55 to 60%, mild pulmonary hypertension, trace to mild MR, mild TR. PHYSICAL EXAM: VITAL SIGNS: Reviewed. GENERAL: Well-developed in no acute distress. HEENT: Head is normocephalic. Pupils are equal, round. Sclerae anicteric. Mucous membranes of the mouth are moist. Neck supple. No JVD or thyromegaly LUNGS: Respirations even and unlabored. Lungs essentially clear to auscultation bilaterally. HEART: Regular rate and rhythm. S1 and S2 heard. ABDOMEN: Soft. Nondistended. Nontender. EXTREMITIES: Normal range of motion. No clubbing or cyanosis. Peripheral pulses intact. Minimal lower extremity edema NEUROLOGIC: Awake and alert. Oriented x 3. ASSESSMENT: Acute hypoxic respiratory failure Urinary tract infection Persistent typical atrial flutter with controlled ventricular rate Chronic heart failure with preserved EF, currently appears to be euvolemic, BNP 541 Fever with rigors Hypertension Hyperlipidemia Large hiatal hernia PLAN: Patient's Eliquis has been placed on hold per CT surgery. Continue IV Lasix per pulmonary. May be transitioned to oral diuretics from a cardiology standpoint Continue additional cardiac medications Recommend Lexiscan stress test tomorrow before giving cardiac clearance for surgery Patient scheduled to undergo robotic assisted laparoscopy with gastropexy, G- tube placement and EGD on 11/15/[address] Landa NPO at midnight except medications Patient scheduled for atrial flutter ablation with Dr. Salas on December 27, 2023 Further recommendations pending patient course Nurse practitioner note has been reviewed by physician. Signing provider agrees with the documented findings, assessment, and plan of care documented by [employer] T[employer]OR as a scribe. Objective - Vital Signs Vital signs: Vital Signs Temp 98.3 F 11/11/23 04:00 Pulse 76 11/11/23 08:49 Resp 20 11/11/23 04:00 BP 104/59 11/11/23 04:00 Pulse Ox 93 L 11/11/23 08:37 FiO2 80 11/10/23 03:50 Intake & Output 11/10/23 11/11/23 11/11/23 18:59 06:59 18:59 Intake Total 590 0 660 Output Total 650 1000 Balance -60 -1000 660 Weight 77.5 kg Intake: Oral 590 0 660 Output: Urine 650 1000 Other: Voiding Method Urinal Urinal # Voids 1 - Labs CBC & Chem 7: 11/11/23 07:22 11/11/23 07:45 Labs: Abnormal Lab Results - Last 24 Hours (Table) 11/10/23 11/10/23 11/11/23 Range/Units 17:25 17:25 07:22 WBC 12.6 H (3.8-10.6) k/uL RBC 4.21 L (4.30-5.90) m/uL MCV 102.3 H 101.6 H (80.0-100.0) fL Plt Count 79 L 100 L (150-450) k/uL Neutrophils # 10.5 H (1.3-7.7) k/uL BUN 29 H (9-20) mg/dL Creatinine 1.35 H (0.66-1.25) mg/dL POC Glucose (mg/dL) (70-110) mg/dL Calcium 7.9 L (8.4-10.2) mg/dL Total Protein 6.1 L (6.3-8.2) g/dL 11/11/23 11/11/23 Range/Units 07:45 11:17 WBC (3.8-10.6) k/uL RBC (4.30-5.90) m/uL MCV (80.0-100.0) fL Plt Count (150-450) k/uL Neutrophils # (1.3-7.7) k/uL BUN 25 H (9-20) mg/dL Creatinine (0.66-1.25) mg/dL POC Glucose (mg/dL) 138 H (70-110) mg/dL Calcium 7.5 L (8.4-10.2) mg/dL Total Protein (6.3-8.2) g/dL Microbiology - Last 24 Hours (Table) 11/10/23 10:59 Urine Culture - Final Urine,Voided 11/09/23 13:28 Blood Culture - Preliminary Blood 11/09/23 13:28 Blood Culture - Preliminary Blood
--- NOTE | 2023-11-11 14:52 | P.GSCN ---
History of Present Illness Consult date: 11/11/23 Reason for Consult: Hiatal hernia History of present illness: this is an 88-year-old male who presented to the hospital with complaints of shortness of breath. Patient was worked up found to have atrial fibrillation with flutter and congestive heart failure. Patient underwent CT of the chest to eval for possible pulmonary embolus. His CT scan shows a large hiatal hernia with approximately 50% of his stomach in the left chest space. The patient has had this hiatal hernia for many years. Patient denies any dysphagia or reflux. Patient states that he is able to eat what ever he wants. The patient denies any vomiting or nausea. He has no postprandial pain. The patient weighs 78 kg. He has had no change in his weight over the last 1 year. Past Medical History Past Medical History: Atrial Fibrillation, Hypertension, Prostate Disorder History of Any Multi-Drug Resistant Organisms: None Reported Past Surgical History: Appendectomy Additional Past Surgical History / Comment(s): L sided basal cell carcinoma corwin kel from L ear, Past Anesthesia/Blood Transfusion Reactions: No Reported Reaction Smoking Status: Never smoker - Past Family History Mother Family Medical History: CVA/TIA Father Family Medical History: Myocardial Infarction ([place]) Medications and Allergies Home Medications Medication Instructions Recorded Confirmed Type Tamsulosin HCl [Flomax] 0.4 mg PO BID 11/25/14 11/09/23 History Finasteride [Proscar] 5 mg PO DAILY 11/11/15 11/09/23 History Lovastatin [Mevacor] 40 mg PO HS 11/11/15 11/09/23 History amLODIPine BESYLATE/BENAZEPRIL 1 cap PO BID 11/11/15 11/09/23 History [Lotrel 5-20 MG] Apixaban [Eliquis] 2.5 mg PO BID 11/09/23 11/09/23 History Aspirin EC [Ecotrin Low Dose] 81 mg PO DAILY 11/09/23 11/09/23 History Calcium 1000mg 1,000 mg PO DAILY 11/09/23 11/09/23 History Cholecalciferol [Vitamin D3 (25 25 mcg PO DAILY 11/09/23 11/09/23 History Mcg = 1000 Iu)] Famotidine [Pepcid] 40 mg PO BID 11/09/23 11/09/23 History Hydrocortisone Cream 1 applic TOPICAL BID PRN 11/09/23 11/09/23 History [Hydrocortisone 2.5% Cream] Ibandronate Sodium [Boniva] 150 mg PO Q30D 11/09/23 11/09/23 History Msm(Unknown Dose) 1 tab PO DAILY 11/09/23 11/09/23 History Multivitamins, Thera [Multivitamin 1 tab PO DAILY 11/09/23 11/09/23 History (formulary)] Vitamin C(Unknown Dose) 1 tab PO DAILY 11/09/23 11/09/23 History polyethylene glycoL 3350 [Miralax] 17 gm PO DAILY 11/09/23 11/09/23 History Allergies Allergy/AdvReac Type Severity Reaction Status Date / Time No Known Allergies Allergy Verified 11/09/23 16:26 Surgical - Exam Vital Signs Temp Pulse Resp BP Pulse Ox 100.7 F H 105 H 17 109/59 67 L 11/09/23 13:15 11/09/23 13:15 11/09/23 13:15 11/09/23 13:15 11/09/23 13:15 - General well developed, no distress - Eyes PERRL - ENT normal pinna, normal nares - Neck no masses - Respiratory normal expansion - Cardiovascular Rhythm: regular - Abdomen Abdomen: soft, non tender Results - Labs 11/11/23 07:22 11/11/23 07:45 Abnormal Lab Results - Last 24 Hours (Table) 11/10/23 11/10/23 11/11/23 Range/Units 17:25 17:25 07:22 WBC 12.6 H (3.8-10.6) k/uL RBC 4.21 L (4.30-5.90) m/uL MCV 102.3 H 101.6 H (80.0-100.0) fL Plt Count 79 L 100 L (150-450) k/uL Neutrophils # 10.5 H (1.3-7.7) k/uL BUN 29 H (9-20) mg/dL Creatinine 1.35 H (0.66-1.25) mg/dL POC Glucose (mg/dL) (70-110) mg/dL Calcium 7.9 L (8.4-10.2) mg/dL Total Protein 6.1 L (6.3-8.2) g/dL 11/11/23 11/11/23 Range/Units 07:45 11:17 WBC (3.8-10.6) k/uL RBC (4.30-5.90) m/uL MCV (80.0-100.0) fL Plt Count (150-450) k/uL Neutrophils # (1.3-7.7) k/uL BUN 25 H (9-20) mg/dL Creatinine (0.66-1.25) mg/dL POC Glucose (mg/dL) 138 H (70-110) mg/dL Calcium 7.5 L (8.4-10.2) mg/dL Total Protein (6.3-8.2) g/dL Microbiology - Last 24 Hours (Table) 11/10/23 10:59 Urine Culture - Final Urine,Voided 11/09/23 13:28 Blood Culture - Preliminary Blood 11/09/23 13:28 Blood Culture - Preliminary Blood Diabetes panel 11/10/23 11/11/23 Range/Units 17:25 07:45 Sodium 138 138 (137-145) mmol/L Potassium 4.3 3.8 (3.5-5.1) mmol/L Chloride 104 104 (98-107) mmol/L Carbon Dioxide 30 29 (22-30) mmol/L BUN 29 H 25 H (9-20) mg/dL Creatinine 1.35 H 1.06 (0.66-1.25) mg/dL Glucose 90 85 (74-99) mg/dL Calcium 7.9 L 7.5 L (8.4-10.2) mg/dL AST 29 (17-59) U/L ALT 19 (4-49) U/L Alkaline Phosphatase 62 (38-126) U/L Total Protein 6.1 L (6.3-8.2) g/dL Albumin 3.5 (3.5-5.0) g/dL Calcium panel 11/10/23 11/11/23 Range/Units 17:25 07:45 Calcium 7.9 L 7.5 L (8.4-10.2) mg/dL Albumin 3.5 (3.5-5.0) g/dL Pituitary panel 11/10/23 11/11/23 Range/Units 17:25 07:45 Sodium 138 138 (137-145) mmol/L Potassium 4.3 3.8 (3.5-5.1) mmol/L Chloride 104 104 (98-107) mmol/L Carbon Dioxide 30 29 (22-30) mmol/L BUN 29 H 25 H (9-20) mg/dL Creatinine 1.35 H 1.06 (0.66-1.25) mg/dL Glucose 90 85 (74-99) mg/dL Calcium 7.9 L 7.5 L (8.4-10.2) mg/dL Adrenal panel 11/10/23 11/11/23 Range/Units 17:25 07:45 Sodium 138 138 (137-145) mmol/L Potassium 4.3 3.8 (3.5-5.1) mmol/L Chloride 104 104 (98-107) mmol/L Carbon Dioxide 30 29 (22-30) mmol/L BUN 29 H 25 H (9-20) mg/dL Creatinine 1.35 H 1.06 (0.66-1.25) mg/dL Glucose 90 85 (74-99) mg/dL Calcium 7.9 L 7.5 L (8.4-10.2) mg/dL Total Bilirubin 1.0 (0.2-1.3) mg/dL AST 29 (17-59) U/L ALT 19 (4-49) U/L Alkaline Phosphatase 62 (38-126) U/L Total Protein 6.1 L (6.3-8.2) g/dL Albumin 3.5 (3.5-5.0) g/dL - Imaging CT scan - abdomen: report reviewed CT scan - chest: report reviewed ( CT scan of the chest reviewed. Patient has evidence of a large hiatal hernia extending into the left thorax.) Additional studies: Esophagram upper GI reviewed. There is evidence of a large hiatal hernia with esophageal dysmotility. There is no evidence of obstruction. Assessment and Plan Plan: 88-year-old male with exacerbation of atrial fibrillation flutter with congestive heart failure. The patient has had this hiatal hernia for many y ears. I think that his recent shortness of breath is due to his cardiac issues. The patient should be observed. There is no indication for surgery at this point. The patient has no signs of obstruction. He is not refluxing. The hernia is chronic in nature. There is no risk of volvulus at this point. The patient should be medically optimized if he were to can be considered for surgery. But given the fact that he is 88 and relatively asymptomatic from his hernia I recommend observation. I do not think that a gastric tube and gastropexy will improve the quality of his life. These findings were discussed with the patient and his daughter.
[2023-11-11 16:09] LABS: Prealbumin 14.6 mg/dL (18.0-42.0)
[2023-11-11 16:39] LABS: Glucose,Whole Blood 122 mg/dL (70-110)
--- NOTE | 2023-11-11 17:19 | P.PN ---
Subjective Progress Note Date: 11/11/23 On today's evaluation of the , the patient was taken off the BiPAP and the patient is currently on 8 L of O2 nasal cannula which was further weaned down to 6 L. Current pulse ox is in the order of 95%. Cardiac rhythm is A-fib yet with a controlled rate. Awaiting repeat labs from today.The patient remains on Lasix 20 g IV every 12 hours. The patient remains on anticoagulation with Eliquis 2.5 mg twice a day. He was started with empiric antibiotic coverage and the patient is currently on IV Unasyn and doxycycline. Awake and alert and ommunicating. The patient has no significant dyspnea at rest. On today's evaluation of 11/11/2023, the patient is being seen for a follow-up. The patient is stable on 2 L of oxygen by nasal cannula. No significant respiratory distress. A barium swallow was completed and the patient was found to have some esophageal dysmotility with a large intrathoracic hiatal hernia in place. As such, the patient has undergone various consultation along with gene ral surgery and the patient was evaluated by 2 general surgeons and thoracic surgery. Patient is being considered for gastropexy and a PEG tube insertion. However, the final decision regarding surgical intervention has not been done. The patient's blood work today shows a BUN of 25 with a creatinine 1.06. WBC count of 10.6 with a hemoglobin 13.8 and a platelet count of 100. The patient remains on IV Unasyn. The patient is also on Lasix 20 mg IV every 12 hours. He is on aspirin. He is on anticoagulation with Eliquis 2.5 mg p.o. twice a day. Rest of the medication remains unchanged. Awake and alert and communicating. Follow-up chest x-rays to be obtained for tomorrow.Echocardiogram completed revealing ejection fraction 55 to 60%, mild pulmonary hypertension, trace to mild MR, mild TR. the cardiac rhythm is a flutter with a controlled rate. The patient is currently off amiodarone. Objective - Vital Signs Vital signs: Vital Signs Temp 98.3 F 11/11/23 04:00 Pulse 76 11/11/23 08:49 Resp 20 11/11/23 04:00 BP 104/59 11/11/23 04:00 Pulse Ox 93 L 11/11/23 08:37 FiO2 80 11/10/23 03:50 Intake & Output 11/10/23 11/11/23 11/11/23 18:59 06:59 18:59 Intake Total 590 0 180 Output Total 650 1000 Balance -60 -1000 180 Weight 77.5 kg Intake: Oral 590 0 180 Output: Urine 650 1000 Other: Voiding Method Urinal Urinal # Voids 1 - Exam General appearance the patient is calm and comfortable tolerating oxygen by nasal cannula at 3 L/min. Awake and alert and communicating. Head exam was generally normal. There was no scleral icterus or corneal arcus. Mucous membranes were moist. Neck was supple and without jugular venous distension, thyromegaly, or carotid bruits. Carotids were easily palpable bilaterally. There was no adenopathy. Lung sounds are diminished bilaterally and few crackles in lung bases and breath sounds are quite diminished in left lung base. Heart sounds are irregular tachycardic consistent with atrial fibrillation. Overall heart sounds are distant. Abdominal exam revealed normal bowel sounds. The abdomen was soft, non-tender, and without masses, organomegaly, or appreciable enlargement of the abdominal aorta. The patient is obese and organs cannot be accurately palpated. Extremities reveal +1 edema and there is no cyanosis or clubbing at this point in time. Neurologically, moving all 4 extremities there is no focal neurological deficit. - Labs CBC & Chem 7: 11/11/23 07:22 11/11/23 07:45 Labs: Abnormal Lab Results - Last 24 Hours (Table) 11/10/23 11/10/23 11/10/23 Range/Units 10:59 17:25 17:25 WBC 12.6 H (3.8-10.6) k/uL RBC (4.30-5.90) m/uL MCV 102.3 H (80.0-100.0) fL Plt Count 79 L (150-450) k/uL Neutrophils # 10.5 H (1.3-7.7) k/uL BUN 29 H (9-20) mg/dL Creatinine 1.35 H (0.66-1.25) mg/dL Calcium 7.9 L (8.4-10.2) mg/dL Total Protein 6.1 L (6.3-8.2) g/dL Ur Leukocyte Esterase Moderate H (Negative) Urine WBC 43 H (0-5) /hpf Urine Mucus Rare H (None) /hpf 11/11/23 11/11/23 Range/Units 07:22 07:45 WBC (3.8-10.6) k/uL RBC 4.21 L (4.30-5.90) m/uL MCV 101.6 H (80.0-100.0) fL Plt Count 100 L (150-450) k/uL Neutrophils # (1.3-7.7) k/uL BUN 25 H (9-20) mg/dL Creatinine (0.66-1.25) mg/dL Calcium 7.5 L (8.4-10.2) mg/dL Total Protein (6.3-8.2) g/dL Ur Leukocyte Esterase (Negative) Urine WBC (0-5) /hpf Urine Mucus (None) /hpf Microbiology - Last 24 Hours (Table) 11/09/23 13:28 Blood Culture - Preliminary Blood 11/09/23 13:28 Blood Culture - Preliminary Blood Assessment and Plan Plan: Acute hypoxic/hypercapnic respiratory failure. Patient is currently off the BiPAP and he has been weaned down to 3 L of oxygen by nasal cannula.. Blood gas shows a component of chronic hypercapnic respiratory failure and is quite expected as the patient has a large hiatal hernia occupying the majority of the left lung causing some restrictive physiology on his lungs. Note that the patient is not oxygen dependent. He is obese. There may be a component of CHF in the setting of A-fib RVR contributing to his acute hypoxic and hypercapnic respiratory failure. No evidence of pneumonia. No evidence of any pulmonary embolism based on the CTA of the chest. the patient has responded to diuretics and cardiac rhythm seems to be sinus at this point in time. Shortness of breath secondary to above, acute Paroxysmal atrial fibrillation with controlled rate currently on anticoagulation with Eliquis 2.5 mg twice a day, cardiac rhythm is a flutter with a controlled rate and the patient is currently off amiodarone Large hiatal hernia occupying the majority of the left hemithorax along with atelectatic changes in the left lung base, being evaluated by the general surgery and the cardiothoracic team. Hypertension Hyperlipidemia BPH History of skin cancer in the form of basal cell carcinoma resected from his left earlobe. Plan Patient is currently off BiPAP and the patient is on 3 L O2 nasal cannula Patient was seen by cardiology. Amiodarone has been discontinued and the patient remains in A-fib/flutter with a controlled rate Echocardiogram from before with a preserved LV function Continue anticoagulation with Eliquis Lasix 20 mg IV every 12 hours for another 24 hours Continue Unasyn pending further cultures Monitor electrolytes Will establish again a CODE STATUS. Based on preliminary conversations with the family, the patient does not want any heroic measures. I am assuming that he is a DNI CODE STATUS at this point in time. I personally think that the gastropexy may be quite aggressive intervention for this patient specially with his age and comorbidities. Will have further discussion with the general surgical team and the cardiothoracic team. Repeat chest x-ray in the morning Will continue to follow.
--- NOTE | 2023-11-11 18:36 | P.PN ---
Subjective Progress Note Date: 11/11/23 Hospital course: Patient is a very pleasant 88-year-old male with a past medical history of atrial fibrillation on anticoagulation with Eliquis, hypertension, and BPH. He presented to the emergency department on 11/09/2023 in respiratory distress after calling EMS for shortness of breath. Per documentation in chart patient arrived to the ED with SpO2 of 67% on room air. Vital signs upon arrival positive for sepsis with blood pressure 109/59, heart rate 105, respiratory rate 17, temp 100.7 F, and SpO2 of 67% on room air requiring O2 supplementation 6 L for an SpO2 of 90% and later titrated upwards eventually placing patient on BiPAP with an FiO2 of 100% maintaining SpO2 of 96% or above. EKG upon arrival showing atrial fibrillation/flutter with a controlled ventricular rate of 88 bpm and a right bundle branch block with QRS duration of 142 ms. Chest x-ray showing elevated hemidiaphragm on the left with bilateral lobe lower infiltrate concerning for pneumonia. CTA chest was completed showing a large hiatal hernia containing the stomach taking the majority of the left lung with mild cardiomegaly and coronary artery atherosclerosis. Labs completed and reviewed. CBC showing thrombocytopenia with platelet count of 94. Coagulation profile rex wing slightly low PTT of 21.8. BMP was unremarkable. Lactic acid normal findings at 1.3. Liver profile unremarkable. Calcium 7.8 with albumin of 3.0 indicating a corrected calcium of 8.6. Troponin was negative at less than 0.012 and proBNP was 541. Urinalysis positive for blood nitrates and greater than 182 RBCs not specific for infection showing only 16 WBCs. Influenza A, influenza B, RSV, and COVID PCR were negative. Patient admitted under our services with consultation to pulmonology and general surgery. Patient later went into atrial fibrillation with RVR and given an amiodarone bolus followed by placement on maintenance amiodarone infusion. Ventricular rate was controlled. Patient was evaluated by cardiology recommending no further need for amiodarone and discontinuing at this time. Physical exam: Patient seen and fully evaluated at bedside. He reports feeling better and breathing better today. He is down to 4 L O2 via nasal cannula. He denies having any needs, questions, or concerns at this time. Vital signs reviewed and stable. General: Nontoxic, no distress and appears stated age. Derm: Skin warm and dry, normal coloration for ethnicity. Head: Atraumatic, normocephalic and symmetric. Eyes: EOMs intact, no lid lag, and anicteric sclera Mouth: no lip lesions, mucus membranes moist Cardiovascular: regular rate and rhythm with normal S1S2, no murmur, positive posterior tibial pulses bilaterally, and cap refill < 2 seconds. Lungs: Respirations even, regular, and unlabored on 4 L O2 via NC. Lungs diminished. Abdominal: soft, nontender to palpation, no guarding, no appreciable organomegaly Ext: ROM intact. No gross muscle atrophy, scant lower extremity edema, no contractures Neuro: Speech clear, face symmetrical and CN II-XII grossly intact with no noted focal neuro deficits Psych: Alert and oriented to person, place, time, and situation. Appropriate and pleasant affect. Assessment and Plan of Care: Acute respiratory failure with hypoxia and hypercapnia Suspected Bilateral lower lobe pneumonia, possible aspiration as pt reports d ysphasia Large hiatal hernia taking the majority of the left lung space -Continue supplemental oxygen and/or BiPAP as needed, titrate to maintain SPO2 equal to or greater than 90% -Continuous telemetry monitoring. -Monitor pulse-oximetry -Duonebs scheduled 4 times daily and as needed for SOB and/or wheezing -Continue IV antibiotics with Unasyn 3 g IVPB every 8 hours and doxycycline 100 mg IVPB every 12 hours, day 2 of antibiotics -Blood culture showing no growth to date. -Pulmonology following, discussed plan of care with Dr. Louise. -General surgery following, consulted cardiothoracic surgery for evaluation. Discussed plan of care with general surgery PA and patient's diet increase to clear liquid diet at this time -Cardiothoracic surgery following, discussed plan of care with cardiothoracic surgery DIRECTOR OF GLOBAL TALENT stating tentatively planning to take patient for hernia repair 11/15/2023 -Barium swallow was completed showing esophageal dysmotility with large hiatal hernia with the stomach in the thorax Atrial fibrillation with RVR Chronic heart failure, unclear type pending echocardiogram results Hypertension -Cardiology following, discussed plan of care with cardiac DIRECTOR OF GLOBAL TALENT. Amiodarone discontinued. -Telemetry monitoring -Troponin was negative at less than 0.012 and proBNP was only 541. -Continue cardiac medication regimen with aspirin 81 mg daily, atorvastatin 10 mg nightly, Eliquis 2.5 mg twice daily, amlodipine 5 mg twice daily and lisinopril 20 mg twice daily. -Patient started on Lasix 20 mg IVP per pulmonology -Echocardiogram to be completed Abnormal urinalysis, UTI ruled out -Urinalysis positive for blood, nitrates, leukocytes, greater than 182 RBCs but only 16 WBCs which is not convincing for infection and patient currently denies any urinary complaints including frequency, urgency, or dysuria. -Urine culture negative, UTI ruled out BPH -Continue Flomax 0.4 mg twice daily. Data and imaging reviewed: -Morning labs reviewed. CBC showing mild thrombocytosis with platelet count of 100 otherwise normal findings. BMP showing mild prerenal azotemia with BUN of 25 otherwise normal findings. Magnesium 2.1. Culture showing no growth to date. Urine culture negative. -Vital signs reviewed. Blood pressure 110/70, heart rate 87, respiratory rate 16, temp 97.4 F, and SpO2 of 94% on room air. -Barium swallow was completed showing esophageal dysmotility with large hiatal hernia with the stomach in the thorax CODE STATUS: Full code DVT prophylaxis: Eliquis Anticipated discharge date: Clinical course to determine Anticipated discharge place: Clinical course to determine Patient was seen independently by Nurse Pracitioner. This document was prepared using [employer] dictation software. Please allow for errors in offset plate maker, while rare they do occur. Rogers Leyva NP rendered care for this patient independently, reviewed the findings and plan as documented in the note above. I did not physically speak with or examine the patient on this date. Objective - Vital Signs Vital signs: Vital Signs Temp 98.3 F 11/11/23 04:00 Pulse 80 11/11/23 04:00 Resp 20 11/11/23 04:00 BP 104/59 11/11/23 04:00 Pulse Ox 94 L 11/11/23 04:00 FiO2 80 11/10/23 03:50 Intake & Output 11/10/23 11/11/23 11/11/23 18:59 06:59 18:59 Intake Total 590 0 Output Total 650 1000 Balance -60 -1000 Weight 77.5 kg Intake: Oral 590 0 Output: Urine 650 1000 Other: Voiding Method Urinal Urinal # Voids 1 - Labs CBC & Chem 7: 11/11/23 07:22 11/11/23 07:45 Labs: Abnormal Lab Results - Last 24 Hours (Table) 11/10/23 11/10/23 11/10/23 Range/Units 10:59 17:25 17:25 WBC 12.6 H (3.8-10.6) k/uL MCV 102.3 H (80.0-100.0) fL Plt Count 79 L (150-450) k/uL Neutrophils # 10.5 H (1.3-7.7) k/uL BUN 29 H (9-20) mg/dL Creatinine 1.35 H (0.66-1.25) mg/dL Calcium 7.9 L (8.4-10.2) mg/dL Total Protein 6.1 L (6.3-8.2) g/dL Ur Leukocyte Esterase Moderate H (Negative) Urine WBC 43 H (0-5) /hpf Urine Mucus Rare H (None) /hpf Microbiology - Last 24 Hours (Table) 11/09/23 13:28 Blood Culture - Preliminary Blood 11/09/23 13:28 Blood Culture - Preliminary Blood
[2023-11-11] MEDS: APIXABAN 2.5 MG TABLET PO SCH (21:20)
[2023-11-11] MEDS: polyethylene glycoL 3350 17 GM POWD.PACK PO SCH (21:20)
[2023-11-11] MEDS: LACTULOSE 20 GM/30 ML CUP PO ONE (21:31)
[2023-11-12 00:06] LABS: Glucose,Whole Blood 106 mg/dL (70-110)
[2023-11-12] MEDS ORDERED: CAFFEINE CITRATE 60 MG/3 ML VIAL IV PRN (06:00)
[2023-11-12] MEDS ORDERED: REGADENOSON 0.4 MG/5 ML SYRINGE IV PRN (06:00)
[2023-11-12] MEDS ORDERED: AMINOPHYLLINE 500 MG/20 ML VIAL IV PRN (06:00)
[2023-11-12 06:09] LABS: Glucose,Whole Blood 92 mg/dL (70-110)
--- NOTE | 2023-11-12 08:38 | XR ---
EXAMINATION TYPE: XR chest 1V DATE OF EXAM: 11/12/2023 7:14 AM CLINICAL INDICATION:Male, 88 years old with history of CHF; COMPARISON: Chest radiographs from 11/11/2023. TECHNIQUE: XR chest 1V Frontal view of the chest. FINDINGS: Lungs/Pleura: No evidence of focal consolidation or pneumothorax. Blunting of the costophrenic angles is present. Pulmonary vascularity: Pulmonary vascular congestion. Heart/mediastinum: Cardiomediastinal silhouette is enlarged and stable. Musculoskeletal: No acute osseous pathology. IMPRESSION: Cardiomegaly, pulmonary vascular congestion and bilateral pleural effusions. Correlate with BNP for c ongestive heart failure.
--- NOTE | 2023-11-12 08:48 | P.PN ---
Progress Note - Text Progress Note Date: 11/12/23 Further care regarding hiatal hernia per general surgery recommendations. If cardiothoracic surgery can be of assistance with the hiatal hernia please reconsult.
--- NOTE | 2023-11-12 11:36 | CA ---
Lexiscan Nuclear Stress Test Report Name: Carola Johnson Exam Date: 11/12/2023 09:39 Exam Location: [place] Stress Ht (in): 69 Wt (lb): 240 BSA: 2.23 Ordering Phys: Milla Kwan Referring Phys: JASON, Technologist: ROSA,, Age: 88 Gender: M : 1935 Procedure CPT: Indications: Reflex order-Stress test ICD-10 Codes: Patient History: Short of breath Medications: Meds past 24 hrs: Pretest Chest Pain: STRESS TEST Lexiscan Protocol Exercise Duration (min:sec): 01:[address] Depressions (mm): Angina Score: Stiles Score: Resting HR (bpm): 84 Peak HR (bpm): 98 Resting BP (mmHg): 146 / 84 Peak BP (mmHg): 131 / 72 MPHR: 131 Target HR: 111 % MPHR: 75 METS: 1.0 Total Dose: Peak Dose: Atropine: Double Product: 47517 BP Response: Stress Termination: Infusion complete Stress Symptoms: HEADACHE,DIFFICULTY IN BREATHING,LIGHTHEADEDNESS Stress Summary: ECG ANALYSIS Resting ECG: Atrial flutter, RBBB, HR 84 bpm Stress ECG: No significant ST-T wave changes diagnostic for ischemia with Lexiscan infusion. Baseline rhythm atrial flutter. No other arrhythmias noticed. No other ventricular ectopic beats noticed. CONCLUSIONS Nonischemic ECG response to Lexiscan infusion Baseline atrial flutter Overall normal ECG portion of the stress test Please refer to the nuclear imaging portion of the stress test for complete intubation of the study Dr Sergio Pepe (Electronically Signed) Final Date: 12 November 2023 11:35
[2023-11-12 11:45] LABS: Glucose,Whole Blood 103 mg/dL (70-110)
--- NOTE | 2023-11-12 13:10 | NM ---
EXAMINATION TYPE: NM stress lexiscan cardiolite DATE OF EXAM: 11/12/2023 COMPARISON: NONE CLINICAL INDICATION: Male, 88 years old with history of SOB with exertion, pre-op clearance; TECHNIQUE: After the intravenous administration of 10.6 mCi Tc 99m Sestamibi - Cardiolite resting SP ECT images acquired 105 minutes post injection. The patient received 0.4mg Lexiscan, 25.5 mCi Tc 99m Sestamibi - Stress images obtained [address] injection FINDINGS: Review of stress and rest SPECT images demonstrates no distinct perfusion abnormality. Gated analysi s shows normal wall motion with an estimated left ventricular ejection fraction of 60 %. IMPRESSION: No scintigraphic evidence for reversible ischemia.
--- NOTE | 2023-11-12 13:32 | P.PN ---
Subjective Progress Note Date: 11/12/23 Hospital course: Patient is a very pleasant 88-year-old male with a past medical history of atrial fibrillation on anticoagulation with Eliquis, hypertension, and BPH. He presented to the emergency department on 11/09/2023 in respiratory distress after calling EMS for shortness of breath. Per documentation in chart patient arrived to the ED with SpO2 of 67% on room air. Vital signs upon arrival positive for sepsis with blood pressure 109/59, heart rate 105, respiratory rate 17, temp 100.7 F, and SpO2 of 67% on room air requiring O2 supplementation 6 L for an SpO2 of 90% and later titrated upwards eventually placing patient on BiPAP with an FiO2 of 100% maintaining SpO2 of 96% or above. EKG upon arrival showing atrial fibrillation/flutter with a controlled ventricular rate of 88 bpm and a right bundle branch block with QRS duration of 142 ms. Chest x-ray showing elevated hemidiaphragm on the left with bilateral lobe lower infiltrate concerning for pneumonia. CTA chest was completed showing a large hiatal hernia containing the stomach taking the majority of the left lung with mild cardiomegaly and coronary artery atherosclerosis. Labs completed and reviewed. CBC showing thrombocytopenia with platelet count of 94. Coagulation profile rex wing slightly low PTT of 21.8. BMP was unremarkable. Lactic acid normal findings at 1.3. Liver profile unremarkable. Calcium 7.8 with albumin of 3.0 indicating a corrected calcium of 8.6. Troponin was negative at less than 0.012 and proBNP was 541. Urinalysis positive for blood nitrates and greater than 182 RBCs not specific for infection showing only 16 WBCs. Influenza A, influenza B, RSV, and COVID PCR were negative. Patient admitted under our services with consultation to pulmonology and general surgery. Patient later went into atrial fibrillation with RVR and given an amiodarone bolus followed by placement on maintenance amiodarone infusion. Ventricular rate was controlled. Patient was evaluated by cardiology recommending no further need for amiodarone and discontinuing at this time. Echocardiogram was completed, report not available but per cardiology stating echocardiogram revealing a preserved EF of 55 to 60% with mild pulmonary hypertension and trace to mild mitral and tricuspid regurgitation. Barium swallow was completed showing esophageal dysmotility with large hiatal hernia with the stomach in the thorax. He was evaluated by general surgery who then consulted cardiothoracic surgery for evaluation of hiatal hernia management. Initial plan was for patient to undergo repair of hiatal hernia with cardiothoracic surgery, however general surgery stating after review of esophagram there is no indication for surgery at this point as patient has no signs of obstruction and due to chronic nature of hernia, they do not recommend patient undergoing surgery at this time. Stress test was completed and report showing nonischemic EKG response to Lexiscan infusion revealing baseline atrial flutter. Lexiscan stress test report showing no scintigraphic evidence for reversible ischemia. Physical exam: Patient seen and fully scintigraphicdside. He reports feeling better and breathing better today. He is down to 3 L O2 via nasal cannula this morning. He reports breathing a little easier today. He denies having any headache, lightheadedness, dizziness, chest pain, palpitations, nausea, vomiting, or experiencing any numbness/tingling/weakness in his extremities. Vital signs reviewed and stable. General: Nontoxic, no distress and appears stated age. Derm: Skin warm and dry, normal coloration for ethnicity. Head: Atraumatic, normocephalic and symmetric. Eyes: EOMs intact, no lid lag, and anicteric sclera Mouth: no lip lesions, mucus membranes moist Cardiovascular: regular rate and rhythm with normal S1S2, no murmur, positive posterior tibial pulses bilaterally, and cap refill < 2 seconds. Lungs: Respirations even, regular, and unlabored on 4 L O2 via NC. Lungs diminished. Abdominal: soft, nontender to palpation, no guarding, no appreciable organomegaly Ext: ROM intact. No gross muscle atrophy, scant lower extremity edema, no contractures Neuro: Speech clear, face symmetrical and CN II-XII grossly intact with no noted focal neuro deficits Psych: Alert and oriented to person, place, time, and situation. Appropriate and pleasant affect. Assessment and Plan of Care: Acute respiratory failure with hypoxia and hypercapnia Suspected Bilateral lower lobe pneumonia, possible aspiration as pt reports dysphasia -Continue supplemental oxygen and/or BiPAP as needed, titrate to maintain SPO2 equal to or greater than 90% -Continuous telemetry monitoring. -Monitor pulse-oximetry -Duonebs scheduled 4 times daily and as needed for SOB and/or wheezing -Continue IV antibiotics with Unasyn 3 g IVPB every 8 hours and doxycycline 100 mg IVPB every 12 hours, day 3 of antibiotics -Blood culture showing no growth to date. -Pulmonology following, discussed plan of care with Dr. Louise. Large hiatal hernia taking the majority of the left lung space -CTA chest was completed showing a large hiatal hernia containing the stomach taking the majority of the left lung. -Barium swallow was completed showing esophageal dysmotility with large hiatal hernia with the stomach in the thorax. -Patient was evaluated by general surgery who then consulted cardiothoracic surgery for evaluation of hiatal hernia management. Cardiothoracic surgery evaluated and initial plan was for patient to undergo repair of hiatal hernia with cardiothoracic surgery, however general surgery stating after review of esophagram stated there is no indication for surgery at this point as patient has no signs of obstruction and due to chronic nature of hernia, they do not recommend patient undergoing surgery at this time. Atrial fibrillation and flutter with RVR Chronic diastolic heart failure Hypertension -Cardiology following, discussed plan of care with cardiac INTRUSION ANALYST. -Telemetry monitoring -Troponin was negative at less than 0.012 and proBNP was only 541. -Continue cardiac medication regimen with aspirin 81 mg daily, atorvastatin 10 mg nightly, Eliquis 2.5 mg twice daily, amlodipine 5 mg twice daily and lisinopril 20 mg twice daily. -Patient started on Lasix 20 mg IVP per pulmonology -Echocardiogram was completed report not available yet for review however cardiology reporting echocardiogram showing preserved EF of 55 to 60% with mild pulmonary hypertension and trace to mild mitral and tricuspid regurgitation. -Stress test was completed and report showing nonischemic EKG response to Lexiscan infusion revealing baseline atrial flutter. Lexiscan stress test report showing no scintigraphic evidence for reversible ischemia. Abnormal urinalysis, UTI ruled out -Urinalysis positive for blood, nitrates, leukocytes, greater than 182 RBCs but only 16 WBCs which is not convincing for infection and patient currently denies any urinary complaints including frequency, urgency, or dysuria. -Urine culture negative, UTI ruled out BPH -Continue Flomax 0.4 mg twice daily. Data and imaging reviewed: -Morning labs reviewed. CBC showing mild thrombocytosis with platelet count of 100 otherwise normal findings. BMP showing mild prerenal azotemia with BUN of 25 otherwise normal findings. Magnesium 2.1. Culture showing no growth to date. Urine culture negative. -Vital signs reviewed. Blood pressure 119/64, heart rate 68, respiratory rate 18, temp 96.4 F, and SpO2 of 93% on 3 L -Echocardiogram was completed report not available yet for review however cardiology reporting echocardiogram showing preserved EF of 55 to 60% with mild pulmonary hypertension and trace to mild mitral and tricuspid regurgitation. -Stress test was completed and report showing nonischemic EKG response to Lexiscan infusion revealing baseline atrial flutter. Lexiscan stress test report showing no scintigraphic evidence for reversible ischemia. CODE STATUS: Full code DVT prophylaxis: Eliquis Anticipated discharge date: Clinical course to determine Anticipated discharge place: Clinical course to determine Patient was seen independently by Nurse Pracitioner. This document was prepared using [employer] dictation software. Please allow for errors in grocery manager, while rare they do occur. Rogers Leyva NP rendered care for this patient independently, reviewed the findings and plan as documented in the note above. I did not physically speak with or examine the patient on this date. Objective - Vital Signs Vital signs: Vital Signs Temp 98.4 F 11/11/23 20:09 Pulse 82 11/12/23 04:00 Resp 16 11/12/23 04:00 BP 126/70 11/12/23 04:00 Pulse Ox 95 11/12/23 04:00 FiO2 80 11/10/23 03:50 Intake & Output 11/11/23 11/12/23 11/12/23 18:59 06:59 18:59 Intake Total 1440 540 Output Total 200 920 200 Balance 1240 -380 -200 Intake: Oral 1440 540 Output: Urine 200 920 200 Other: Voiding Method Urinal Urinal # Voids 1 - Labs CBC & Chem 7: 11/11/23 07:22 11/11/23 07:45 Labs: Abnormal Lab Results - Last 24 Hours (Table) 11/11/23 11/11/23 11/11/23 Range/Units 07:45 11:17 16:37 BUN 25 H (9-20) mg/dL POC Glucose (mg/dL) 138 H 122 H (70-110) mg/dL Calcium 7.5 L (8.4-10.2) mg/dL Prealbumin 14.6 L (18.0-42.0) mg/dL Microbiology - Last 24 Hours (Table) 11/09/23 13:28 Blood Culture - Preliminary Blood 11/09/23 13:28 Blood Culture - Preliminary Blood 11/10/23 10:59 Urine Culture - Final Urine,Voided
--- NOTE | 2023-11-12 13:49 | CDI ---
Documentation Clarification Form Date: 11/12/2023 01:04:38 PM From: Rosey Troy RN CCDS Phone: [phone] Admit Date: 11/09/2023 05:52:00 PM Patient Name: Carola Johnson Visit Number: [id number] Discharge Date: ATTENTION: The Clinical Documentation Specialists (CDI) and [facility] Coding Staff appreciate your assistance in clarifying documentation. Please respond to the clarification below the line at the bottom and electronically sign. The CDI & [facility] Coding staff will review the response and follow-up if needed. Please note: Queries are made part of the Legal Health Record. If you have any questions, please contact the author of this message via ITS. Dr. Libertad Zarate Your patient has elevated creatinine 11/09, documented in Lab report. Based on this information and the findings below, is there an additional diagnosis that is clinically appropriate for this patient? Patient history/risk factors: 88 year old male presents to the ED having trouble breathing, the patients puls oximeter showed heart rate 130 -150 with oxygen saturation dropping to 87% family decided to bring him to the ED. Medical History: Atrial fibrillation planned to have ablation next week, HTN and Prostate disorder. 11/08, H&P. Clinical Indicators: 11/08: BUN 18 CR 0.93; GFR 62 11/09: BUN 29 CR 1.35; GFR 46 11/10: BUN 25 CR 1.06; GFR 73 Treatment: 11/08 0.9NS 1L IV Bolus; 11/08 Lasix 20mg IV Q12H Is there an additional diagnosis that is clinically appropriate for this patient? [ ] Acute Kidney Injury [ x ] No additional diagnosis/Not clinically significant [ ] Unable to determine [ ] Other, please specify Reference: KDIGO JOJO Criteria An increase in serum creatinine by greater than or equal to 0.3 mg/dL within 48 hours; An increase in serum creatinine by greater than or equal to 1.5 times baseline, which is known or presumed to have occurred within the prior 7 days; A urine volume less than 0.5 ml/kg/h for 6 hours. When the baseline is unknown the lowest creatinine during admission assumed to be baseline (Template Last Revised: September 2022) MTDD
--- NOTE | 2023-11-12 14:45 | P.PN ---
Subjective HISTORY OF PRESENT ILLNESS: This is a 88-year-old male with a past medical history significant for atrial flutter, hypertension, and hyperlipidemia. Patient follows in the office with Dr. Salas. We have been asked to see the patient in consultation for hypoxia. Patient examined at the bedside. Patient states he came to the emergency room because his family was concerned about him. He states that he thought he was having a panic attack. He states that his upper extremities were shaking vigorously. He does report having a fever. He denied any chest pain or pressure. He reported having some shortness of breath which is chronic for him. The patient was found to be hypoxic upon arrival to the emergency room and was started on BiPAP. This morning he states his shortness of breath is at his baseline. He is currently on nasal cannula at the time of examination. The patient was also found to be febrile. Patient was diagnosed with a UTI and started on IV antibiotics. The patient has a known history of atrial flutter and is scheduled for an ablation on December 27, [address] Salas DIAGNOSTICS: - EKG reveals atrial flutter with controlled ventricular rate. - Chest xray elevated hemidiaphragm of the left with bilateral lower lobe infiltrate. Correlate for pneumonia.. - Laboratory data: WBC 3.8. Hemoglobin 14.8. Platelet count 94. Sodium 137. Potassium 3.7. BUN 18. Creatinine 0.93. Lactic acid 1.3. Troponin negative x 1. proBNP 541. - Current home cardiac medications include lovastatin 40 mg at night, amlodip ine/benazepril 5-20 mg twice a day, Eliquis 2.5 mg twice a day, aspirin 81 mg daily. 11/11/2023 Patient examined this morning at the bedside. Patient's daughter is present. Patient currently denies any chest pain or pressure. He reports improvement in his shortness of breath. He remains on IV Lasix per pulmonary medicine. Telemetry reveals atrial flutter with controlled ventricular rate. Patient was evaluated by CT surgery and is scheduled to undergo robotic assisted laparoscopy with gastropexy, G-tube placement and EGD for Wednesday, November 15, 2023 to be performed by Dr. Landa. Echocardiogram completed revealing ejection fraction 55 to 60%, mild pulmonary hypertension, trace to mild MR, mild TR. 11/12/2023 Patient examined this morning at bedside. Patient was initially scheduled for surgery with CT surgery on Wednesday. However he has been evaluated by general surgery who did not think surgery was indicated. CT surgery has canceled planned surgery. His Eliquis has been resumed. He remains on IV diuretics per pulmonary medicine. Patient underwent Lexiscan today which was negative for ischemia PHYSICAL EXAM: VITAL SIGNS: Reviewed. GENERAL: Well-developed in no acute distress. HEENT: Head is normocephalic. Pupils are equal, round. Sclerae anicteric. Mucous membranes of the mouth are moist. Neck supple. No JVD or thyromegaly LUNGS: Respirations even and unlabored. Lungs essentially clear to auscultation bilaterally. HEART: Regular rate and rhythm. S1 and S2 heard. ABDOMEN: Soft. Nondistended. Nontender. EXTREMITIES: Normal range of motion. No clubbing or cyanosis. Peripheral pulses intact. Minimal lower extremity edema NEUROLOGIC: Awake and alert. Oriented x 3. ASSESSMENT: Acute hypoxic respiratory failure Urinary tract infection Persistent typical atrial flutter with controlled ventricular rate Chronic heart failure with preserved EF, currently appears to be euvolemic, BNP 541 Fever with rigors Hypertension Hyperlipidemia Large hiatal hernia PLAN: Patient's Eliquis has been resumed Continue IV Lasix per pulmonary. May be transitioned to oral diuretics from a cardiology standpoint Continue additional cardiac medications Patient underwent Lexiscan today which was negative for ischemia Patient scheduled for atrial flutter ablation with Dr. Salas on December 27, 2023 Patient is stable for from a cardiac standpoint Further recommendations pending patient course Nurse practitioner note has been reviewed by physician. Signing provider agrees with the documented findings, assessment, and plan of care documented by PATTERN HANGER as a scribe. Objective - Vital Signs Vital signs: Vital Signs Temp 98.4 F 11/11/23 20:09 Pulse 82 11/12/23 04:00 Resp 16 11/12/23 04:00 BP 126/70 11/12/23 04:00 Pulse Ox 95 11/12/23 04:00 FiO2 80 11/10/23 03:50 Intake & Output 11/11/23 11/12/23 11/12/23 18:59 06:59 18:59 Intake Total 1440 540 Output Total 200 920 200 Balance 1240 -380 -200 Intake: Oral 1440 540 Output: Urine 200 920 200 Other: Voiding Method Urinal Urinal # Voids 1 - Labs CBC & Chem 7: 11/11/23 07:22 11/11/23 07:45 Labs: Abnormal Lab Results - Last 24 Hours (Table) 11/11/23 11/11/23 11/11/23 Range/Units 07:45 11:17 16:37 POC Glucose (mg/dL) 138 H 122 H (70-110) mg/dL Prealbumin 14.6 L (18.0-42.0) mg/dL Microbiology - Last 24 Hours (Table) 11/09/23 13:28 Blood Culture - Preliminary Blood 11/09/23 13:28 Blood Culture - Preliminary Blood 11/10/23 10:59 Urine Culture - Final Urine,Voided
--- NOTE | 2023-11-12 15:46 | P.PN ---
Subjective Progress Note Date: 11/12/23 On today's evaluation of the , the patient was taken off the BiPAP and the patient is currently on 8 L of O2 nasal cannula which was further weaned down to 6 L. Current pulse ox is in the order of 95%. Cardiac rhythm is A-fib yet with a controlled rate. Awaiting repeat labs from today.The patient remains on Lasix 20 g IV every 12 hours. The patient remains on anticoagulation with Eliquis 2.5 mg twice a day. He was started with empiric antibiotic coverage and the patient is currently on IV Unasyn and doxycycline. Awake and alert and ommunicating. The patient has no significant dyspnea at rest. On today's evaluation of 11/11/2023, the patient is being seen for a follow-up. The patient is stable on 2 L of oxygen by nasal cannula. No significant respiratory distress. A barium swallow was completed and the patient was found to have some esophageal dysmotility with a large intrathoracic hiatal hernia in place. As such, the patient has undergone various consultation along with gene ral surgery and the patient was evaluated by 2 general surgeons and thoracic surgery. Patient is being considered for gastropexy and a PEG tube insertion. However, the final decision regarding surgical intervention has not been done. The patient's blood work today shows a BUN of 25 with a creatinine 1.06. WBC count of 10.6 with a hemoglobin 13.8 and a platelet count of 100. The patient remains on IV Unasyn. The patient is also on Lasix 20 mg IV every 12 hours. He is on aspirin. He is on anticoagulation with Eliquis 2.5 mg p.o. twice a day. Rest of the medication remains unchanged. Awake and alert and communicating. Follow-up chest x-rays to be obtained for tomorrow.Echocardiogram completed revealing ejection fraction 55 to 60%, mild pulmonary hypertension, trace to mild MR, mild TR. the cardiac rhythm is a flutter with a controlled rate. The patient is currently off amiodarone. On today's evaluation of 11/12/2023, patient is resting comfortably in bed with no specific complaints. He is currently on 3 days of oxygen by nasal cannula. Repeat chest x-ray was done today and shows cardiomegaly and pulm vessel congestion and pleural effusions and a intrathoracic left-sided hiatal hernia which is quite fairly large in size. After having a nice discussion with the general surgical team and the thoracic team, we decided not to operate on this patient's hiatal hernia. The patient meanwhile is being diuresed with Lasix. The patient is found to have milligrams of IV Lasix every 12 hours. The patient is also on IV Unasyn covering for any aspiration pneumonia. Doing well with no specific complaints. His blood work needs to be repeated tomorrow. His kidney function was improving. His cardiac rhythm is sinus. He is also on anticoagulation with Eliquis 2.5 mg p.o. twice a day. Feeling well. No specific complaints. Awake and alert.The cardiac stress test was also completed and showed no evidence of any reversible ischemia. Objective - Vital Signs Vital signs: Vital Signs Temp 96.4 F L 11/12/23 08:00 Pulse 68 11/12/23 08:00 Resp 18 11/12/23 08:00 BP 119/64 11/12/23 08:00 Pulse Ox 93 L 11/12/23 08:00 FiO2 80 11/10/23 03:50 Intake & Output 11/11/23 11/12/23 11/12/23 18:59 06:59 18:59 Intake Total 1440 540 Output Total 200 920 200 Balance 1240 -380 -200 Intake: Oral 1440 540 Output: Urine 200 920 200 Other: Voiding Method Urinal Urinal Urinal # Voids 1 - Exam General appearance the patient is calm and comfortable tolerating oxygen by nasal cannula at 3 L/min. Awake and alert and communicating. Head exam was generally normal. There was no scleral icterus or corneal arcus. Mucous membranes were moist. Neck was supple and without jugular venous distension, thyromegaly, or carotid bruits. Carotids were easily palpable bilaterally. There was no adenopathy. Lung sounds are diminished bilaterally and few crackles in lung bases and breath sounds are quite diminished in left lung base. Heart sounds are irregular tachycardic consistent with atrial fibrillation. Overall heart sounds are distant. Abdominal exam revealed normal bowel sounds. The abdomen was soft, non-tender, and without masses, organomegaly, or appreciable enlargement of the abdominal aorta. The patient is obese and organs cannot be accurately palpated. Extremities reveal +1 edema and there is no cyanosis or clubbing at this point in time. Neurologically, moving all 4 extremities there is no focal neurological deficit. - Labs CBC & Chem 7: 11/11/23 07:22 11/11/23 07:45 Labs: Abnormal Lab Results - Last 24 Hours (Table) 11/11/23 11/11/23 11/11/23 Range/Units 07:45 11:17 16:37 POC Glucose (mg/dL) 138 H 122 H (70-110) mg/dL Prealbumin 14.6 L (18.0-42.0) mg/dL Microbiology - Last 24 Hours (Table) 11/09/23 13:28 Blood Culture - Preliminary Blood 11/09/23 13:28 Blood Culture - Preliminary Blood 11/10/23 10:59 Urine Culture - Final Urine,Voided Assessment and Plan Plan: Acute hypoxic/hypercapnic respiratory failure. Patient is currently off the BiPAP and he has been weaned down to 3 L of oxygen by nasal cannula.. Blood gas shows a component of chronic hypercapnic respiratory failure and is quite expect ed as the patient has a large hiatal hernia occupying the majority of the left lung causing some restrictive physiology on his lungs. Note that the patient is not oxygen dependent. He is obese. There may be a component of CHF in the setting of A-fib RVR contributing to his acute hypoxic and hypercapnic respiratory failure. No evidence of pneumonia. No evidence of any pulmonary embolism based on the CTA of the chest. the patient has responded to diuretics and cardiac rhythm seems to be sinus at this point in time. The patient currently is on 3 L of oxygen by nasal cannula. Repeat chest x-ray shows some cardiomegaly and pulm vessel congestion and a left intrathoracic hiatal hernia. Shortness of breath secondary to above, acute, improving Paroxysmal atrial fibrillation with controlled rate currently on anticoagulation with Eliquis 2.5 mg twice a day, cardiac rhythm is a flutter with a controlled rate and the patient is currently off amiodarone. The patient's cardiac rhythm remained sinus. The cardiac Lexiscan stress test came back negative for any reversible ischemia. Large hiatal hernia occupying the majority of the left hemithorax along with atelectatic changes in the left lung base, no plans for surgery at this point in time based on age and comorbidities Hypertension Hyperlipidemia BPH History of skin cancer in the form of basal cell carcinoma resected from his left earlobe. Plan Patient is on 3 L O2 nasal cannula Cardiac stress has been negative Echocardiogram from before with a preserved LV function Continue anticoagulation with Eliquis Lasix 20 mg IV every 12 hours for another 24 hours, repeat electrolytes in the morning Continue Unasyn pending further cultures Monitor electrolytes Will establish again a CODE STATUS. Based on preliminary conversations with the family, the patient does not want any heroic measures. I am assuming that he is a DNI CODE STATUS at this point in Will continue to follow.
[2023-11-12 16:38] LABS: Glucose,Whole Blood 150 mg/dL (70-110)
[2023-11-13 00:07] LABS: Glucose,Whole Blood 118 mg/dL (70-110)
[2023-11-13 06:20] LABS: Glucose,Whole Blood 140 mg/dL (70-110)
--- NOTE | 2023-11-13 08:47 | P.PN ---
Subjective Progress Note Date: 11/12/23 CHIEF COMPLAINT: Shortness of breath HISTORY OF PRESENT ILLNESS: The patient is a 88 year old male who presented with shortness of breath, pulmonary edema, atrial fibrillation with rapid ventricular response. His daughter is at bedside. He reports his breathing has improved. He denies shortness of breath today. His daughter brought him [employer] and he ate the entire [employer] meal without dysphagia or symptoms. Patient is comfortable. He is eager to be discharged. REVIEW OF ORGAN SYSTEMS: Resolved shortness of breath. Denies chest pain. No productive sputum. PHYSICAL EXAM: VITALS: Reviewed CONSTITUTIONAL: Well developed and in no acute distress. EYES: Conjuctivae without sclera icterus. Extraocular movements grossly intact. HEAD, EARS, NOSE, THROAT: Moist buccal mucosa. Head is atraumatic, normocephalic. Hears conversational speech. No nasal drainage. RESPIRATORY: Non-labored respirations and equal bilateral excursions. No gross wheezes. CARDIOVASCULAR: Palpable 2+ radial pulses. ABDOMEN: Nontender nondistended. MUSCULOSKELETAL: No clubbing cyanosis or edema SKIN: Warm and well perfused with good skin turgor. NEUROLOGIC: Cranial nerves II through XII grossly intact. No focal or lateralizing signs. PSYCH: Appropriate affect. Alert and oriented to person, place and time. Displays appropriate insight. CLINCAL LABS: Reviewed. Prior hemoglobin normal 13.2 ASSESSMENT: 1. Pulmonary edema with shortness of breath 2. Atrial fibrillation with rapid ventricular response, resolved 3. Hypertensive cardiomyopathy with congestive heart failure, improved 4. Intrathoracic paraesophageal hiatal hernia PLAN: 1. On exam, patient denies any symptoms and tolerating normal meals without dysphagia. Clinically, patient is stable from a surgical standpoint for discharge 2. Diet as tolerated upon discharge Objective - Vital Signs Vital signs: Vital Signs Temp 97.9 F 11/12/23 19:37 Pulse 88 11/13/23 08:34 Resp 18 11/13/23 04:00 BP 109/51 11/13/23 04:00 Pulse Ox 92 L 11/13/23 08:23 FiO2 80 11/10/23 03:50 Intake & Output 11/12/23 11/13/23 11/13/23 18:59 06:59 18:59 Intake Total 358 118 Output Total 450 650 Balance -92 -650 118 Weight 105 kg Intake: Oral 358 118 Output: Urine 450 650 Other: Voiding Method Urinal Urinal - Labs CBC & Chem 7: 11/11/23 07:22 11/11/23 07:45 Labs: Abnormal Lab Results - Last 24 Hours (Table) 11/12/23 11/13/23 11/13/23 Range/Units 16:35 00:03 06:09 POC Glucose (mg/dL) 150 H 118 H 140 H (70-110) mg/dL Microbiology - Last 24 Hours (Table) 11/09/23 13:28 Blood Culture - Preliminary Blood 11/09/23 13:28 Blood Culture - Preliminary Blood
--- NOTE | 2023-11-13 11:23 | XR ---
EXAMINATION TYPE: XR chest 1V DATE OF EXAM: 11/13/2023 COMPARISON: 11/12/2023 HISTORY: Follow-up pneumonia TECHNIQUE: Single frontal view of the chest is obtained. FINDINGS: There is a persistent consolidative opacity securing the left hemidiaphragm consistent with a pneumon ic infiltrate and pleural effusion. There is additional fluid in the left costophrenic angle and with in the Procedure. The small effusion on the right has cleared in the interval. . Heart and pulmonary vasculature are unremarkable technique. The osseous structures are intact. IMPRESSION: Acute cardiopulmonary disease involving the left lower lobe with findings that suggest a mild increas e in left pleural effusion but no change in the consolidative opacity obscuring the diaphragm.
[2023-11-13 12:02] LABS: Glucose,Whole Blood 107 mg/dL (70-110)
[2023-11-13 12:04] LABS: ALT 14 U/L (4-49); AST 20 U/L (17-59); African American GFR (CKD) >90 (>60 ml/min/1.73 sqM); Albumin 3.2 g/dL (3.5-5.0); Alkaline Phosphatase 64 U/L (38-126); Anion Gap 3 mmol/L; Blood Urea Nitrogen 10 mg/dL (9-20); Calcium 7.8 mg/dL (8.4-10.2); Carbon Dioxide 34 mmol/L (22-30); Chloride 103 mmol/L (98-107); Glucose 128 mg/dL (74-99); Magnesium 1.9 mg/dL (1.6-2.3); Non-African American GFR(CKD) 84 (>60 ml/min/1.73 sqM); Potassium 3.7 mmol/L (3.5-5.1); Sodium 140 mmol/L (137-145); Total Bilirubin 0.7 mg/dL (0.2-1.3); Total Protein 5.6 g/dL (6.3-8.2)
[2023-11-13 12:08] LABS: HCT 46.9 % (39.0-53.0); HGB 15.5 gm/dL (13.0-17.5); MCH 33.1 pg (25.0-35.0); MCHC 33.1 g/dL (31.0-37.0); MCV 100.2 fL (80.0-100.0); Mean Platelet Volume 7.7; RBC 4.68 m/uL (4.30-5.90); RDW 13.7 % (11.5-15.5); WBC 5.8 k/uL (3.8-10.6)
[2023-11-13 12:33] LABS: Platelet Count 96 k/uL (150-450)
--- NOTE | 2023-11-13 12:33 | P.PN ---
Subjective Progress Note Date: 11/13/23 No acute events overnight. Tolerating diet without issue. No nausea no vomiting. No reflux. Admits to flatus. Voiding. Objective - Vital Signs Vital signs: Vital Signs Temp 98.1 F 11/13/23 09:22 Pulse 84 11/13/23 12:07 Resp 18 11/13/23 12:07 BP 132/75 11/13/23 12:07 Pulse Ox 93 L 11/13/23 12:07 FiO2 80 11/10/23 03:50 Intake & Output 11/12/23 11/13/23 11/13/23 18:59 06:59 18:59 Intake Total 358 118 Output Total 450 650 550 Balance -92 -650 -432 Weight 105 kg Intake: Oral 358 118 Output: Urine 450 650 550 Other: Voiding Method Urinal Urinal Urinal - Exam Gen: AxO, NAD Pulm: non-labored respirations Abd: soft, non-tender, minimally distended. No guarding/rebound/rigidity Extrem: no edema seen - Labs CBC & Chem 7: 11/13/23 10:30 11/13/23 10:30 Labs: Abnormal Lab Results - Last 24 Hours (Table) 11/12/23 11/13/23 11/13/23 Range/Units 16:35 00:03 06:09 MCV (80.0-100.0) fL Carbon Dioxide (22-30) mmol/L Glucose (74-99) mg/dL POC Glucose (mg/dL) 150 H 118 H 140 H (70-110) mg/dL Calcium (8.4-10.2) mg/dL Total Protein (6.3-8.2) g/dL Albumin (3.5-5.0) g/dL 11/13/23 11/13/23 Range/Units 10:30 10:30 MCV 100.2 H (80.0-100.0) fL Carbon Dioxide 34 H (22-30) mmol/L Glucose 128 H (74-99) mg/dL POC Glucose (mg/dL) (70-110) mg/dL Calcium 7.8 L (8.4-10.2) mg/dL Total Protein 5.6 L (6.3-8.2) g/dL Albumin 3.2 L (3.5-5.0) g/dL Microbiology - Last 24 Hours (Table) 11/09/23 13:28 Blood Culture - Preliminary Blood 11/09/23 13:28 Blood Culture - Preliminary Blood Assessment and Plan Assessment: Patient is a 88-year-old male with a large type IV paraesophageal hernia Plan: -Diet as tolerated -Recommend PPI therapy -PRN Pain and nausea control -No acute surgical intervention Dev Almodovar MD General Surgery
--- NOTE | 2023-11-13 12:34 | P.PN ---
Subjective HISTORY OF PRESENT ILLNESS: This is a 88-year-old male with a past medical history significant for atrial flutter, hypertension, and hyperlipidemia. Patient follows in the office with Dr. Salas. We have been asked to see the patient in consultation for hypoxia. Patient examined at the bedside. Patient states he came to the emergency room because his family was concerned about him. He states that he thought he was having a panic attack. He states that his upper extremities were shaking vigorously. He does report having a fever. He denied any chest pain or pressure. He reported having some shortness of breath which is chronic for him. The patient was found to be hypoxic upon arrival to the emergency room and was started on BiPAP. This morning he states his shortness of breath is at his baseline. He is currently on nasal cannula at the time of examination. The patient was also found to be febrile. Patient was diagnosed with a UTI and started on IV antibiotics. The patient has a known history of atrial flutter and is scheduled for an ablation on December 27, [address] Salas DIAGNOSTICS: - EKG reveals atrial flutter with controlled ventricular rate. - Chest xray elevated hemidiaphragm of the left with bilateral lower lobe infiltrate. Correlate for pneumonia.. - Laboratory data: WBC 3.8. Hemoglobin 14.8. Platelet count 94. Sodium 137. Potassium 3.7. BUN 18. Creatinine 0.93. Lactic acid 1.3. Troponin negative x 1. proBNP 541. - Current home cardiac medications include lovastatin 40 mg at night, amlodip ine/benazepril 5-20 mg twice a day, Eliquis 2.5 mg twice a day, aspirin 81 mg daily. 11/11/2023 Patient examined this morning at the bedside. Patient's daughter is present. Patient currently denies any chest pain or pressure. He reports improvement in his shortness of breath. He remains on IV Lasix per pulmonary medicine. Telemetry reveals atrial flutter with controlled ventricular rate. Patient was evaluated by CT surgery and is scheduled to undergo robotic assisted laparoscopy with gastropexy, G-tube placement and EGD for Wednesday, November 15, 2023 to be performed by Dr. Landa. Echocardiogram completed revealing ejection fraction 55 to 60%, mild pulmonary hypertension, trace to mild MR, mild TR. 11/12/2023 Patient examined this morning at bedside. Patient was initially scheduled for surgery with CT surgery on Wednesday. However he has been evaluated by general surgery who did not think surgery was indicated. CT surgery has canceled planned surgery. His Eliquis has been resumed. He remains on IV diuretics per pulmonary medicine. Patient underwent Lexiscan today which was negative for ischemia 11/13/2023 Patient examined this morning at the bedside. Patient denies chest pain or pressure. He denies shortness of breath. Patient was up ambulating in the hallways this morning. He does report mild shortness of breath at the end of his walk. Patient is tolerating oral intake. Vital signs are stable. PHYSICAL EXAM: VITAL SIGNS: Reviewed. GENERAL: Well-developed in no acute distress. HEENT: Head is normocephalic. Pupils are equal, round. Sclerae anicteric. Mucous membranes of the mouth are moist. Neck supple. No JVD or thyromegaly LUNGS: Respirations even and unlabored. Lungs essentially clear to auscultation bilaterally. HEART: Regular rate and rhythm. S1 and S2 heard. ABDOMEN: Soft. Nondistended. Nontender. EXTREMITIES: Normal range of motion. No clubbing or cyanosis. Peripheral pulses intact. Minimal lower extremity edema NEUROLOGIC: Awake and alert. Oriented x 3. ASSESSMENT: Acute hypoxic respiratory failure Urinary tract infection Persistent typical atrial flutter with controlled ventricular rate Chronic heart failure with preserved EF, currently appears to be euvolemic, BNP 541 Fever with rigors Hypertension Hyperlipidemia Large hiatal hernia PLAN: Continue IV Lasix per pulmonary. May be transitioned to oral diuretics from a cardiology standpoint Continue additional cardiac medications Patient scheduled for atrial flutter ablation with Dr. Salas on December 27, 2023 Patient is stable for discharge from a cardiac standpoint Further recommendations pending patient course Nurse practitioner note has been reviewed by physician. Signing provider agrees with the documented findings, assessment, and plan of care documented by CUT[employer]KE [employer]ING as a scribe. Objective - Vital Signs Vital signs: Vital Signs Temp 98.1 F 11/13/23 09:22 Pulse 84 11/13/23 12:07 Resp 18 11/13/23 12:07 BP 132/75 11/13/23 12:07 Pulse Ox 93 L 11/13/23 12:07 FiO2 80 11/10/23 03:50 Intake & Output 11/12/23 11/13/23 11/13/23 18:59 06:59 18:59 Intake Total 358 118 Output Total 450 650 550 Balance -92 -632 -791 Weight 105 kg Intake: Oral 358 118 Output: Urine 450 650 550 Other: Voiding Method Urinal Urinal Urinal - Labs CBC & Chem 7: 11/13/23 10:30 11/13/23 10:30 Labs: Abnormal Lab Results - Last 24 Hours (Table) 11/12/23 11/13/23 11/13/23 Range/Units 16:35 00:03 06:09 MCV (80.0-100.0) fL Carbon Dioxide (22-30) mmol/L Glucose (74-99) mg/dL POC Glucose (mg/dL) 150 H 118 H 140 H (70-110) mg/dL Calcium (8.4-10.2) mg/dL Total Protein (6.3-8.2) g/dL Albumin (3.5-5.0) g/dL 11/13/23 11/13/23 Range/Units 10:30 10:30 MCV 100.2 H (80.0-100.0) fL Carbon Dioxide 34 H (22-30) mmol/L Glucose 128 H (74-99) mg/dL POC Glucose (mg/dL) (70-110) mg/dL Calcium 7.8 L (8.4-10.2) mg/dL Total Protein 5.6 L (6.3-8.2) g/dL Albumin 3.2 L (3.5-5.0) g/dL Microbiology - Last 24 Hours (Table) 11/09/23 13:28 Blood Culture - Preliminary Blood 11/09/23 13:28 Blood Culture - Preliminary Blood
--- NOTE | 2023-11-13 12:34 | P.PN ---
Subjective Progress Note Date: 11/13/23 Hospital course: Patient is a very pleasant 88-year-old male with a past medical history of atrial fibrillation on anticoagulation with Eliquis, hypertension, and BPH. He presented to the emergency department on 11/09/2023 in respiratory distress after calling EMS for shortness of breath. Per documentation in chart patient arrived to the ED with SpO2 of 67% on room air. Vital signs upon arrival positive for sepsis with blood pressure 109/59, heart rate 105, respiratory rate 17, temp 100.7 F, and SpO2 of 67% on room air requiring O2 supplementation 6 L for an SpO2 of 90% and later titrated upwards eventually placing patient on BiPAP with an FiO2 of 100% maintaining SpO2 of 96% or above. EKG upon arrival showing atrial fibrillation/flutter with a controlled ventricular rate of 88 bpm and a right bundle branch block with QRS duration of 142 ms. Chest x-ray showing elevated hemidiaphragm on the left with bilateral lobe lower infiltrate concerning for pneumonia. CTA chest was completed showing a large hiatal hernia containing the stomach taking the majority of the left lung with mild cardiomegaly and coronary artery atherosclerosis. Labs completed and reviewed. CBC showing thrombocytopenia with platelet count of 94. Coagulation profile rex wing slightly low PTT of 21.8. BMP was unremarkable. Lactic acid normal findings at 1.3. Liver profile unremarkable. Calcium 7.8 with albumin of 3.0 indicating a corrected calcium of 8.6. Troponin was negative at less than 0.012 and proBNP was 541. Urinalysis positive for blood nitrates and greater than 182 RBCs not specific for infection showing only 16 WBCs. Influenza A, influenza B, RSV, and COVID PCR were negative. Patient admitted under our services with consultation to pulmonology and general surgery. Patient later went into atrial fibrillation with RVR and given an amiodarone bolus followed by placement on maintenance amiodarone infusion. Ventricular rate was controlled. Patient was evaluated by cardiology recommending no further need for amiodarone and discontinuing at this time. Echocardiogram was completed, report not available but per cardiology stating echocardiogram revealing a preserved EF of 55 to 60% with mild pulmonary hypertension and trace to mild mitral and tricuspid regurgitation. Barium swallow was completed showing esophageal dysmotility with large hiatal hernia with the stomach in the thorax. He was evaluated by general surgery who then consulted cardiothoracic surgery for evaluation of hiatal hernia management. Initial plan was for patient to undergo repair of hiatal hernia with cardiothoracic surgery, however general surgery stating after review of esophagram there is no indication for surgery at this point as patient has no signs of obstruction and due to chronic nature of hernia, they do not recommend patient undergoing surgery at this time. Stress test was completed and report showing nonischemic EKG response to Lexiscan infusion revealing baseline atrial flutter. Lexiscan stress test report showing no scintigraphic evidence for reversible ischemia. Physical exam: Patient seen and fully scintigraphicdside. He reports feeling better and breathing better today this morning he remained on 3 L of oxygen, We are attempting to wean him down from oxygen today with goal for discharge home tomorrow. Patient to increase activity today and wean from oxygen. Vital signs reviewed and stable. General: Nontoxic, no distress and appears stated age. Derm: Skin warm and dry, normal coloration for ethnicity. Head: Atraumatic, normocephalic and symmetric. Eyes: EOMs intact, no lid lag, and anicteric sclera Mouth: no lip lesions, mucus membranes moist Cardiovascular: regular rate and rhythm with normal S1S2, no murmur, positive posterior tibial pulses bilaterally, and cap refill < 2 seconds. Lungs: Respirations even, regular, and unlabored on 3 L O2 via NC. Lungs diminished. Abdominal: soft, nontender to palpation, no guarding, no appreciable organomegaly Ext: ROM intact. No gross muscle atrophy, scant lower extremity edema, no contractures Neuro: Speech clear, face symmetrical and CN II-XII grossly intact with no noted focal neuro deficits Psych: Alert and oriented to person, place, time, and situation. Appropriate and pleasant affect. Assessment and Plan of Care: Acute respiratory failure with hypoxia and hypercapnia Suspected Bilateral lower lobe pneumonia, possible aspiration as pt reported dy sphasia -Continue supplemental oxygen and/or BiPAP as needed, titrate to maintain SPO2 equal to or greater than 90% -Continuous telemetry monitoring. -Monitor pulse-oximetry -Duonebs scheduled 4 times daily and as needed for SOB and/or wheezing -Continue IV antibiotics with Unasyn 3 g IVPB every 8 hours and doxycycline 100 mg IVPB every 12 hours, day 4 of antibiotics -Blood culture showing no growth to date. -Pulmonology following, discussed plan of care with Dr. Louise. Large hiatal hernia taking the majority of the left lung space -CTA chest was completed showing a large hiatal hernia containing the stomach taking the majority of the left lung. -Barium swallow was completed showing esophageal dysmotility with large hiatal h ernia with the stomach in the thorax. -Patient was evaluated by general surgery who then consulted cardiothoracic surgery for evaluation of hiatal hernia management. Cardiothoracic surgery evaluated and initial plan was for patient to undergo repair of hiatal hernia with cardiothoracic surgery, however general surgery stating after review of esophagram stated there is no indication for surgery at this point as patient has no signs of obstruction and due to chronic nature of hernia, they do not recommend patient undergoing surgery at this time. Atrial fibrillation and flutter with RVR Chronic diastolic heart failure Hypertension -Cardiology following, reviewed documentation in chart.. -Telemetry monitoring -Troponin was negative at less than 0.012 and proBNP was only 541. -Continue cardiac medication regimen with aspirin 81 mg daily, atorvastatin 10 mg nightly, Eliquis 2.5 mg twice daily, amlodipine 5 mg twice daily and lisinopril 20 mg twice daily. -Patient started on Lasix 20 mg IVP per pulmonology -Echocardiogram was completed report not available yet for review however cardiology reporting echocardiogram showing preserved EF of 55 to 60% with mild pulmonary hypertension and trace to mild mitral and tricuspid regurgitation. -Stress test was completed and report showing nonischemic EKG response to Lexiscan infusion revealing baseline atrial flutter and Lexiscan report showing no scintigraphic evidence for reversible ischemia. Abnormal urinalysis, UTI ruled out -Urinalysis positive for blood, nitrates, leukocytes, greater than 182 RBCs but only 16 WBCs which is not convincing for infection and patient currently denies any urinary complaints including frequency, urgency, or dysuria. -Urine culture negative, UTI ruled out BPH -Continue Flomax 0.4 mg twice daily. Data and imaging reviewed: -Morning labs reviewed. CBC unremarkable. BMP showing mild hypercarbia with bicarb of 34 otherwise normal findings. Blood glucose 128. Magnesium 1.9. Liver profile normal findings. -Vital signs reviewed. Blood pressure 148/87, heart rate 84, respiratory rate 18, temp 98.1 F, and SpO2 of 94% on 3 L. CODE STATUS: Full code DVT prophylaxis: Eliquis Anticipated discharge date: Likely discharge within the next 24 to 48 hours, attempting to wean patient down from oxygen and increase activity Anticipated discharge place: Home Patient was seen independently by Nurse Pracitioner. This document was prepared using [employer] dictation software. Please allow for errors in [employer] console operator track, while rare they do occur. Rogers Leyva DIRECTOR BUSINESS INTELLIGENCE rendered care for this patient independently, reviewed the findings and plan as documented in the note above. I did not physically speak with or examine the patient on this date. Objective - Vital Signs Vital signs: Vital Signs Temp 97.9 F 11/12/23 19:37 Pulse 88 11/13/23 08:34 Resp 18 11/13/23 04:00 BP 109/51 11/13/23 04:00 Pulse Ox 92 L 11/13/23 08:23 FiO2 80 11/10/23 03:50 Intake & Output 11/12/23 11/13/23 11/13/23 18:59 06:59 18:59 Intake Total 358 118 Output Total 450 650 Balance -92 -650 118 Weight 105 kg Intake: Oral 358 118 Output: Urine 450 650 Other: Voiding Method Urinal Urinal - Labs CBC & Chem 7: 11/13/23 10:30 11/13/23 10:30 Labs: Abnormal Lab Results - Last 24 Hours (Table) 11/12/23 11/13/23 11/13/23 Range/Units 16:35 00:03 06:09 POC Glucose (mg/dL) 150 H 118 H 140 H (70-110) mg/dL Microbiology - Last 24 Hours (Table) 11/09/23 13:28 Blood Culture - Preliminary Blood 11/09/23 13:28 Blood Culture - Preliminary Blood
--- NOTE | 2023-11-13 13:38 | P.PN ---
Subjective Progress Note Date: 11/13/23 On today's evaluation of the , the patient was taken off the BiPAP and the patient is currently on 8 L of O2 nasal cannula which was further weaned down to 6 L. Current pulse ox is in the order of 95%. Cardiac rhythm is A-fib yet with a controlled rate. Awaiting repeat labs from today.The patient remains on Lasix 20 g IV every 12 hours. The patient remains on anticoagulation with Eliquis 2.5 mg twice a day. He was started with empiric antibiotic coverage and the patient is currently on IV Unasyn and doxycycline. Awake and alert and ommunicating. The patient has no significant dyspnea at rest. On today's evaluation of 11/11/2023, the patient is being seen for a follow-up. The patient is stable on 2 L of oxygen by nasal cannula. No significant respiratory distress. A barium swallow was completed and the patient was found to have some esophageal dysmotility with a large intrathoracic hiatal hernia in place. As such, the patient has undergone various consultation along with gene ral surgery and the patient was evaluated by 2 general surgeons and thoracic surgery. Patient is being considered for gastropexy and a PEG tube insertion. However, the final decision regarding surgical intervention has not been done. The patient's blood work today shows a BUN of 25 with a creatinine 1.06. WBC count of 10.6 with a hemoglobin 13.8 and a platelet count of 100. The patient remains on IV Unasyn. The patient is also on Lasix 20 mg IV every 12 hours. He is on aspirin. He is on anticoagulation with Eliquis 2.5 mg p.o. twice a day. Rest of the medication remains unchanged. Awake and alert and communicating. Follow-up chest x-rays to be obtained for tomorrow.Echocardiogram completed revealing ejection fraction 55 to 60%, mild pulmonary hypertension, trace to mild MR, mild TR. the cardiac rhythm is a flutter with a controlled rate. The patient is currently off amiodarone. On today's evaluation of 11/12/2023, patient is resting comfortably in bed with no specific complaints. He is currently on 3 days of oxygen by nasal cannula. Repeat chest x-ray was done today and shows cardiomegaly and pulm vessel congestion and pleural effusions and a intrathoracic left-sided hiatal hernia which is quite fairly large in size. After having a nice discussion with the general surgical team and the thoracic team, we decided not to operate on this patient's hiatal hernia. The patient meanwhile is being diuresed with Lasix. The patient is found to have milligrams of IV Lasix every 12 hours. The patient is also on IV Unasyn covering for any aspiration pneumonia. Doing well with no specific complaints. His blood work needs to be repeated tomorrow. His kidney function was improving. His cardiac rhythm is sinus. He is also on anticoagulation with Eliquis 2.5 mg p.o. twice a day. Feeling well. No specific complaints. Awake and alert.The cardiac stress test was also completed and showed no evidence of any reversible ischemia. Today's evaluation of 11/12/2022, the patient is being seen for a follow-up. He is currently down to 2 L of oxygen by nasal cannula. Repeat chest x-ray was done and shows small left-sided pleural effusion. The patient also has a int rathoracic hiatal hernia on the left. Cardiac rhythm is sinus. The patient is calm and comfortable. Oxygenation is gradually improved and the patient is currently down to 2 L of oxygen by nasal cannula. Sodium is at 140, potassium is at 3.7, chloride is at 103 with a bicarb of 34, BUN is at 10 with a creatinine of 0.7. WBC count is at 5.8 with a hemoglobin of 15.5. The patient has no specific complaints otherwise. He remains on IV Unasyn. This can be transition to Augmentin. He is also on Lasix 20 mg IV every 12 hours. This can be transition to oral diuretics. The patient remains on anticoagulation with Eliquis 2.5 mg twice a day. The patient is also on Norvasc. No other signifi cant events overnight. Pulse ox can be also monitored and FiO2 can be further weaned down. Objective - Vital Signs Vital signs: Vital Signs Temp 98.1 F 11/13/23 09:22 Pulse 84 11/13/23 12:07 Resp 18 11/13/23 12:07 BP 132/75 11/13/23 12:07 Pulse Ox 93 L 11/13/23 12:07 FiO2 80 11/10/23 03:50 Intake & Output 11/12/23 11/13/23 11/13/23 18:59 06:59 18:59 Intake Total 358 118 Output Total 450 650 550 Balance -92 -650 -432 Weight 105 kg Intake: Oral 358 118 Output: Urine 450 650 550 Other: Voiding Method Urinal Urinal Urinal - Exam General appearance the patient is calm and comfortable tolerating oxygen by nasal cannula at 2 L/min. Awake and alert and communicating. Head exam was generally normal. There was no scleral icterus or corneal arcus. Mucous membranes were moist. Neck was supple and without jugular venous distension, thyromegaly, or carotid bruits. Carotids were easily palpable bilaterally. There was no adenopathy. Lung sounds are diminished bilaterally and few crackles in lung bases and breath sounds are quite diminished in left lung base. Heart sounds are irregular tachycardic consistent with atrial fibrillation. Overall heart sounds are distant. Abdominal exam revealed normal bowel sounds. The abdomen was soft, non-tender, and without masses, organomegaly, or appreciable enlargement of the abdominal aorta. The patient is obese and organs cannot be accurately palpated. Extremities reveal +1 edema and there is no cyanosis or clubbing at this point in time. Neurologically, moving all 4 extremities there is no focal neurological deficit. - Labs CBC & Chem 7: 11/13/23 10:30 11/13/23 10:30 Labs: Abnormal Lab Results - Last 24 Hours (Table) 11/12/23 11/13/23 11/13/23 Range/Units 16:35 00:03 06:09 MCV (80.0-100.0) fL Plt Count (150-450) k/uL Carbon Dioxide (22-30) mmol/L Glucose (74-99) mg/dL POC Glucose (mg/dL) 150 H 118 H 140 H (70-110) mg/dL Calcium (8.4-10.2) mg/dL Total Protein (6.3-8.2) g/dL Albumin (3.5-5.0) g/dL 11/13/23 11/13/23 Range/Units 10:30 10:30 MCV 100.2 H (80.0-100.0) fL Plt Count 96 L (150-450) k/uL Carbon Dioxide 34 H (22-30) mmol/L Glucose 128 H (74-99) mg/dL POC Glucose (mg/dL) (70-110) mg/dL Calcium 7.8 L (8.4-10.2) mg/dL Total Protein 5.6 L (6.3-8.2) g/dL Albumin 3.2 L (3.5-5.0) g/dL Microbiology - Last 24 Hours (Table) 11/09/23 13:28 Blood Culture - Preliminary Blood 11/09/23 13:28 Blood Culture - Preliminary Blood Assessment and Plan Plan: Acute hypoxic/hypercapnic respiratory failure. Patient is currently off the BiPAP and he has been weaned down to 2 L of oxygen by nasal cannula.. Blood gas shows a component of chronic hypercapnic respiratory failure and is quite expected as the patient has a large hiatal hernia occupying the majority of the left lung causing some restrictive physiology on his lungs. Note that the patient is not oxygen dependent. He is obese. There may be a component of CHF in the setting of A-fib RVR contributing to his acute hypoxic and hypercapnic respiratory failure. No evidence of pneumonia. No evidence of any pulmonary embolism based on the CTA of the chest. the patient has responded to diuretics and cardiac rhythm seems to be sinus at this point in time. Shortness of breath secondary to above, acute, improving Paroxysmal atrial fibrillation with controlled rate currently on anticoagulation with Eliquis 2.5 mg twice a day, cardiac rhythm is a flutter with a controlled rate and the patient is currently off amiodarone. The patient's cardiac rhythm remained sinus. The cardiac Lexiscan stress test came back negative for any reversible ischemia. Large hiatal hernia occupying the majority of the left hemithorax along with atelectatic changes in the left lung base, no plans for surgery at this point in time based on age and comorbidities Hypertension Hyperlipidemia BPH History of skin cancer in the form of basal cell carcinoma resected from his left earlobe. Plan Patient is on 2 L O2 nasal cannula, should be able to be further weaned to room air oxygen. Cardiac stress has been negative Echocardiogram from before with a preserved LV function Continue anticoagulation with Eliquis Switch this patient to Lasix 40 mg p.o. twice a day Continue Unasyn pending further cultures stop IV Unasyn and switch this patient to oral Augmentin Assess need for home O2 and the patient will have the O2 checked with activity and at rest on room air oxygen. Will establish again a CODE STATUS. Based on preliminary conversations with the family, the patient does not want any heroic measures. I am assuming that he is a DNI CODE STATUS at this point in Will continue to follow.
[2023-11-13] MEDS: AMOXIC-POT CLAV 875-125MG 1 EACH TAB PO SCH (15:45)
[2023-11-13] MEDS: FUROSEMIDE 40 MG TAB PO SCH (15:45)
[2023-11-13 17:52] LABS: Glucose,Whole Blood 135 mg/dL (70-110)
[2023-11-14 00:14] LABS: Glucose,Whole Blood 98 mg/dL (70-110)
[2023-11-14 06:22] LABS: Glucose,Whole Blood 99 mg/dL (70-110)
[2023-11-14 12:01] LABS: Glucose,Whole Blood 113 mg/dL (70-110)
--- NOTE | 2023-11-14 13:16 | P.PN ---
Subjective Progress Note Date: 11/14/23 On today's evaluation of the , the patient was taken off the BiPAP and the patient is currently on 8 L of O2 nasal cannula which was further weaned down to 6 L. Current pulse ox is in the order of 95%. Cardiac rhythm is A-fib yet with a controlled rate. Awaiting repeat labs from today.The patient remains on Lasix 20 g IV every 12 hours. The patient remains on anticoagulation with Eliquis 2.5 mg twice a day. He was started with empiric antibiotic coverage and the patient is currently on IV Unasyn and doxycycline. Awake and alert and ommunicating. The patient has no significant dyspnea at rest. On today's evaluation of 11/11/2023, the patient is being seen for a follow-up. The patient is stable on 2 L of oxygen by nasal cannula. No significant respiratory distress. A barium swallow was completed and the patient was found to have some esophageal dysmotility with a large intrathoracic hiatal hernia in place. As such, the patient has undergone various consultation along with gene ral surgery and the patient was evaluated by 2 general surgeons and thoracic surgery. Patient is being considered for gastropexy and a PEG tube insertion. However, the final decision regarding surgical intervention has not been done. The patient's blood work today shows a BUN of 25 with a creatinine 1.06. WBC count of 10.6 with a hemoglobin 13.8 and a platelet count of 100. The patient remains on IV Unasyn. The patient is also on Lasix 20 mg IV every 12 hours. He is on aspirin. He is on anticoagulation with Eliquis 2.5 mg p.o. twice a day. Rest of the medication remains unchanged. Awake and alert and communicating. Follow-up chest x-rays to be obtained for tomorrow.Echocardiogram completed revealing ejection fraction 55 to 60%, mild pulmonary hypertension, trace to mild MR, mild TR. the cardiac rhythm is a flutter with a controlled rate. The patient is currently off amiodarone. On today's evaluation of 11/12/2023, patient is resting comfortably in bed with no specific complaints. He is currently on 3 days of oxygen by nasal cannula. Repeat chest x-ray was done today and shows cardiomegaly and pulm vessel congestion and pleural effusions and a intrathoracic left-sided hiatal hernia which is quite fairly large in size. After having a nice discussion with the general surgical team and the thoracic team, we decided not to operate on this patient's hiatal hernia. The patient meanwhile is being diuresed with Lasix. The patient is found to have milligrams of IV Lasix every 12 hours. The patient is also on IV Unasyn covering for any aspiration pneumonia. Doing well with no specific complaints. His blood work needs to be repeated tomorrow. His kidney function was improving. His cardiac rhythm is sinus. He is also on anticoagulation with Eliquis 2.5 mg p.o. twice a day. Feeling well. No specific complaints. Awake and alert.The cardiac stress test was also completed and showed no evidence of any reversible ischemia. Today's evaluation of 11/12/2022, the patient is being seen for a follow-up. He is currently down to 2 L of oxygen by nasal cannula. Repeat chest x-ray was done and shows small left-sided pleural effusion. The patient also has a int rathoracic hiatal hernia on the left. Cardiac rhythm is sinus. The patient is calm and comfortable. Oxygenation is gradually improved and the patient is currently down to 2 L of oxygen by nasal cannula. Sodium is at 140, potassium is at 3.7, chloride is at 103 with a bicarb of 34, BUN is at 10 with a creatinine of 0.7. WBC count is at 5.8 with a hemoglobin of 15.5. The patient has no specific complaints otherwise. He remains on IV Unasyn. This can be transition to Augmentin. He is also on Lasix 20 mg IV every 12 hours. This can be transition to oral diuretics. The patient remains on anticoagulation with Eliquis 2.5 mg twice a day. The patient is also on Norvasc. No other signifi cant events overnight. Pulse ox can be also monitored and FiO2 can be further weaned down. On today's evaluation of 11/14/2023, the patient is on room air oxygen with a pulse ox around 88 to 89%. No respiratory difficulties. He will likely need home O2. Afebrile and hemodynamically stable. Cardiac rhythm is sinus. No new labs are available from today. The patient has no altered mentation. Remains on anticoagulation with Eliquis 2.5 mg twice a day. Diuretics has been switched to oral 40 mg p.o. twice daily patient is currently on oral Augmentin. Objective - Vital Signs Vital signs: Vital Signs Temp 98.1 F 11/14/23 07:25 Pulse 74 11/14/23 08:33 Resp 19 11/14/23 07:25 BP 160/89 11/14/23 07:25 Pulse Ox 85 L 11/14/23 07:25 FiO2 80 11/10/23 03:50 Intake & Output 11/13/23 11/14/23 11/14/23 18:59 06:59 18:59 Intake Total 476 Output Total 950 1075 100 Balance -474 -1075 -100 Weight 103.7 kg Intake: Oral 476 Output: Urine 950 1075 100 Other: Voiding Method Urinal Urinal Urinal # Voids 1 # Bowel Movements 1 - Exam General appearance the patient is calm and comfortable tolerating oxygen by nasal cannula at 2 L/min. Awake and alert and communicating. Head exam was generally normal. There was no scleral icterus or corneal arcus. Mucous membranes were moist. Neck was supple and without jugular venous distension, thyromegaly, or carotid bruits. Carotids were easily palpable bilaterally. There was no adenopathy. Lung sounds are diminished bilaterally and few crackles in lung bases and breath sounds are quite diminished in left lung base. Heart sounds are irregular tachycardic consistent with atrial fibrillation. Overall heart sounds are distant. Abdominal exam revealed normal bowel sounds. The abdomen was soft, non-tender, and without masses, organomegaly, or appreciable enlargement of the abdominal aorta. The patient is obese and organs cannot be accurately palpated. Extremities reveal +1 edema and there is no cyanosis or clubbing at this point in time. Neurologically, moving all 4 extremities there is no focal neurological deficit. - Labs CBC & Chem 7: 11/13/23 10:30 11/13/23 10:30 Labs: Abnormal Lab Results - Last 24 Hours (Table) 11/13/23 11/13/23 11/13/23 Range/Units 10:30 10:30 17:48 MCV 100.2 H (80.0-100.0) fL Plt Count 96 L (150-450) k/uL Carbon Dioxide 34 H (22-30) mmol/L Glucose 128 H (74-99) mg/dL POC Glucose (mg/dL) 135 H (70-110) mg/dL Calcium 7.8 L (8.4-10.2) mg/dL Total Protein 5.6 L (6.3-8.2) g/dL Albumin 3.2 L (3.5-5.0) g/dL Assessment and Plan Plan: Acute hypoxic/hypercapnic respiratory failure. Patient is currently off the BiPAP and he has been weaned down to 2 L of oxygen by nasal cannula.. Blood gas shows a component of chronic hypercapnic respiratory failure and is quite expected as the patient has a large hiatal hernia occupying the majority of the left lung causing some restrictive physiology on his lungs. Note that the patient is not oxygen dependent. He is obese. There may be a component of CHF in the setting of A-fib RVR contributing to his acute hypoxic and hypercapnic respiratory failure. No evidence of pneumonia. No evidence of any pulmonary embolism based on the CTA of the chest. the patient has responded to diuretics and cardiac rhythm seems to be sinus at this point in time. Shortness of breath secondary to above, acute, improving Paroxysmal atrial fibrillation with controlled rate currently on anticoagulation with Eliquis 2.5 mg twice a day, cardiac rhythm is a flutter with a controlled rate and the patient is currently off amiodarone. The patient's cardiac rhythm remained sinus. The cardiac Lexiscan stress test came back negative for any reversible ischemia. Large hiatal hernia occupying the majority of the left hemithorax along with atelectatic changes in the left lung base, no plans for surgery at this point in time based on age and comorbidities Hypertension Hyperlipidemia BPH History of skin cancer in the form of basal cell carcinoma resected from his left earlobe. Plan Clinically stable Patient is on 2 L O2 nasal cannula, should be able to be further weaned to room air oxygen. The patient may need home O2 and this will be decided at time of discharge. Cardiac stress has been negative Echocardiogram from before with a preserved LV function Continue anticoagulation with Eliquis Continue to Lasix 40 mg p.o. twice a day Continue oral Augmentin Assess need for home O2 and the patient will have the O2 checked with activity and at rest on room air oxygen. Will establish again a CODE STATUS. Based on preliminary conversations with the family, the patient does not want any heroic measures. I am assuming that he is a DNI CODE STATUS at this point in Will continue to follow.
--- NOTE | 2023-11-14 14:32 | P.PN ---
Subjective Progress Note Date: 11/14/23 Principal diagnosis: Discharge held as patient is pending oxygen. Had a low O2 sat that improved. Daughter at bedside. No reports of dysphagia as he is tolerating diet. Dischar ge pending medical clearance Objective - Vital Signs Vital signs: Vital Signs Temp 97.9 F 11/14/23 12:17 Pulse 88 11/14/23 12:17 Resp 19 11/14/23 12:17 BP 126/79 11/14/23 12:17 Pulse Ox 94 L 11/14/23 12:17 FiO2 80 11/10/23 03:50 Intake & Output 11/13/23 11/14/23 11/14/23 18:59 06:59 18:59 Intake Total 476 Output Total 950 1075 100 Balance -474 -1075 -100 Weight 103.7 kg Intake: Oral 476 Output: Urine 950 1075 100 Other: Voiding Method Urinal Urinal Urinal # Voids 1 # Bowel Movements 1 - Labs CBC & Chem 7: 11/13/23 10:30 11/13/23 10:30 Labs: Abnormal Lab Results - Last 24 Hours (Table) 11/13/23 11/14/23 Range/Units 17:48 11:59 POC Glucose (mg/dL) 135 H 113 H (70-110) mg/dL
--- NOTE | 2023-11-14 14:51 | P.PN ---
Subjective Progress Note Date: 11/14/23 Hospital course: Patient is a very pleasant 88-year-old male with a past medical history of atrial fibrillation on anticoagulation with Eliquis, hypertension, and BPH. He presented to the emergency department on 11/09/2023 in respiratory distress after calling EMS for shortness of breath. Per documentation in chart patient arrived to the ED with SpO2 of 67% on room air. Vital signs upon arrival positive for sepsis with blood pressure 109/59, heart rate 105, respiratory rate 17, temp 100.7 F, and SpO2 of 67% on room air requiring O2 supplementation 6 L for an SpO2 of 90% and later titrated upwards eventually placing patient on BiPAP with an FiO2 of 100% maintaining SpO2 of 96% or above. EKG upon arrival showing atrial fibrillation/flutter with a controlled ventricular rate of 88 bpm and a right bundle branch block with QRS duration of 142 ms. Chest x-ray showing elevated hemidiaphragm on the left with bilateral lobe lower infiltrate concerning for pneumonia. CTA chest was completed showing a large hiatal hernia containing the stomach taking the majority of the left lung with mild cardiomegaly and coronary artery atherosclerosis. Labs completed and reviewed. CBC showing thrombocytopenia with platelet count of 94. Coagulation profile rex wing slightly low PTT of 21.8. BMP was unremarkable. Lactic acid normal findings at 1.3. Liver profile unremarkable. Calcium 7.8 with albumin of 3.0 indicating a corrected calcium of 8.6. Troponin was negative at less than 0.012 and proBNP was 541. Urinalysis positive for blood nitrates and greater than 182 RBCs not specific for infection showing only 16 WBCs. Influenza A, influenza B, RSV, and COVID PCR were negative. Patient admitted under our services with consultation to pulmonology and general surgery. Patient later went into atrial fibrillation with RVR and given an amiodarone bolus followed by placement on maintenance amiodarone infusion. Ventricular rate was controlled. Patient was evaluated by cardiology recommending no further need for amiodarone and discontinuing at this time. Echocardiogram was completed, report not available but per cardiology stating echocardiogram revealing a preserved EF of 55 to 60% with mild pulmonary hypertension and trace to mild mitral and tricuspid regurgitation. Barium swallow was completed showing esophageal dysmotility with large hiatal hernia with the stomach in the thorax. He was evaluated by general surgery who then consulted cardiothoracic surgery for evaluation of hiatal hernia management. Initial plan was for patient to undergo repair of hiatal hernia with cardiothoracic surgery, however general surgery stating after review of esophagram there is no indication for surgery at this point as patient has no signs of obstruction and due to chronic nature of hernia, they do not recommend patient undergoing surgery at this time. Stress test was completed and report showing nonischemic EKG response to Lexiscan infusion revealing baseline atrial flutter. Lexiscan stress test report showing no scintigraphic evidence for reversible ischemia. Physical exam: Patient seen and fully evaluated at bedside this morning. He appears to be doing well he is maintaining oxygen saturation of around 90 to 93% on room air. Ambulatory pulse ox was completed and patient desaturating down to 85% with minimal exertion. Patient will likely need home oxygen. Discharge is being delayed secondary to inability to obtain home oxygen today. Will plan for discharge home tomorrow morning once home oxygen can be set up. Vital signs reviewed and stable. General: Nontoxic, no distress and appears stated age. Derm: Skin warm and dry, normal coloration for ethnicity. Head: Atraumatic, normocephalic and symmetric. Eyes: EOMs intact, no lid lag, and anicteric sclera Mouth: no lip lesions, mucus membranes moist Cardiovascular: regular rate and rhythm with normal S1S2, no murmur, positive posterior tibial pulses bilaterally, and cap refill < 2 seconds. Lungs: Respirations even, regular, and unlabored on 3 L O2 via NC. Lungs diminished. Abdominal: soft, nontender to palpation, no guarding, no appreciable organomegaly Ext: ROM intact. No gross muscle atrophy, scant lower extremity edema, no contractures Neuro: Speech clear, face symmetrical and CN II-XII grossly intact with no noted focal neuro deficits Psych: Alert and oriented to person, place, time, and situation. Appropriate and pleasant affect. Assessment and Plan of Care: Acute respiratory failure with hypoxia and hypercapnia Suspected Bilateral lower lobe pneumonia, possible aspiration as pt reported dysphasia -Continue supplemental oxygen and/or BiPAP as needed, titrate to maintain SPO2 equal to or greater than 90% -Continuous telemetry monitoring. -Monitor pulse-oximetry -Duonebs scheduled 4 times daily and as needed for SOB and/or wheezing -Continue antibiotics with Augmentin 875/125 mg tablets every 12 hours (today is day 5 of antibiotic therapy) -Blood culture revealed no growth -Pulmonology following, reviewed documentation in chart. Large hiatal hernia taking the majority of the left lung space -CTA chest was completed showing a large hiatal hernia containing the stomach taking the majority of the left lung. -Barium swallow was completed showing esophageal dysmotility with large hiatal hernia with the stomach in the thorax. -Patient was evaluated by general surgery who then consulted cardiothoracic surgery for evaluation of hiatal hernia management. Cardiothoracic surgery evaluated and initial plan was for patient to undergo repair of hiatal hernia with cardiothoracic surgery, however general surgery stating after review of esophagram stated there is no indication for surgery at this point as patient has no signs of obstruction and due to chronic nature of hernia, they do not recommend patient undergoing surgery at this time. Atrial fibrillation and flutter with RVR, maintaining controlled rate at this time Chronic diastolic heart failure Hypertension -Cardiology following, reviewed documentation in chart.. -Telemetry monitoring -Troponin was negative at less than 0.012 and proBNP was only 541. -Continue cardiac medication regimen with aspirin 81 mg daily, atorvastatin 10 mg nightly, Eliquis 2.5 mg twice daily, amlodipine 5 mg twice daily and lisinopril 20 mg twice daily. -Gardening Manager transition patient to oral Lasix 40 mg twice daily -Echocardiogram showing preserved EF of 55 to 60% with mild pulmonary hypertension and trace to mild mitral and tricuspid regurgitation. -Stress test was completed and report showing nonischemic EKG response to Lexiscan infusion revealing baseline atrial flutter and Lexiscan report showing no scintigraphic evidence for reversible ischemia. Abnormal urinalysis, UTI ruled out -Urinalysis positive for blood, nitrates, leukocytes, greater than 182 RBCs but only 16 WBCs which is not convincing for infection and patient currently denies any urinary complaints including frequency, urgency, or dysuria. -Urine culture negative, UTI ruled out BPH -Continue Flomax 0.4 mg twice daily. Data and imaging reviewed: -Ambulatory pulse ox was completed and patient desaturating down to 85% with minimal exertion. Patient will need home oxygen. -Vital signs reviewed. Blood pressure 160/89, heart rate 86, respiratory rate 19, temp 98.1 F, and SpO2 of 93% on room air desaturating to 85% with minimal exertion. CODE STATUS: Full code DVT prophylaxis: Eliquis Anticipated discharge date: Plans for discharge home tomorrow, patient will require home oxygen. Anticipated discharge place: Home Patient was seen independently by Nurse Pracitioner. This document was prepared using [employer] dictation software. Please allow for errors in identifier horse, while rare they do occur. Rogers Leyva EXTRUDING PRESS OPERATOR rendered care for this patient independently, reviewed the findings and plan as documented in the note above. I did not physically speak with or examine the patient on this date. Objective - Vital Signs Vital signs: Vital Signs Temp 97.6 F 11/14/23 02:00 Pulse 74 11/14/23 08:33 Resp 16 11/14/23 02:00 BP 131/72 11/14/23 02:00 Pulse Ox 93 L 11/14/23 02:00 FiO2 80 11/10/23 03:50 Intake & Output 11/13/23 11/14/23 11/14/23 18:59 06:59 18:59 Intake Total 476 Output Total 950 1075 Balance -474 -1075 Weight 103.7 kg Intake: Oral 476 Output: Urine 950 1075 Other: Voiding Method Urinal Urinal Urinal # Voids 1 - Labs CBC & Chem 7: 11/13/23 10:30 11/13/23 10:30 Labs: Abnormal Lab Results - Last 24 Hours (Table) 11/13/23 11/13/23 11/13/23 Range/Units 10:30 10:30 17:48 MCV 100.2 H (80.0-100.0) fL Plt Count 96 L (150-450) k/uL Carbon Dioxide 34 H (22-30) mmol/L Glucose 128 H (74-99) mg/dL POC Glucose (mg/dL) 135 H (70-110) mg/dL Calcium 7.8 L (8.4-10.2) mg/dL Total Protein 5.6 L (6.3-8.2) g/dL Albumin 3.2 L (3.5-5.0) g/dL
[2023-11-14 18:03] LABS: Glucose,Whole Blood 91 mg/dL (70-110)
[2023-11-14 20:18] VITALS: RESP 18
[2023-11-15 00:04] LABS: Glucose,Whole Blood 147 mg/dL (70-110)
[2023-11-15 07:19] LABS: HCT 49.2 % (39.0-53.0); HGB 15.8 gm/dL (13.0-17.5); MCH 32.2 pg (25.0-35.0); MCHC 32.1 g/dL (31.0-37.0); MCV 100.4 fL (80.0-100.0); Mean Platelet Volume 7.7; Platelet Count 128 k/uL (150-450); RDW 13.2 % (11.5-15.5); WBC 5.7 k/uL (3.8-10.6)
[2023-11-15 07:51] VITALS: BP 125/81; TEMP 97.3
[2023-11-15 08:04] LABS: African American GFR (CKD) 89 (>60 ml/min/1.73 sqM); Anion Gap 3 mmol/L; Blood Urea Nitrogen 15 mg/dL (9-20); Calcium 7.9 mg/dL (8.4-10.2); Carbon Dioxide 33 mmol/L (22-30); Chloride 102 mmol/L (98-107); Glucose 108 mg/dL (74-99); Non-African American GFR(CKD) 77 (>60 ml/min/1.73 sqM); Potassium 3.4 mmol/L (3.5-5.1); Sodium 138 mmol/L (137-145)
--- NOTE | 2023-11-15 10:51 | P.DS ---
Providers Date of admission: 11/09/23 17:52 Expected date of discharge: 11/15/23 Attending physician: Libertad Zarate DO Consults: 11/09/23 17:48 Consult Physician Urgent Consulting Provider: Best Castillo Consult Reason/Comments: Hypoxia Do you want consulting provider notified?: Yes 11/10/23 08:23 Consult Physician Routine Consulting Provider: Arti Devine Consult Reason/Comments: large hiatal hernia Do you want consulting provider notified?: Yes 11/10/23 11:14 Consult Physician Routine Consulting Provider: Joseph Sen Consult Reason/Comments: large hiatal hernia Do you want consulting provider notified?: Yes 11/11/23 08:16 Consult Physician Urgent Consulting Provider: Wolf Craig Consult Reason/Comments: Second opinion paraesophageal hiatal hernia Do you want consulting provider notified?: Yes Primary care physician: Hugh Walter [facility] Course: Discharge Diagnosis: Acute respiratory failure with hypoxia and hypercapnia. Multifactorial secondary to diastolic CHF and large hiatal hernia occupying the majority of the left lung space causing restrictive physiology on lungs. Patient was successfully weaned off of oxygen at rest however continued to desaturate with ambulation dropping down to 85% on room air. Patient requiring discharged home on home oxygen to maintain SpO2 of 90% or above. Suspected Bilateral lower lobe pneumonia, possible aspiration as pt reported dysphasia. Patient completed 5-day course of antibiotics. Large hiatal hernia taking the majority of the left lung space CTA chest was completed showing a large hiatal hernia containing the stomach taking the m ajority of the left lung. Patient was evaluated by general surgery who then consulted cardiothoracic surgery for evaluation of hiatal hernia management. Cardiothoracic surgery evaluated and initial plan was for patient to undergo repair of hiatal hernia with cardiothoracic surgery, however general surgery stating after review of esophagram stated there is no indication for surgery at this point as patient has no signs of obstruction and due to chronic nature of hernia, they do not recommend patient undergoing surgery at this time. Atrial fibrillation and flutter with RVR, maintaining controlled rate at this time. Continue Eliquis 2.5 mg twice daily. Chronic diastolic heart failure. Patient discharged home on Lasix 40 mg daily. Hypertension. Continue medication regimen with amlodipine 5 mg twice daily and lisinopril 20 mg twice daily. Abnormal urinalysis, UTI ruled out Urine culture negative, UTI ruled out BPH. Continue Flomax 0.4 mg twice daily. Hospital course: Patient is a very pleasant 88-year-old male with a past medical history of atrial fibrillation on anticoagulation with Eliquis, hypertension, and BPH. He presented to the emergency department on 11/09/2023 in respiratory distress after calling EMS for shortness of breath. Per documentation in chart patient arrived to the ED with SpO2 of 67% on room air. Vital signs upon arrival positive for sepsis with blood pressure 109/59, heart rate 105, respiratory rate 17, temp 100.7 F, and SpO2 of 67% on room air requiring O2 supplementation 6 L for an SpO2 of 90% and later titrated upwards eventually placing patient on BiPAP with an FiO2 of 100% maintaining SpO2 of 96% or above. EKG upon arrival showing atrial fibrillation/flutter with a controlled ventricular rate of 88 bpm and a right bundle branch block with QRS duration of 142 ms. Chest x-ray showing elevated hemidiaphragm on the left with bilateral lobe lower infiltrate concerning for pneumonia. CTA chest was completed showing a large hiatal hernia containing the stomach taking the majority of the left lung with mild cardiomegaly and coronary artery atherosclerosis. Labs completed and reviewed. CBC showing thrombocytopenia with platelet count of 94. Coagulation profile showing slightly low PTT of 21.8. BMP was unremarkable. Lactic acid normal findings at 1.3. Liver profile unremarkable. Calcium 7.8 with albumin of 3.0 indicating a corrected calcium of 8.6. Troponin was negative at less than 0.012 and proBNP was 541. Urinalysis positive for blood nitrates and greater than 182 RBCs not specific for infection showing only 16 WBCs. Influenza A, influenza B, RSV, and COVID PCR were negative. Patient admitted under our services with consultation to pulmonology and general surgery. Patient later went into atrial fibrillation with RVR and given an amiodarone bolus followed by placement on maintenance amiodarone infusion. Ventricular rate was controlled. Patient was evaluated by cardiology recommending no further need for amiodarone and discontinuing at this time. Echocardiogram was completed, report not available but per cardiology stating echocardiogram revealing a preserved EF of 55 to 60% with mild pulmonary hypertension and trace to mild mitral and tricuspid regurgitation. Barium swallow was completed showing esophageal dysmotility with large hiatal hernia with the stomach in the thorax. He was evaluated by general surgery who then consulted cardiothoracic surgery for evaluation of hiatal hernia management. Initial plan was for patient to undergo repair of hiatal hernia with cardiothoracic surgery, however general surgery stating after review of esophagram there is no indication for surgery at this point as patient has no signs of obstruction and due to chronic nature of hernia, they do not recommend patient undergoing surgery at this time. Stress test was completed and report showing nonischemic EKG response to Lexiscan infusion revealing baseline atrial flutter. Lexiscan stress test report showing no scintigraphic evidence for reversible ischemia. Patient completed 5-day course of antibiotics for suspected bilateral lower lobe pneumonia possibly secondary to aspiration. He was successfully weaned off of oxygen at rest, however continued to desaturate with ambulation dropping down to 85% on room air. Patient requiring home oxygen with ambulation. He is medically cleared by general surgery for discharge, cardiology cleared patient for discharge, and pulmonology cleared patient for discharge. Medically, patient is stable at this time. Arrangements for home oxygen have been made. Patient to follow-up outpatient with PCP in 1 to 2 days, net wpf developer in 1 week, and blueprint reproducer in 1 week. Physical exam: Vital signs reviewed and stable. General: Nontoxic, no distress and appears stated age. Derm: Skin warm and dry, normal coloration for ethnicity. Head: Atraumatic, normocephalic and symmetric. Eyes: EOMs intact, no lid lag, and anicteric sclera Mouth: no lip lesions, mucus membranes moist Cardiovascular: regular rate and rhythm with normal S1S2, no murmur, positive posterior tibial pulses bilaterally, and cap refill < 2 seconds. Lungs: Respirations even, regular, and unlabored on room air. Lungs diminished. Abdominal: soft, nontender to palpation, no guarding, no appreciable organomegaly Ext: ROM intact. No gross muscle atrophy, scant lower extremity edema, no contractures Neuro: Speech clear, face symmetrical and CN II-XII grossly intact with no noted focal neuro deficits Psych: Alert and oriented to person, place, time, and situation. Appropriate and pleasant affect. A total of 39 minutes of time were spent preparing this complex discharge summary. Pt was discharged on 11/15/2023 at 9:58 AM. Patient was seen independently by Nurse Practitioner. This document was prepared using [employer] dictation software. Please allow for errors in on call pharmacy technician while rare they do occur. Rogers Leyva NP rendered care for this patient independently, reviewed the findings and plan as documented in the note above. I did not physically speak with or examine the patient on this date. Patient Condition at Discharge: Stable Plan - Discharge Summary Discharge Rx Participant: No New Discharge Prescriptions: New Furosemide [Lasix] 40 mg PO DAILY 30 Days #30 tab Continue Tamsulosin HCl [Flomax] 0.4 mg PO BID Finasteride [Proscar] 5 mg PO DAILY Lovastatin [Mevacor] 40 mg PO HS amLODIPine BESYLATE/BENAZEPRIL [Lotrel 5-20 MG] 1 cap PO BID Vitamin C(Unknown Dose) 1 tab PO DAILY Ibandronate Sodium [Boniva] 150 mg PO Q30D Apixaban [Eliquis] 2.5 mg PO BID Famotidine [Pepcid] 40 mg PO BID Calcium 1000mg 1,000 mg PO DAILY polyethylene glycoL 3350 [Miralax] 17 gm PO DAILY Multivitamins, Thera [Multivitamin (formulary)] 1 tab PO DAILY Cholecalciferol [Vitamin D3 (25 Mcg = 1000 Iu)] 25 mcg PO DAILY Msm(Unknown Dose) 1 tab PO DAILY Aspirin EC [Ecotrin Low Dose] 81 mg PO DAILY Hydrocortisone Cream [Hydrocortisone 2.5% Cream] 1 applic TOPICAL BID PRN PRN Reason: Rash Discharge Medication List Tamsulosin HCl [Flomax] 0.4 mg PO BID 11/25/14 [History] Finasteride [Proscar] 5 mg PO DAILY 11/11/15 [History] Lovastatin [Mevacor] 40 mg PO HS 11/11/15 [History] amLODIPine BESYLATE/BENAZEPRIL [Lotrel 5-20 MG] 1 cap PO BID 11/11/15 [History] Apixaban [Eliquis] 2.5 mg PO BID 11/09/23 [History] Aspirin EC [Ecotrin Low Dose] 81 mg PO DAILY 11/09/23 [History] Calcium 1000mg 1,000 mg PO DAILY 11/09/23 [History] Cholecalciferol [Vitamin D3 (25 Mcg = 1000 Iu)] 25 mcg PO DAILY 11/09/23 [History] Famotidine [Pepcid] 40 mg PO BID 11/09/23 [History] Hydrocortisone Cream [Hydrocortisone 2.5% Cream] 1 applic TOPICAL BID PRN 11/08 [History] Ibandronate Sodium [Boniva] 150 mg PO Q30D 11/09/23 [History] Msm(Unknown Dose) 1 tab PO DAILY 11/09/23 [History] Multivitamins, Thera [Multivitamin (formulary)] 1 tab PO DAILY 11/09/23 [History] Vitamin C(Unknown Dose) 1 tab PO DAILY 11/09/23 [History] polyethylene glycoL 3350 [Miralax] 17 gm PO DAILY 11/09/23 [History] Furosemide [Lasix] 40 mg PO DAILY 30 Days #30 tab 11/15/23 [Rx] Follow up Appointment(s)/Referral(s): Rajan Salas MD [STAFF PHYSICIAN] - 11/22/23 9:30 am (with JOSH guallpa) Hugh Walter MD [Primary Care Provider] - 1-2 days (please call to make your appointment, office closed for lunch at time of discharge.) [facility] [NON-STAFF] - As Needed (CALL [facility] FOR CONCENTRATOR) Eduar Louise MD [STAFF PHYSICIAN] - 1 Week (please call to make your appointment, office closed for lunch at time of discharge.) Patient Instructions/Handouts: Heart Failure (DC), A-fib (Atrial Fibrillation) (DC), Using Oxygen at Home (DC) Activity/Diet/Wound Care/Special Instructions: Activity: As tolerated. Take breaks as needed. Diet: Heart healthy and carb consistent diet. Avoid salts, or foods with hidden salts such as canned or boxed foods and frozen dinners. Extra salt makes your heart work harder and traps the fluid in your body for longer. Special Instructions: Take all of your medications as directed and remember to keep all of your docto r's appointments and follow-up as needed. Thank you for allowing us to participate in your care, it was truly a pleasure having you for our patient!!! . Discharge/Stand Alone Forms: Who Do I Call?, Personal Diabetes Trainer Discharge Disposition: HOME SELF-CARE
[2023-11-15] MEDS: POTASSIUM CHLORIDE ER 20 MEQ TAB.ER PO STA (10:59)
[2023-11-15 12:11] VITALS: PULSE 76
--- NOTE | 2023-11-15 13:24 | P.PN ---
Subjective Progress Note Date: 11/15/23 On today's evaluation of the , the patient was taken off the BiPAP and the patient is currently on 8 L of O2 nasal cannula which was further weaned down to 6 L. Current pulse ox is in the order of 95%. Cardiac rhythm is A-fib yet with a controlled rate. Awaiting repeat labs from today.The patient remains on Lasix 20 g IV every 12 hours. The patient remains on anticoagulation with Eliquis 2.5 mg twice a day. He was started with empiric antibiotic coverage and the patient is currently on IV Unasyn and doxycycline. Awake and alert and ommunicating. The patient has no significant dyspnea at rest. On today's evaluation of 11/11/2023, the patient is being seen for a follow-up. The patient is stable on 2 L of oxygen by nasal cannula. No significant respiratory distress. A barium swallow was completed and the patient was found to have some esophageal dysmotility with a large intrathoracic hiatal hernia in place. As such, the patient has undergone various consultation along with gen eral surgery and the patient was evaluated by 2 general surgeons and thoracic surgery. Patient is being considered for gastropexy and a PEG tube insertion. However, the final decision regarding surgical intervention has not been done. The patient's blood work today shows a BUN of 25 with a creatinine 1.06. WBC count of 10.6 with a hemoglobin 13.8 and a platelet count of 100. The patient remains on IV Unasyn. The patient is also on Lasix 20 mg IV every 12 hours. He is on aspirin. He is on anticoagulation with Eliquis 2.5 mg p.o. twice a day. Rest of the medication remains unchanged. Awake and alert and communicating. Follow-up chest x-rays to be obtained for tomorrow.Echocardiogram completed revealing ejection fraction 55 to 60%, mild pulmonary hypertension, trace to mild MR, mild TR. the cardiac rhythm is a flutter with a controlled rate. The patient is currently off amiodarone. On today's evaluation of 11/12/2023, patient is resting comfortably in bed with no specific complaints. He is currently on 3 days of oxygen by nasal cannula. Repeat chest x-ray was done today and shows cardiomegaly and pulm vessel congestion and pleural effusions and a intrathoracic left-sided hiatal hernia which is quite fairly large in size. After having a nice discussion with the general surgical team and the thoracic team, we decided not to operate on this patient's hiatal hernia. The patient meanwhile is being diuresed with Lasix. The patient is found to have milligrams of IV Lasix every 12 hours. The patient is also on IV Unasyn covering for any aspiration pneumonia. Doing well with no specific complaints. His blood work needs to be repeated tomorrow. His kidney function was improving. His cardiac rhythm is sinus. He is also on anticoagulation with Eliquis 2.5 mg p.o. twice a day. Feeling well. No specific complaints. Awake and alert.The cardiac stress test was also completed and showed no evidence of any reversible ischemia. Today's evaluation of 11/12/2022, the patient is being seen for a follow-up. He is currently down to 2 L of oxygen by nasal cannula. Repeat chest x-ray was done and shows small left-sided pleural effusion. The patient also has a in trathoracic hiatal hernia on the left. Cardiac rhythm is sinus. The patient is calm and comfortable. Oxygenation is gradually improved and the patient is currently down to 2 L of oxygen by nasal cannula. Sodium is at 140, potassium is at 3.7, chloride is at 103 with a bicarb of 34, BUN is at 10 with a creatinine of 0.7. WBC count is at 5.8 with a hemoglobin of 15.5. The patient has no specific complaints otherwise. He remains on IV Unasyn. This can be transition to Augmentin. He is also on Lasix 20 mg IV every 12 hours. This can be transition to oral diuretics. The patient remains on anticoagulation with Eliquis 2.5 mg twice a day. The patient is also on Norvasc. No other signif icant events overnight. Pulse ox can be also monitored and FiO2 can be further weaned down. On today's evaluation of 11/14/2023, the patient is on room air oxygen with a pulse ox around 88 to 89%. No respiratory difficulties. He will likely need home O2. Afebrile and hemodynamically stable. Cardiac rhythm is sinus. No new labs are available from today. The patient has no altered mentation. Remains on anticoagulation with Eliquis 2.5 mg twice a day. Diuretics has been switched to oral 40 mg p.o. twice daily patient is currently on oral Augmentin. The patient is seen today November 15, 2023 in follow-up on the regular medical floor. She is currently sitting up in bed. Awake and alert in no acute distress. She does drop down to 85% on room air with a brief walk. She will be set up for home oxygen. She remains on Augmentin. Anticoagulated with Eliquis. Blood cultures revealed no growth. Sputum culture revealed no growth. White count 5.7. Hemoglobin 15.8. Sodium 138. Potassium 3.4. Bicarb 33. BUN 15. Creatinine 0.87. Glucose 108. Objective - Vital Signs Vital signs: Vital Signs Temp 97.3 F L 11/15/23 07:21 Pulse 76 11/15/23 11:51 Resp 18 11/15/23 07:21 BP 125/81 11/15/23 07:21 Pulse Ox 93 L 11/15/23 08:11 FiO2 80 11/10/23 03:50 Intake & Output 11/14/23 11/15/23 11/15/23 18:59 06:59 18:59 Intake Total 200 Output Total 600 Balance -600 200 Weight 101.5 kg Intake: Oral 200 Output: Urine 600 Other: Voiding Method Urinal Urinal Urinal # Voids 1 # Bowel Movements 1 - Exam GENERAL EXAM: Alert, very pleasant 88-year-old female, on oxygen at 3 L nasal cannula, comfortable in no apparent distress. HEAD: Normocephalic. EYES: Normal reaction of pupils, equal size. NOSE: Clear with pink turbinates. THROAT: No erythema or exudates. NECK: No masses, no JVD. CHEST: No chest wall deformity. LUNGS: Equal air entry with faint crackles in the lung bases CVS: S1 and S2 normal with no audible murmur, irregular rhythm. ABDOMEN: No hepatosplenomegaly, normal bowel sounds, no guarding or rigidity. SPINE: No scoliosis or deformity SKIN: No rashes CENTRAL NERVOUS SYSTEM: No focal deficits, tone is normal in all 4 extremities. EXTREMITIES: There is no peripheral edema. No clubbing, no cyanosis. Peripheral pulses are intact. - Labs CBC & Chem 7: 11/15/23 06:23 11/15/23 06:23 Labs: Abnormal Lab Results - Last 24 Hours (Table) 11/15/23 11/15/23 11/15/23 Range/Units 00:01 06:23 06:23 MCV 100.4 H (80.0-100.0) fL Plt Count 128 L (150-450) k/uL Potassium 3.4 L (3.5-5.1) mmol/L Carbon Dioxide 33 H (22-30) mmol/L Glucose 108 H (74-99) mg/dL POC Glucose (mg/dL) 147 H (70-110) mg/dL Calcium 7.9 L (8.4-10.2) mg/dL Microbiology - Last 24 Hours (Table) 11/09/23 13:28 Blood Culture - Final Blood 11/09/23 13:28 Blood Culture - Final Blood Assessment and Plan Assessment: Acute hypoxic/hypercapnic respiratory failure. Patient is currently off the BiPAP and he has been weaned down to 3 L of oxygen by nasal cannula. Blood gas shows a component of chronic hypercapnic respiratory failure and is quite expected as the patient has a large hiatal hernia occupying the majority of the left lung causing some restrictive physiology on his lungs. Note that the patient is not oxygen dependent. There may be a component of diastolic CHF in the setting of A-fib RVR contributing to his acute hypoxic and hypercapnic respiratory failure. No evidence of pneumonia. No evidence of any pulmonary embolism based on the CTA of the chest. The patient has responded to diuretics and cardiac rhythm seems to be sinus at this point in time. Shortness of breath secondary to above, acute, improving Paroxysmal atrial fibrillation with controlled rate currently on anticoagulation with Eliquis 2.5 mg twice a day, cardiac rhythm was atrial flutter with a controlled rate and the patient is currently off amiodarone. The patient's cardiac rhythm remained sinus. The Lexiscan stress test came back negative for any reversible ischemia. Large hiatal hernia occupying the majority of the left hemithorax along with atelectatic changes in the left lung base, no plans for surgery at this point in time based on age and comorbidities Hypertension Hyperlipidemia BPH History of skin cancer in the form of basal cell carcinoma resected from his left earlobe. Plan: The patient was seen and evaluated Medications and labs reviewed Did qualify for home oxygen This will be set up prior to discharge Anticoagulated with Eliquis Completing a course of Augmentin Continued on diuretics This patient was seen independently by the pulmonary nurse practitioner addressing pulmonary issues I have personally seen and examined the patient, performed the documentation and the assessment and plan as written. Number of minutes spent on the visit: 24.
--- NOTE | 2023-11-15 14:51 | P.PN ---
Subjective Progress Note Date: 11/15/23 CHIEF COMPLAINT: Large hiatal hernia HISTORY OF PRESENT ILLNESS: Patient sitting in chair comfortably. Denies any abdominal pain. Denies any difficulty swallowing. They are working on arranging home O2 and plans for discharge later today. PHYSICAL EXAM: VITAL SIGNS: Reviewed GENERAL: Well-developed in no acute distress. HEENT: No sclera icterus. Extraocular movements grossly intact. Moist buccal mucosa. Head is atraumatic, normocephalic. Hears conversational speech. No nasal drainage. NECK: Supple without lymphadenopathy. CHEST: Non-labored respirations and equal bilateral excursions. CARDIOVASCULAR: Palpable 2+ radial pulses. ABDOMEN: Soft. Nondistended. Nontender. MUSCULOSKELETAL: No clubbing or cyanosis. NEUROLOGIC: No focal or lateralizing signs. Cranial nerves II through XII grossly intact. PSYCH: Appropriate affect. Alert and oriented to person, place and time. SKIN: Well perfused. Good skin turgor. ASSESSMENT: 1. Symptomatic large hiatal hernia containing stomach and the majority of the left lung 2. Atrial fibrillation with rapid ventricular sponsor 3. Hypertensive cardiomyopathy with congestive heart failure 4. Presbyesophagus with dysphagia PLAN: -No surgical intervention planned -Patient can be discharged from surgical standpoint Physician Aquatic Biologist note has been reviewed by physician. Signing provider agrees with the documented findings, assessment, and plan of care. Objective - Vital Signs Vital signs: Vital Signs Temp 97.3 F L 11/15/23 07:21 Pulse 76 11/15/23 11:51 Resp 18 11/15/23 07:21 BP 125/81 11/15/23 07:21 Pulse Ox 93 L 11/15/23 08:11 FiO2 80 11/10/23 03:50 Intake & Output 11/14/23 11/15/23 11/15/23 18:59 06:59 18:59 Intake Total 200 Output Total 600 Balance -600 200 Weight 101.5 kg Intake: Oral 200 Output: Urine 600 Other: Voiding Method Urinal Urinal Urinal # Voids 1 # Bowel Movements 1 - Labs CBC & Chem 7: 11/15/23 06:23 11/15/23 06:23 Labs: Abnormal Lab Results - Last 24 Hours (Table) 11/15/23 11/15/23 11/15/23 Range/Units 00:01 06:23 06:23 MCV 100.4 H (80.0-100.0) fL Plt Count 128 L (150-450) k/uL Potassium 3.4 L (3.5-5.1) mmol/L Carbon Dioxide 33 H (22-30) mmol/L Glucose 108 H (74-99) mg/dL POC Glucose (mg/dL) 147 H (70-110) mg/dL Calcium 7.9 L (8.4-10.2) mg/dL Microbiology - Last 24 Hours (Table) 11/09/23 13:28 Blood Culture - Final Blood 11/09/23 13:28 Blood Culture - Final Blood
--- NOTE | 2023-11-18 18:59 | CDI ---
Documentation Clarification Form Date: 11/18/2023 From: Destiny Gonsales Admit Date: 11/09/2023 05:52:00 PM Patient Name: Carola Johnson Visit Number: [id number] Discharge Date: 11/15/2023 01:12:00 PM ATTENTION: The Clinical Documentation Specialists (CDI) and [facility] Coding Staff appreciate your assistance in clarifying documentation. Please respond to the clarification below the line at the bottom and electronically sign. The CDI & [facility] Coding staff will review the response and follow-up if needed. Please note: Queries are made part of the Legal Health Record. If you have any questions, please contact the author of this message via ITS. Dr. Ronald Mcfarlane The patient has suspected Bilateral lower lobe pneumonia, possible aspiration. Based on this information and the findings below, is there an additional diagnosis that is clinically appropriate for this patient? History/Risk Factors: 88yo presented w/ acute hypoxic/hypercapnic respiratory failure, large hiatal hernia and a-fib w/ RVR. Clinical Indicators: Per IM PN on 11/09 noted, Vital signs upon arrival positive for sepsis WBC: 11/08 3.8, 11/09 12.6, 11/10 10.6 Lactic Acid 11/08: 1.3 Blood cultures 11/08: No growth at 5 days CXR 11/08: elevated L hemidiaphragm w/ B/L lower lobe infiltrate CT chest 11/08: lg hiatal hernia containing the stomach taking a majority of the left lung, low lung volumes w/ basilar atelectasis FL Barium swallow 11/09: esophageal dysmotility w/ lg hiatal hernia w/ the stomach in the thorax CXR 11/11: Cardiomegaly, PVC, B/L pleural effusions Vitals signs: 11/08 @ 1315 100.7, 105, 17, 109/59, 67% on RA 11/09 @ 0755 98.1, 75, 20, 98/62, 95% on 8L high-flow NC Treatment: Unasyn IV, Rocephin IV, IV bolus, IVF, Augmentin po, BiPAP supplemental O2 Is there an additional diagnosis that is clinically appropriate for this patient? [ x] Sepsis 2nd to suspected Bilateral lower lobe pneumonia, possible aspiration [ ] SIRS 2nd to non-infectious process (please specify) [ ] No additional diagnosis/not clinically significant [ ] Other, please specify [ ] Unable to determine SIRS Criteria: 2 or more of the following may indicate SIRS Temperature < 96.8F (36C) or > 101.0F (38.3C) Heart Rate > 90 bpm Respiratory Rate > 20 breaths/min or PaCO2 < 32 mmHg White Blood Cell Count > 12,000 or < 4,000 cells/mm3 or > 10% bands (Template Last Reviewed: August 2022) MTDD
== END 2023-11-15 13:12 | disposition home or self-care (01) | DRG 871 ==
LOC: EC 13:08 → 3SCARD 17:52 → 5NMEDONC 11-13 22:34
PROVIDERS: ADMIT Internal Medicine; ATTEND Internal Medicine
PROC: 5A09357 Assistance with Respiratory Ventilation, Less than 24 Consecutive Hours, Continuous Positive Airway Pressure (ICD-10-PCS; principal; 2023-11-11)
DX: A41.9 Sepsis, unspecified organism (principal); J69.0 Pneumonitis due to inhalation of food and vomit; J96.21 Acute and chronic respiratory failure with hypoxia; J96.22 Acute and chronic respiratory failure with hypercapnia; I43 Cardiomyopathy in diseases classified elsewhere; I48.3 Typical atrial flutter; I50.32 Chronic diastolic (congestive) heart failure; D69.6 Thrombocytopenia, unspecified; I27.20 Pulmonary hypertension, unspecified; I11.0 Hypertensive heart disease with heart failure; I48.0 Paroxysmal atrial fibrillation; I45.10 Unspecified right bundle-branch block; K44.9 Diaphragmatic hernia without obstruction or gangrene; R47.02 Dysphasia; N40.0 Benign prostatic hyperplasia without lower urinary tract symptoms; I25.10 Atherosclerotic heart disease of native coronary artery without angina pectoris; I08.1 Rheumatic disorders of both mitral and tricuspid valves; K22.4 Dyskinesia of esophagus; K22.89 Other specified disease of esophagus; E78.5 Hyperlipidemia, unspecified; F41.0 Panic disorder [episodic paroxysmal anxiety]; Z99.81 Dependence on supplemental oxygen; Z79.82 Long term (current) use of aspirin; Z79.01 Long term (current) use of anticoagulants; Z11.52 Encounter for screening for COVID-19; Z79.899 Other long term (current) drug therapy; Z85.828 Personal history of other malignant neoplasm of skin
CPT/HCPCS: 36415; 36600; 71045; 71046; 71275; 74220; 78452; 80048; 80053; 81001; 82805; 83605; 83735; 83880; 84134; 84484; 85025; 85027; 85610; 85730; 87040; 87086; 87636; 93005; 93017; 94640; 94660; 94760; 96361; 96365; 96366; 96374; 96375; 99285; 99291